=== PATIENT | male | born 1950 | race Caucasian/White ===

== ENCOUNTER 2017-01-07 12:32 | Inpatient (IN) | payer OTHER ==
[2017-01-07 12:54] VITALS: BMI 18.0
--- NOTE | 2017-01-07 13:27 | PDOC ---
History of Present Illness - General Stated Complaint: Tube Problem Time Seen by Provider: 01/07/17 13:10 - History of Present Illness Initial Comments: 66 year old male with PMH of hypothyroidism, insulin-dependent diabetes, DVTs ( previously on Coumadin), dementia, CVA, and basal cell carcinoma (s/p resection of facial lesions) presenting for right nephrostomy tube replacement. Per his long-term his right nephrostomy tube came out yesterday when he was turning in bed. He had a left nephrostomy tube as well that was removed a few months prior. The patient himself actually was only complaining of "My neck hurts, my feet hurt, and my kim hurts". Denies fevers, chills, nausea vomiting, diarrhea , or any other sick symptoms. His PCP is Dr. Nuha Ventura (unavailable) and patient is unsure who performed his nephrostomy tube placement but per his urologist (Dr. Melendez covering for Dr. Rivera) it was performed at [facility] (originally believed to be performed by Dr. Patel). 01/07/17 14:56 Past History - Past Medical History Allergies/Adverse Reactions: Allergies Allergy/AdvReac Type Severity Reaction Status Date / Time Sqvizmf-Ria-Xan Reductase Allergy Verified 02/17/13 09:42 Inhibitor Home Medications: Ambulatory Orders Carboxymethylcellulose Sodium [Refresh Plus] 1 each OP DAILY 01/07/17 Insulin Glargine,Hum.rec.anlog [Lantus (nf)] 12 units SQ HS 01/07/17 Insulin Sliding Scale [Novolog Vial Sliding Scale -] 0 units SQ TIDAC 01/07/17 Levothyroxine [Synthroid -] 175 mcg PO DAILY 01/07/17 Metoprolol Succinate [Toprol Xl -] 25 mg PO PRN 01/07/17 Oxycodone HCl/Acetaminophen [Percocet 5-325 mg Tablet] 2 tab PO Q6H 01/07/17 Ranitidine HCl [Zantac] 150 mg PO DAILY 01/07/17 Cancer: Yes (FACIAL SKIN CARCINOMA-RIGHT CHEECK) Cardiac Disorders: Yes (BLOOD CLOTS, R THIGH AND R KNEE) CVA: Yes (X6 PER PT.) Dementia: Yes (EARLY DEMENTIA, SLOW SPEECH) Diabetes: Yes (IDDM) Disorders: Yes (URINARY RETENTION) HTN: Yes Hypercholesterolemia: Yes Thyroid Disease: Yes (hypothyrodism) - Surgical History Orthopedic Surgery: Yes (L. Radius & Ulna) - Psycho/Social/Smoking Cessation Hx Anxiety: No Suicidal Ideation: No Smoking Status: No Smoking History: Never smoked Have you smoked in the past 12 months: No Number of Cigarettes Smoked Daily: 0 Information on smoking cessation initiated: No Hx Alcohol Use: No Drug/Substance Use Hx: No Substance Use Type: None Hx Substance Use Treatment: No Review of Systems - Review of Systems Constitutional: No: Chills, Diaphoresis, Fever HEENTM: No: Blurred Vision, Recent change in vision Respiratory: No: Cough, Shortness of Breath, Wheezing Cardiac (ROS): No: Chest Pain : Yes: Other (complains of generalized penis pain). No: Burning, Dysuria, Discharge Integumentary: No: Bruising, Erythema Neurological: No: Headache, Numbness *Physical Exam - Vital Signs Last Vital Signs Temp Pulse Resp BP Pulse Ox 98.7 F 67 18 138/71 97 01/07/17 12:48 01/07/17 12:48 01/07/17 12:48 01/07/17 12:48 01/07/17 12:48 - Physical Exam General Appearance: Yes: Nourished, Thin. No: Apparent Distress HEENT: positive: EOMI Neck: positive: Trachea midline, Supple. negative: Tender, Rigid Respiratory/Chest: positive: Other (Bilateral basilar crackles). negative: Chest Tender, Lungs Clear, Normal Breath Sounds, Respiratory Distress, Accessory Muscle Use Cardiovascular: positive: Regular Rhythm, Regular Rate, S1, S2. negative: Edema , Murmur Gastrointestinal/Abdominal: positive: Normal Bowel Sounds, Flat, Soft. negative : Tender Male Genitalia: positive: other (I attempted to examine the patient's penis but deferred the exam.) Musculoskeletal: positive: Normal Inspection, Other (Neck non tender.) Extremity: positive: Normal Capillary Refill, Normal Range of Motion, Other ( Toe nails appear to be in poor shape but not TTP anywhere.) Integumentary: positive: Warm, Pale Neurologic: positive: Fully Oriented, Alert, Motor Strength 5/5, Other (Despite verbal report of quadrapalagia, he is able to move all of his limbs). negative : Normal Mood/Affect (Easily able to agitated) ED Treatment Course - LABORATORY CBC & Chemistry Diagram: 01/07/17 13:53 01/07/17 13:53 Medical Decision Making - Medical Decision Making 66 year old male coming from long-term for right nephrostomy tube replacement. No other symptoms. Labs significant for elevated Cr to 2.2 and hyponatremia to 133. Patient is AOx3 but is a poor medical office technologist and doesn' t recall the reason he is in the ED or who placed his nephrostomy tube or where it was placed. Dr. Melendez (covering for Dr. Rivera) originally believed that his tube was placed by Dr. Patel but later found out his tube was placed at [facility]. He was sent to radiology to have the right tube replaced but directly prior to the procedure, he refused to sign the consent. He also has evidence of an SHARMILA per the values in the chart. Cr. 2.2 up from 0.6 4 years ago. This is most likely an element of CKD but further verification needs to take place. The patient will be admitted for further medial workup and nephrostomy tube replacement. 01/07/17 14:54 *DC/Admit/Observation/Transfer Diagnosis at time of Disposition: Nephrostomy complication, SHARMILA (acute kidney injury) - Discharge Dispostion Admit: Yes - Attestations Physician Attestion: 01/07/17 16:29 I, Dr. Desirae Landrum, attest that this document has been prepared under my direction and personally reviewed by me in its entirety. I further attest, that it accurately reflects all work, treatment, procedures and medical decision -making performed by me.
[2017-01-07 14:07] LABS: BASOPHIL 0.9 % (0-2.0); EOSINOPHIL 1.1 % (0-4.5); MCH 29.6 pg (25.7-33.7); MCHC 32.7 g/dl (32.0-35.9); MEAN CELL VOLUME 90.3 fl (80-96); MEAN PLT VOLUME 7.4 fl (7.5-11.1); NEUTROPHILS 64.9 % (42.8-82.8); PLATELET COUNT 237 K/MM3 (134-434); RDW 14.8 % (11.9-15.9); WHITE BLOOD COUNT 6.2 K/mm3 (4.0-10.0)
[2017-01-07 14:31] LABS: ALBUMIN 3.1 g/dl (3.4-5.0); ANION GAP 11 (8-16); CALCIUM 9.7 mg/dL (8.5-10.1); CO2 24 mmol/L (21-32); GLUCOSE,RANDOM 260 mg/dL (74-106)
[2017-01-07 14:33] LABS: INR 1.08 (0.82-1.09); PROTHROMBIN TIME (PATIENT) 11.9 SEC (9.98-11.88)
[2017-01-07 14:35] LABS: ALK PHOS 89 U/L (45-117); BILIRUBIN,TOTAL 0.8 mg/dL (0.2-1.0); CREATININE 2.2 mg/dL (0.7-1.3); SGPT/ALT 10 U/L (12-78); TOT PROT 7.9 g/dl (6.4-8.2)
[2017-01-07 14:36] LABS: ACTIVATED PTT 31.6 SECONDS (26.9-34.4)
[2017-01-07 14:47] LABS: SGOT/AST 9 U/L (15-37)
--- NOTE | 2017-01-07 15:02 | PDOC ---
Attending Attestation - HPI HPI: 01/07/17 15:05 Patient is a 66 year old male with significant past medical history of diabetes , Dementia , stroke, recurring UTIs who was brought in from [facility] to the ED with concerns that his right nephrostomy tube has fallen out earlier today. Patient is bed bound. Per [facility] staff patient has a chronic indwelling nephrostomy tube for months. They report the tube being dislodged today. He was sent for tube replacement by Dr. Ruben Rivera. Denies fever, chills. Denies nausea, vomiting dizziness. Denies chest pain, SOB, weakness. Denies any other symptoms. PMD: Nuha - Physicial Exam PE: 01/07/17 15:05 GENERAL: Awake, alert, and fully oriented, in no acute distress HEAD: No signs of trauma EYES: PERRLA, EOMI, sclera anicteric, conjunctiva clear ENT: Auricles normal inspection, nares patent, Moist mucosa NECK: Normal ROM, supple, no lymphadenopathy, JVD, or masses LUNGS: Breath sounds equal, clear to auscultation bilaterally. No wheezes, and no crackles HEART: Regular rate and rhythm, normal S1 and S2, no murmurs, rubs or gallops ABDOMEN: Soft, nontender, normoactive bowel sounds. No guarding, no rebound. No masses EXTREMITIES: + 5/5 Upper extremities and Lower extremities. Normal range of motion, no edema. No clubbing or cyanosis. No cords, erythema, or tenderness NEUROLOGICAL: +AAO x3 Normal speech SKIN: +Feet are contracted Warm, Dry, normal turgor, no rashes or lesions noted. - Medical Decision Making 01/07/17 15:05 Documentation prepared by Pineda Miranda, acting as medical assistant ob gyn for Yaritza Loving MD. <Pineda Miranda - Last Filed: 01/07/17 15:05> - Resident Resident Name: Desirae Landrum - ED Attending Attestation I have performed the following: I have examined & evaluated the patient, The case was reviewed & discussed with the resident, I agree w/resident's findings & plan, Exceptions are as noted - Medical Decision Making 01/07/17 15:01 66 yo M h/o DM HTN HLD prior CVA, bed bound her from [facility] with need for right nephrostomy replacement. plan will d/w dr rivera, or IR, and likely admit for procedure. labs preop. no current sx or sxs or infection. 01/07/17 15:43 pt alert and oriented x 3. moves all ext. at this time refusing nephrostomy placement. unclear why nephrostomy was placed, was placed at [facility], pt pcp dr. Box is out of town , no one covering . d/w covering for tommy rivera, Dr Arroyo who is unaware of why nephrostomy is indicated. pt with acute renal failure creatinine 2.[address] w/o contrast. consult by nephrology to eval necesity of tube placement. <Yaritza Loving - Last Filed: 01/07/17 15:45>
--- NOTE | 2017-01-07 15:34 | PROC ---
Procedure Note Procedure: Interventional Radiology Pre-procedure Note: Patient sent from ED for R percutaneous nephrostomy tube replacement. Seen by Dr. Mosher and myself. Patient was briefed on procedure and refused to consent, stating "I'm not signing anything". When informed of possible medical risks/ complications of refusing the procedure, patient acknowledged risks and continued to refuse procedure. Dr. Landrum was notified and witnessed refusal, as well. Joe Meyers, PGY1 Attending Physician: Dr. Mosher
[2017-01-07 15:38] LABS: URINE APPEARANCE CLOUDY; URINE BILIRUBIN NEGATIVE (NEGATIVE); URINE BLOOD 3+ (NEGATIVE); URINE COLOR DKYELLOW; URINE GLUCOSE (UA) 2+ (NEGATIVE); URINE KETONE TRACE (NEGATIVE); URINE NITRITE NEGATIVE (NEGATIVE); URINE UROBILINOGEN NEGATIVE mg/dL (0.2-1.0)
[2017-01-07 15:45] LABS: URINE LEUK ESTERASE 2+ (NEGATIVE); URINE PROTEIN 2+ (NEGATIVE)
[2017-01-07 15:48] LABS: URINE BACTERIA RARE /hpf (NONE SEEN); URINE RBC 149 /hpf (0-3); URINE WBC 448 /hpf (3-5)
--- NOTE | 2017-01-07 17:02 | HP ---
CHIEF COMPLAINT: PCP: HISTORY OF PRESENT ILLNESS: 66 year-old male, resident of [facility] in [place], with a PMH significant for mild mental retardation, dementia, h/o CVA, IDDM, h/o DVTs ( previously on coumadin), hypothyroidism, basal cell carcinoma s/p resection of facial lesions, urinary retention, and bilateral nephrostomy tubes. of unclear etiology. Patient brought to ED today because his right nephrostomy tube came out yesterday when he was turning in bed. Patient had a left nephrostomy tube which was reportedly removed a few months ago. Patient was taken from ED to IR suite for placement of a right percutaneous nephrostomy tube. but he refused to sign consent. Patient cannot give an accurate history, he appears severely circumscribed by his mental deficiencies. Reviewed records accompanying the patient from [facility]. There are no health care directives. PCP: Dr. Terry Ventura Urologist: Dr. Ruben Rivera (Dr. Melendez covering) ER course was notable for: (1) Na 133, BUN 36, Cr 2.2 (2) Corrected calcium 10.4 Recent Travel: No PAST MEDICAL HISTORY: Mild mental retardation Dementia h/o CVA IDDM h/o DVTs not on anticoagulation Hypothyroidism Basal cell carcinoma Urinary retention PAST SURGICAL HISTORY: Bilateral nephrostomy tubes Social History: Smoking: Alcohol: Drugs: Family History: Allergies Akeishp-Tez-Vja Reductase Inhibitor Allergy (Verified 02/17/13 09:42) Home Medications Medication Instructions Recorded Carboxymethylcellulose Sodium 1 each OP DAILY 01/07/17 [Refresh Plus] Insulin Glargine,Hum.rec.anlog 12 units SQ HS 01/07/17 [Lantus (nf)] Insulin Sliding Scale [Novolog 0 units SQ TIDAC 01/07/17 Vial Sliding Scale -] Levothyroxine [Synthroid -] 175 mcg PO DAILY 01/07/17 Metoprolol Succinate [Toprol Xl -] 25 mg PO PRN 01/07/17 Oxycodone HCl/Acetaminophen 2 tab PO Q6H 01/07/17 [Percocet 5-325 mg Tablet] Ranitidine HCl [Zantac] 150 mg PO DAILY 01/07/17 REVIEW OF SYSTEMS Unable to obtain due to patient's mental retardation v. dementia PHYSICAL EXAMINATION Vital Signs Temperature 98.7 F 01/07/17 12:48 Pulse Rate 67 01/07/17 12:48 Respiratory Rate 18 01/07/17 12:48 Blood Pressure 138/71 01/07/17 12:48 O2 Sat by Pulse Oximetry (%) 97 01/07/17 12:48 GENERAL: A&O x 1; confused about place and time. Irritable. Allowed only partial physical exam, "leave me alone." HEAD: Normal with no signs of trauma. EYES: Pupils equal, round and reactive to light, extraocular movements unable to be assessed; sclera anicteric, conjunctiva clear. No ptosis EARS, NOSE, THROAT: Refused exam NECK: Normal range of motion, supple without lymphadenopathy, JVD, or masses. LUNGS: Refused exam HEART: Regular rate and rhythm, normal S1 and S2, +murmur ABDOMEN: Refused exam : mcbride in place, dark urine in leg bag MUSCULOSKELETAL: Refused exam UPPER EXTREMITIES: 2+ pulses, warm, well-perfused. No cyanosis. No clubbing. No peripheral edema. LOWER EXTREMITIES: 2+ pulses, warm, well-perfused. No calf tenderness. No peripheral edema. NEUROLOGICAL: Cranial nerves II-XII intact. Normal speech. PSYCHIATRIC: Irritable. Cursing. Uncooperative. ASSESSMENT/PLAN 66 year-old male, [place] resident, with a PMH significant for mild mental retardation, dementia, h/o CVA, IDDM, h/o DVTs not on a/c, hypothyroidism, basal cell carcinoma s/p resection of facial lesions, urinary retention, and bilateral nephrostomy tubes. Admitted for SHARMILA, and displaced right nephrostomy tube. Displaced right nephrostomy tube --presently refusing to consent to procedure to replace tube --unable to get history from patient and EMR is unrevealing as to why nephrostomy tubes were placed --urology consult requested --IR on board SHARMILA --Cr 2.2, baseline unclear; labs from 11/18/16 show Cr 2.0; Cr was 0.6 in 2013 --US renal pending --check FeNa --IV fluids --renal consult requested Hypercalcemia --check ECG --IV fluids for now Urinary retention Chronic indwelling mcbride UTI --patient came from [place] with mcbride --448 WBCs in urine --start ceftriaxone Hypothyroidism --labs from 11/18/16 show TSH wnl --continue levothyroxine Mental retardation v. dementia --question of competency --will contact [facility] to get better history, advanced directives, etc. ; if none, will have to get psych assessment F/E/N Fluids: NS @ 100mL/hr Electrolytes: replete as indicated Nutrition: diabetic diet; NPO after midnight for possible procedure tomorrow DVT prophylaxis: hold chemical prophylaxis for now pending nephrostomy tube placement; oob, ambulation, SCDs Dispo: quecontinues to require inpatient care. Full code. Visit type - Emergency Visit Emergency Visit: Yes ED Registration Date: 01/07/17 Care time: The patient presented to the Emergency Department on the above date and was hospitalized for further evaluation of their emergent condition. - New Patient This patient is new to me today: Yes Date on this admission: 01/07/17 - Critical Care Critical Care patient: No
[2017-01-07] MEDS ORDERED: METOPROLOL SUCCINATE 25 MG TAB.SR.24H (FP) PO SCH (17:15)
[2017-01-07] MEDS ORDERED: SODIUM CHLORIDE 1,000 ML IV SCH (17:45)
--- NOTE | 2017-01-07 18:45 | EKG ---
Test Reason : Blood Pressure : / mmHG Vent. Rate : 062 BPM Atrial Rate : 062 BPM P-R Int : 172 ms QRS Dur : 086 ms QT Int : 450 ms P-R-T Axes : 044 -17 065 degrees QTc Int : 456 ms NORMAL SINUS RHYTHM SEPTAL INFARCT , AGE UNDETERMINED ABNORMAL ECG WHEN COMPARED WITH ECG OF 17-FEB-2013 10:55, Q WAVE IS NOW RECORDED IN V2 REPEAT EKG IF CLINICALLY INDICATED Confirmed by DORINDA LEYVA MD ([id number]) on 01/07/2017 6:45:01 PM Referred By: Confirmed By:DORINDA LEYVA MD
[2017-01-07] MEDS: RANITIDINE HCL 150 MG TABLET (FP) PO SCH (21:31)
[2017-01-07] MEDS: CEFTRIAXONE 1 GM in DEXTROSE 5%-WATER - 50 ML IVPB SCH (21:32)
[2017-01-07] MEDS: LEVOTHYROXINE NA 175 MCG TABLET PO SCH (21:32)
[2017-01-07] MEDS ORDERED: INSULIN DETEMIR 100 UNITS/ML MDV SQ SCH ×2 (22:00)
[2017-01-07] MEDS: INSULIN SLIDING SCALE (NOVOLOG) 1 VIAL SQ SCH (22:14)
[2017-01-07] MEDS: HEPARIN NA (PORCINE) 5,000 UNITS/ML 1ML VIAL SQ SCH (22:15)
[2017-01-07] MEDS ORDERED: ACETAMINOPHEN 500 MG TABLET (FP) PO ONE (22:28)
[2017-01-08] MEDS ORDERED: oxyCODONE HCL 5 MG TABLET PO ONE (01:05)
[2017-01-08] MEDS ORDERED: ACETAMINOPHEN 325 MG TABLET (FP) PO ONE (01:05)
[2017-01-08] MEDS ORDERED: oxyCODONE HCL 5 MG TABLET ONE (01:24)
[2017-01-08 07:27] LABS: MCH 29.5 pg (25.7-33.7); MCHC 29.4 g/dl (32.0-35.9); MEAN CELL VOLUME 100.5 fl (80-96); MEAN PLT VOLUME 7.4 fl (7.5-11.1); PLATELET COUNT 381 K/MM3 (134-434); RDW 16.3 % (11.9-15.9)
[2017-01-08 07:29] LABS: ALBUMIN 3.3 g/dl (3.4-5.0); ALK PHOS 105 U/L (45-117); BILIRUBIN,TOTAL 0.7 mg/dL (0.2-1.0); CALCIUM 10.3 mg/dL (8.5-10.1); CREATININE 3.3 mg/dL (0.7-1.3); MAGNESIUM 2.6 mg/dL (1.8-2.4); SGOT/AST 6 U/L (15-37); SGPT/ALT 10 U/L (12-78); TOT PROT 8.2 g/dl (6.4-8.2)
[2017-01-08 07:34] LABS: ANION GAP 32 (8-16); CO2 4 mmol/L (21-32)
[2017-01-08 07:39] LABS: GLUCOSE,RANDOM 691 mg/dL (74-106)
[2017-01-08] MEDS: PROPOFOL 100 ML IVPB SCH (08:00)
[2017-01-08] MEDS ORDERED: INSULIN REGULAR HUMAN 100 UNITS/ML *VIAL IVPUSH ONE (08:07)
[2017-01-08] MEDS ORDERED: DEXTROSE 50%-WATER - 25 GM/50 ML VIAL IVPUSH ONE (08:08)
[2017-01-08] MEDS ORDERED: SODIUM CHLORIDE 1,000 ML IV STA ×2 (08:12→08:22)
[2017-01-08] MEDS ORDERED: INSULIN REGULAR 100 UNITS in SODIUM CHLORIDE 99 ML IVPB SCH (08:15)
[2017-01-08] MEDS ORDERED: SODIUM CHLORIDE 1,000 ML IV SCH ×3 (08:30→21:13)
[2017-01-08] MEDS ORDERED: CALCIUM GLUCONATE 10% - 1,000 MG/10 ML VIAL IVPUSH ONE (08:32)
[2017-01-08 08:35] LABS: ALLENS TEST POSITIVE; ART PUNCT SITE LEFT RADIAL; ARTERIAL BLD GAS O2 SATURATION 97.1 % (90-98.9); ARTERIAL BLOOD GAS BASE EXCESS -29.5 meq/l (-2-2); ARTERIAL BLOOD GAS HCO3 1.8 meq/L (22-26); LPM/O2% 2L; PT. ON O2? YES; TYPE OF O2 NASAL CANNULA
[2017-01-08 08:36] LABS: ARTERIAL BLOOD GAS pH 6.97 (7.35-7.45)
[2017-01-08 08:39] LABS: BASOPHIL 1.2 % (0-2.0); EOSINOPHIL 0.1 % (0-4.5); NEUTROPHILS 89.7 % (42.8-82.8)
[2017-01-08] MEDS ORDERED: ETOMIDATE 20 MG/10 ML AMPUL IVPUSH ONE (08:44)
[2017-01-08] MEDS ORDERED: PROPOFOL 100 ML ONE ×2 (08:45→12:20)
--- NOTE | 2017-01-08 09:14 | PN ---
Physical Exam: ADDITIONAL HISTORY: Received and reviewed medical records from [facility]. Additional Medical History Hypertension Neurogenic bladder BPH Chronic kidney disease Bladder mass Quadriplegia/Paraplegia Additional Surgical History s/p left ureteral JJ stent placement 11/20/16 Recent hospitalization 11/20/16 admitted to [facility] for a displaced LEFT nephrostomy tube. A right nephrectomy tube was in situ at the time. On 11/26/16 patient underwent left ureteral JJ stent placement, TURBT, bladder mass biopsy, and fulgaration of bladder mass. Procedure performed by Dr. Gab Ambrosio. Patient was discharged back to [place] on 11/28/16. SUBJECTIVE: Patient seen and examined in ICU. OBJECTIVE: Vital Signs Period Temp Pulse Resp BP Sys/Franklin Pulse Ox Last 24 Hr 98 F 87-120 18-32 121-156/65-78 GENERAL/NEURO: The patient is not responsive, not responding to voice or physical stimuli, in severe respiratory distress. Intubated. HEAD: Normal with no signs of trauma. LUNGS: Tachypnic. HEART: Regular rate and rhythm, S1, S2 without murmur, rub or gallop. ABDOMEN: Soft, nontender, nondistended EXTREMITIES: 2+ pulses, warm, well-perfused, no edema. NEUROLOGICAL: Cranial nerves II through XII grossly intact. Normal speech, gait not observed. Laboratory Results - last 24 hr 01/08/17 01/08/17 01/08/17 06:00 06:00 06:34 WBC 15.0 H D RBC 3.84 L Hgb 11.3 L Hct 38.5 MCV 100.5 H MCH 29.5 MCHC 29.4 L RDW 16.3 H D Plt Count 381 D MPV 7.4 L Neutrophils % 89.7 H D Lymphocytes % 6.0 L D Monocytes % 3.0 L Eosinophils % 0.1 D Basophils % 1.2 Anticoagulation Therapy Puncture Site ABG pH ABG pCO2 at Pt Temp ABG pO2 at Pt Temp ABG HCO3 ABG O2 Sat (Measured) ABG O2 Content ABG Base Excess Oleksandr Test O2 Delivery Device Oxygen Flow Rate Vent Mode Vent Rate Mechanical Rate PEEP Pressure Support Vent Sodium 128 L Potassium 6.5 H* D Chloride 92 L Carbon Dioxide 4 L D Anion Gap 32 H BUN 56 H D Creatinine 3.3 H D Creat Clearance w eGFR 18.85 POC Glucometer > 600 Random Glucose 691 H* D Calcium 10.3 H Phosphorus 7.0 H D Magnesium 2.6 H D Total Bilirubin 0.7 AST 6 L D ALT 10 L Alkaline Phosphatase 105 Total Protein 8.2 Albumin 3.3 L 01/08/17 08:21 WBC RBC Hgb Hct MCV MCH MCHC RDW Plt Count MPV Neutrophils % Lymphocytes % Monocytes % Eosinophils % Basophils % Anticoagulation Therapy Y Puncture Site Left radial ABG pH 6.97 L* ABG pCO2 at Pt Temp 8.2 L* ABG pO2 at Pt Temp 140.0 H ABG HCO3 1.8 L* ABG O2 Sat (Measured) 97.1 ABG O2 Content 14.3 L ABG Base Excess -29.5 L* Oleksandr Test Positive O2 Delivery Device Nasal cannula Oxygen Flow Rate 2l Vent Mode Y Vent Rate Y Mechanical Rate Y PEEP 0.0 Pressure Support Vent Y Sodium Potassium Chloride Carbon Dioxide Anion Gap BUN Creatinine Creat Clearance w eGFR POC Glucometer Random Glucose Calcium Phosphorus Magnesium Total Bilirubin AST ALT Alkaline Phosphatase Total Protein Albumin Active Medications Generic Name Dose Route Start Last Admin Trade Name Freq PRN Reason Stop Dose Admin Clopidogrel Bisulfate 75 mg 01/08/17 10:00 Plavix - PO DAILY [facility] Heparin Sodium (Porcine) 5,000 unit 01/07/17 22:00 01/07/17 22:15 Heparin - SQ Not Given BID [facility] Ceftriaxone Sodium 1 gm/ 50 mls @ 100 mls/hr 01/07/17 19:15 01/07/17 21:32 Dextrose IVPB Not Given DAILY [facility] Insulin Human Regular 100 100 mls @ 5.53 mls/hr 01/08/17 08:15 units/ Sodium Chloride IVPB TITR CLARE Protocol 0.1 UNITS/KG/HR Sodium Chloride 1,000 mls @ 1,000 mls/hr 01/08/17 08:22 Normal Saline - IV 01/08/17 09:21 ASDIR STA Sodium Chloride 1,000 mls @ 200 mls/hr 01/08/17 08:30 Normal Saline - IV ASDIR CLARE Fentanyl 500 mcg/ Dextrose 100 mls @ 20 mls/hr 01/08/17 09:15 IJ TITR CLARE 100 MCG/HR Levothyroxine Sodium 175 mcg 01/07/17 17:15 0822/17 21:32 Synthroid - PO Not Given DAILY [facility]ARE Ranitidine HCl 150 mg 01/07/17 17:15 01/07/17 21:31 Zantac - PO Not Given DAILY CLARE ASSESSMENT/PLAN 66 year-old male, [place] resident, with a PMH significant for HTN, dementia/ otherwise unspecified psych disorder, h/o CVA on Plavix, IDDM, h/o DVTs not on a /c, hypothyroidism, basal cell carcinoma s/p resection of facial lesions, CKD, neurogenic bladder, bladder mass, s/p left ureteral JJ stent and bilateral nephrostomy tubes (both out at present), and paraplegia. Admitted for SHARMILA and displaced right nephrostomy tube. Hospital course complicated by severe DKA and acute respiratory failure. DKA IDDM --AG 32 --pre-intubation 6.97/8/140/1.8/97% on 2L --post-intubation 7.19/17/214/6.2/99% on 40% FiO2 --insulin drip and BGMq1h until AG closed --electrolytes improving; K6.5--5.8; Na 128-->132; Ca 10.9-->9.7 (corrected) --aggressive fluid resuscitation Acute on chronic renal insufficiency --Records from [place] and [facility] shows baseline Cr ~2.0; today 3.3 --IV fluids --US renal pending --renal following Displaced right nephrostomy tube Neurogenic bladder Chronic indwelling mcbride s/p left ureteral stent placement Bladder mass UTI --patient had bilateral nephrostomy tubes placed some time in the past; in November 2016, on admission to [facility], the left tube was out and not replaced but left JJ ureteral stent was placed --on admission here, the right tube was out; patient refused to consent to replace --448 WBCs in urine but drawn off existing mcbride; remove and replace mcbride, send off new UA & UC --WBC spike 6.2-->15.0k, afebrile --continue ceftriaxone --patient is followed by urologist Dr. 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 Reji Rodriguez, shot grinder operator in [place], [place] ( ); advises patient has decades-long history of anti- social behavior, has been under psychiatric care; he does not know if patient has ever been actually diagnosed with dementia; he is not HCP --will need psych consult when patient extubated Basal cell carcinoma --no acute issues Paraplegia --PT evaluation DVT prophylaxis: subq heparin Dispo: According to Dr. Rodriguez, patient's brother, patient's son Nba Rodriguez ( ) is the HCP. This provider left a message Nba's phone earlier this morning. Patient is and estranged from his ex- and from a daughter who lives in [place]. Patient continues to require ICU level care. FULL CODE. Visit type - Emergency Visit Emergency Visit: Yes ED Registration Date: 01/07/17 Care time: The patient presented to the Emergency Department on the above date and was hospitalized for further evaluation of their emergent condition. - New Patient This patient is new to me today: No - Critical Care Critical Care patient: Yes Total Critical Care Time (in minutes): 45 Critical Care Statement: The care of this patient involved high complexity decision making to prevent further life threatening deterioration of the patient 's condition and/or to evaluate & treat vital organ system(s) failure or risk of failure.
--- NOTE | 2017-01-08 09:44 | PROC ---
Intubation - Intubation Reason for Intubation: Respiratory Insufficiency, Respiratory Failure, Airway Protection, Ventilatory Failure Intubation Method: orotracheal Blade used: Mac Tube Size (cm): 8.0 Tube position @ lip (cm): 22 Tube position confirmed by: Direct visualization, CO2 detector, Chest x-ray, Breath sounds Breath Sounds after Intubation: equal Post Intubation Xray: Yes
[2017-01-08] MEDS ORDERED: MIDAZOLAM HCL 5 MG/1 ML Single Dose Vial IVPUSH ONE (09:52)
[2017-01-08] MEDS: FENTANYL INJECTION 500 MCG in DEXTROSE 5%-WATER - 90 ML IJ SCH ×2 (09:55→14:20)
[2017-01-08] MEDS ORDERED: SODIUM BICARBONATE 8.4% - 150 MEQ in DEXTROSE 5%-WATER - 1,000 ML IV SCH (10:00)
[2017-01-08] MEDS ORDERED: LEVOTHYROXINE SODIUM 100 MCG VIAL IVPUSH ONE ×2 (10:02→11:00)
[2017-01-08] MEDS ORDERED: SODIUM BICARBONATE 8.4% 50 MEQ/50 ML VIAL ONE ×2 (10:16→10:17)
[2017-01-08] MEDS: INSULIN SLIDING SCALE (NOVOLOG) 1 VIAL SQ SCH (10:49)
[2017-01-08] MEDS: LEVOTHYROXINE NA 175 MCG TABLET PO SCH (10:50)
[2017-01-08] MEDS: RANITIDINE HCL 150 MG TABLET (FP) PO SCH (10:50)
[2017-01-08] MEDS: CLOPIDOGREL BISULFATE 75 MG TABLET (FP) PO SCH (10:51)
--- NOTE | 2017-01-08 10:53 | PN ---
Teaching Attending Note Name of Resident: Link Baez ATTENDING PHYSICIAN STATEMENT I saw and evaluated the patient. I reviewed the resident's note and discussed the case with the resident. I agree with the resident's findings and plan as documented. SUBJECTIVE: Pt seen and examined in the ICU. Briefly, 66yo male with h/o DM, hypothyroidism , h/o DVT, urinary retention with bilateral nephrostomy tubes who was sent from the long-term after nephrostomy tube was dislodged. Refused replacement of tube and insulin while inpatient, found to have a UTI. AM labs today with high anion gap metabolic acidosis and hyperglycemia. ABG showing severe metabolic acidosis, transferred to the ICU and subsequently intubated. OBJECTIVE: Last Vital Signs Temp Pulse Resp BP Pulse Ox 97.8 F 87 30 H 92/46 97 01/08/17 10:00 01/08/17 10:00 01/08/17 10:00 01/08/17 10:00 01/07/17 12:48 Intake & Output 01/05/17 01/06/17 01/07/17 01/08/17 23:59 23:59 23:59 23:59 Output Total 300 100 Balance -300 -100 Weight 122 lb Gen: intubated, sedated, tachypneic Heart: RRR Lung: distant breath sounds Abd: soft, nontender Ext: no edema CBC, BMP 01/08/17 06:00 Active Medications Clopidogrel Bisulfate (Plavix -) 75 mg PO DAILY [facility] Heparin Sodium (Porcine) (Heparin -) 5,000 unit SQ BID [facility] Last Admin: 01/07/17 22:15 Dose: Not Given Ceftriaxone Sodium 1 gm/ (Dextrose) 50 mls @ 100 mls/hr IVPB DAILY [facility] Last Admin: 01/07/17 21:32 Dose: Not Given Insulin Human Regular 100 (units/ Sodium Chloride) 100 mls @ 5.53 mls/hr IVPB TITR CLARE; 0.1 UNITS/KG/HR PRN Reason: Protocol Last Admin: 01/08/17 08:15 Dose: 5.53 mls/hr Fentanyl 500 mcg/ Dextrose 100 mls @ 20 mls/hr IJ TITR [facility]ARE PRN Reason: 100 MCG/HR Last Admin: 01/08/17 09:55 Dose: 20 mls/hr Sodium Bicarbonate 150 meq/ (Dextrose) 1,150 mls @ 200 mls/hr IV Q6H [facility] Levothyroxine Sodium (Synthroid -) 175 mcg PO DAILY [facility] Last Admin: 01/07/17 21:32 Dose: Not Given Levothyroxine Sodium (Synthroid Injection -) 90 mcg IVPUSH ONCE ONE Stop: 01/08/17 11:01 Ranitidine HCl (Zantac -) 150 mg PO DAILY [facility] Last Admin: 01/07/17 21:31 Dose: Not Given ASSESSMENT AND PLAN: Acute Respiratory Failure Diabetic Ketoacidosis Metabolic Acidosis Hyperkalemia Acute Kidney Injury UTI Hypothyroidism Urinary Retention - IV insulin gtt until anion gap closed - monitor BMP q4h, BGM q1h until anion gap closed - aggressive IVF resuscitation - bicarb gtt until pH >7.1 - if K <4.5 while on insulin gtt, add KCl to IVF - if BGM <250 while on insulin gtt, add D5 to IVF - adjusted vent settings - sedate for vent synchrony - IV antibiotics - f/u cultures - NPO - DVT/GI prophylaxis - ICU monitoring critical care time spent in reviewing chart, evaluating patient and formulating plan 40 min
[2017-01-08] MEDS ORDERED: PT OWN MED DRAWER 7, Y5N ONE ×2 (11:00→11:23)
[2017-01-08 11:06] LABS: ANION GAP 30 (8-16); CALCIUM 9.1 mg/dL (8.5-10.1); CO2 6 mmol/L (21-32); CREATININE 3.3 mg/dL (0.7-1.3)
[2017-01-08] MEDS: HEPARIN NA (PORCINE) 5,000 UNITS/ML 1ML VIAL SQ SCH ×2 (11:11→21:21)
[2017-01-08 11:12] LABS: GLUCOSE,RANDOM 663 mg/dL (74-106)
--- NOTE | 2017-01-08 11:15 | EKG ---
Test Reason : Blood Pressure : / mmHG Vent. Rate : 107 BPM Atrial Rate : 107 BPM P-R Int : 160 ms QRS Dur : 090 ms QT Int : 336 ms P-R-T Axes : 044 022 043 degrees QTc Int : 448 ms SINUS TACHYCARDIA OTHERWISE NORMAL ECG WHEN COMPARED WITH ECG OF 07-JAN-2017 14:10, VENT. RATE HAS INCREASED BY 45 BPM CRITERIA FOR SEPTAL INFARCT ARE NO LONGER PRESENT Confirmed by BRITNEY HERNANDEZ, FLORENTINO ([id number]) on 01/08/2017 11:15:15 AM Referred By: Michael YATES Confirmed By:FLORENTINO TAN MD
[2017-01-08] MEDS ORDERED: SODIUM BICARBONATE 8.4% - 150 MEQ in DEXTROSE 5%-WATER - 1,000 ML IV ONE (11:45)
[2017-01-08 12:07] LABS: ARTERIAL BLD GAS O2 SATURATION 99.6 % (90-98.9); ARTERIAL BLOOD GAS BASE EXCESS -20.7 meq/l (-2-2); ARTERIAL BLOOD GAS HCO3 6.2 meq/L (22-26)
[2017-01-08 12:11] LABS: ALLENS TEST POSITIVE; ART PUNCT SITE LEFT RADIAL; PT. ON O2? YES
[2017-01-08 12:12] LABS: ARTERIAL BLOOD GAS pH 7.19 (7.35-7.45); LPM/O2% 40
[2017-01-08] MEDS: METOPROLOL TARTRATE 50 MG TABLET (FP) PO SCH ×2 (12:15→21:22)
[2017-01-08] MEDS: CEFTRIAXONE 50 ML IVPB SCH (12:59)
[2017-01-08] MEDS: CEFTRIAXONE 1 GM in DEXTROSE 5%-WATER - 50 ML IVPB SCH (13:00)
--- NOTE | 2017-01-08 13:59 | CONSULT ---
Consult Consult Specialty:: Nephrology Reason for Consultation:: SAMIR and hyperkalemia - History of Present Illness Chief Complaint: initially presented for right nephrostomy tube replacement History of Present Illness: Pt is a 66 year old male with pmhx of DM, hypothyroidism, DVT, dementia, basal cell cancer and CVA who presents to the ER for nephrostomy tube change. His right nephrostomy tube fell out and needed to be changed. He was sent to IR however refused to give consent. He was admitted and later developed respiratory failure. He was also found to be in DKA. He is admitted to the ICU. Chart was reviewed and discussed with ICU team. 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: CVA, Dementia Cardio/Vascular: Yes: HTN Renal/: Yes: Renal Inusuff Endocrine: Yes: Diabetes Mellitus, Hypothyroidism Dermatology: Yes: Basal Cell - Alcohol/Substance Use Hx Alcohol Use: No - Smoking History Smoking history: Never smoked Have you smoked in the past 12 months: No Aproximately how many cigarettes per day: 0 Home Medications - Allergies Allergies/Adverse Reactions: Allergies Allergy/AdvReac Type Severity Reaction Status Date / Time Almpqee-Pzr-Otn Reductase Allergy Verified 02/17/13 09:42 Inhibitor - Home Medications Home Medications: Ambulatory Orders Carboxymethylcellulose Sodium [Refresh Plus] 1 each OP DAILY 01/07/17 Clopidogrel Bisulfate [Plavix -] 75 mg PO DAILY 01/07/17 Insulin Glargine,Hum.rec.anlog [Lantus (nf)] 12 units SQ HS 01/07/17 Insulin Sliding Scale [Novolog Vial Sliding Scale -] 0 units SQ TIDAC 01/07/17 Levothyroxine [Synthroid -] 175 mcg PO DAILY 01/07/17 Metoprolol Succinate [Toprol Xl -] 25 mg PO PRN 01/07/17 Metoprolol Tartrate [Lopressor -] 12.5 mg PO BID 01/07/17 Oxycodone HCl/Acetaminophen [Percocet 5-325 mg Tablet] 2 tab PO Q6H 01/07/17 Ranitidine HCl [Zantac] 150 mg PO DAILY 01/07/17 Family Disease History - Family Disease History Family History: Unable to Obtain Review of Systems Unable to obtain ROS, reason: intubated Physical Exam Vital Signs: Vital Signs Temperature 97.8 F 01/08/17 10:00 Pulse Rate 88 01/08/17 12:00 Respiratory Rate 28 H 01/08/17 12:00 Blood Pressure 91/57 01/08/17 12:00 O2 Sat by Pulse Oximetry (%) 97 01/07/17 12:48 Constitutional: Yes: Calm Eyes: Yes: Conjunctiva Clear Cardiovascular: Yes: S1, S2 Respiratory: Yes: Mechanically Ventilated Gastrointestinal: Yes: Soft Renal/: Yes: Wolfe Present, Other (draining from right nephrostomy tube site) Musculoskeletal: Yes: Muscle Weakness Edema: No Neurological: Yes: Lethargy Labs: CBC, BMP 01/08/17 06:00 01/08/17 10:20 Laboratory Tests 01/07/17 01/08/17 01/08/17 13:53 06:00 10:20 ABG pH ABG pCO2 at Pt Temp ABG pO2 at Pt Temp ABG HCO3 ABG O2 Sat (Measured) ABG O2 Content Sodium 133 L 128 L 132 L Potassium 4.7 6.5 H* D 5.8 H Chloride 96 L Carbon Dioxide 4 L D 6 L D Anion Gap 32 H 30 H BUN 56 H D 54 H Creatinine 3.3 H D 3.3 H 01/08/17 12:00 ABG pH 7.19 L* D ABG pCO2 at Pt Temp 17.0 L* D ABG pO2 at Pt Temp 214.0 H* ABG HCO3 6.2 L* ABG O2 Sat (Measured) 99.6 H* ABG O2 Content 13.0 L Sodium Potassium Chloride Carbon Dioxide Anion Gap BUN Creatinine Imaging - Results Chest X-ray: Report Reviewed Ultrasound: Report Reviewed Problem List - Problems (1) SAMIR (acute kidney injury) Code(s): N17.9 - ACUTE KIDNEY FAILURE, UNSPECIFIED (2) Diabetic ketoacidosis with coma Code(s): E13.11 - OTH DIABETES MELLITUS WITH KETOACIDOSIS WITH COMA (3) Nephrostomy complication Code(s): N99.528 - OTHER COMP OF INCONTINENT EXTERNAL STOMA OF URINARY TRACT Assessment/Plan Current Medications Generic Name Dose Route Start Last Admin Trade Name Freq PRN Reason Stop Dose Admin Clopidogrel Bisulfate 75 mg 01/08/17 10:00 01/08/17 10:51 Plavix - PO Not Given DAILY [facility] Heparin Sodium (Porcine) 5,000 unit 01/07/17 22:00 01/08/17 11:11 Heparin - SQ 5,000 unit BID [facility] Administration Insulin Human Regular 100 100 mls @ 5.53 mls/hr 01/08/17 08:15 01/08/17 11:15 units/ Sodium Chloride IVPB 0.14 units/kg/hr TITR CLARE Titration Protocol 0.1 UNITS/KG/HR Fentanyl 500 mcg/ Dextrose 100 mls @ 20 mls/hr 01/08/17 09:15 01/08/17 14:20 IJ 20 mls/hr TITR CLARE Administration 100 MCG/HR Ceftriaxone Sodium 50 mls @ 100 mls/hr 01/08/17 11:45 01/08/17 12:59 Rocephin 1gm Ivpb (Pre-Docked) IVPB 100 mls/hr DAILY [facility] Administration Propofol 100 mls @ 3.32 mls/hr 01/08/17 14:15 01/08/17 08:00 Diprivan - IVPB 3.32 mls/hr TITR CLARE Administration Protocol 10 MCG/KG/MIN Sodium Chloride 1,000 mls @ 200 mls/hr 01/08/17 14:15 01/08/17 14:29 Normal Saline - IV 200 mls/hr ASDIR CLARE Administration Levothyroxine Sodium 175 mcg 01/07/17 17:15 01/08/17 10:50 Synthroid - PO Not Given DAILY [facility] Metoprolol Tartrate 12.5 mg 01/08/17 11:45 01/08/17 12:15 Lopressor - PO Not Given BID CLARE Ranitidine HCl 150 mg 01/07/17 17:15 01/08/17 10:50 Zantac - PO Not Given DAILY [facility] Impression 1. Samir 2. DKA 3. hyperkalemia 4. 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 obstructive uropathy with nephrostomy tube dislodged 6. dementia 7. developemental delay 8. hypothyroidism 9. DM 10. acidosis 11. respiratory failure - acute requiring intubation Plan - can change fluids to saline - monitor urine output - send urine lytes and type rolling machine operator to calc fena - renal ultrasound reviewed - urology evaluation - cont with insulin drip - monitor lytes closely - discussed with ICU team - will need better glucose control - follow anion gap - will follow pt Dr Ruelas
--- NOTE | 2017-01-08 15:02 | CONSULT ---
Consult Consult Specialty:: pulm/CCM Referred by:: MARKY Silverio Reason for Consultation:: DKA and respiratory distress - History of Present Illness History of Present Illness: 66M PMH of DM, hypothyroidism, h/o DVT, mild mental retardation, urinary retention with bilateral nephrostomy tubes who was sent from the correction after one of the nephrostomy tube was dislodged. one nephrostomy tube was removed a few months ago per the primary team. patient was supposed to be admitted for 23 hour stay for nrphrostomy tube replacement and he then refused replacement of tube. Patient also refused insulin while inpatient and was found to have a UTI. morning labs today with high anion gap metabolic acidosis and hyperglycemia. ABG showing severe metabolic acidosis, transferred to the ICU and subsequently intubated for acute respiratory distress. 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 has hardware on CXR in cervical spine. nephrostomy tubes - Alcohol/Substance Use Hx Alcohol Use: No - Smoking History Smoking history: Never smoked Have you smoked in the past 12 months: No Aproximately how many cigarettes per day: 0 Home Medications - Allergies Allergies/Adverse Reactions: Allergies Allergy/AdvReac Type Severity Reaction Status Date / Time Jeejwlh-Xrn-Efe Reductase Allergy Verified 02/17/13 09:42 Inhibitor - Home Medications Home Medications: Ambulatory Orders Carboxymethylcellulose Sodium [Refresh Plus] 1 each OP DAILY 01/07/17 Clopidogrel Bisulfate [Plavix -] 75 mg PO DAILY 01/07/17 Insulin Glargine,Hum.rec.anlog [Lantus (nf)] 12 units SQ HS 01/07/17 Insulin Sliding Scale [Novolog Vial Sliding Scale -] 0 units SQ TIDAC 01/07/17 Levothyroxine [Synthroid -] 175 mcg PO DAILY 01/07/17 Metoprolol Succinate [Toprol Xl -] 25 mg PO PRN 01/07/17 Metoprolol Tartrate [Lopressor -] 12.5 mg PO BID 01/07/17 Oxycodone HCl/Acetaminophen [Percocet 5-325 mg Tablet] 2 tab PO Q6H 01/07/17 Ranitidine HCl [Zantac] 150 mg PO DAILY 01/07/17 Family Disease History - Family Disease History Family History: Unable to Obtain Review of Systems Unable to obtain ROS, reason: patient unresponsive Physical Exam Vital Signs: Vital Signs Temperature 97.8 F 01/08/17 10:00 Pulse Rate 88 01/08/17 12:00 Respiratory Rate 17 01/08/17 14:30 Blood Pressure 91/57 01/08/17 12:00 O2 Sat by Pulse Oximetry (%) 97 01/07/17 12:48 Constitutional: Yes: Anxious, Severe Distress Eyes: Yes: Conjunctiva Clear HENT: Yes: Atraumatic, Normocephalic Neck: Yes: Supple, Trachea Midline Cardiovascular: Yes: Regular Rate and Rhythm. No: Murmur Respiratory: Yes: Diminished Gastrointestinal: Yes: Soft, Tenderness (mild) Edema: No Neurological: Yes: Other (responive to painful stimuli) Labs: CBC, BMP 01/08/17 06:00 01/08/17 10:20 Imaging - Results Chest X-ray: Report Reviewed, Image Reviewed Ultrasound: Report Reviewed Assessment/Plan 66M with history of DM and neurogenic bladder presented to hospital for nephrostomy tube replacement found to be in DKA. diabetic ketoacidosis: from insulin noncomplicance and superimposed UTI insulin gtt IVF NS @ 200ml/hr stop bicarb gtt recheck ABG BMP q4h trend anion gap switch to long acting insulin once anion gap closes replete lytes PRN metabolic acidosis: from DKA trend BMP stop bicarb gtt trend ABG and pH Hyperkalemia: resolving with insulin gtt trend BMP q4h acute on chronic ckd:oiligouric at this time per primary team patient has a creatinine of 2.0 at [facility] nephrology consult appreciated trend creatinine renally dose all meds avoid nephrotoxic drugs sepsis secondary complicated UTI: send UCx and follow up sensitivies and ID continue ceftriaxone empirically send blood cultures Hypothyroidism: give a dose of IV synthroid today Urinary retention:patient has a chronic neurogenic bladder will change mcbride send urine culture IR to possibly replace nephrostomy tubes FEN: NS @ 200ml/hr hyperkalemia: improving with insulin gtt NPO for now PPx: HSQ/SCDs Zantac PT consult Case discussed with attending Dr. Ramirez
[2017-01-08 15:42] LABS: ANION GAP 21 (8-16); CALCIUM 8.6 mg/dL (8.5-10.1); CO2 11 mmol/L (21-32); CREATININE 3.3 mg/dL (0.7-1.3)
[2017-01-08 16:02] LABS: GLUCOSE,RANDOM 694 mg/dL (74-106)
[2017-01-08 19:15] LABS: VENOUS BLOOD GAS HCO3 14.1 meq/L (19-25); VENOUS PH 7.2 (7.32-7.42)
[2017-01-08 20:37] LABS: ANION GAP 17 (8-16); CALCIUM 8.5 mg/dL (8.5-10.1); CO2 16 mmol/L (21-32); CREATININE 3.4 mg/dL (0.7-1.3)
[2017-01-08 20:43] LABS: GLUCOSE,RANDOM 497 mg/dL (74-106)
[2017-01-08] MEDS ORDERED: SODIUM CHLORIDE 1,000 ML with POTASSIUM CHLORIDE 10 MEQ IVPB SCH ×2 (21:08→22:08)
[2017-01-08] MEDS: MUPIROCIN 2% TOPICAL OINTMENT FOR DECOLONIZATION NS SCH (21:21)
[2017-01-08 21:55] LABS: ANION GAP 15 (8-16); CALCIUM 8.3 mg/dL (8.5-10.1); CO2 16 mmol/L (21-32); CREATININE 3.4 mg/dL (0.7-1.3)
[2017-01-08 22:00] LABS: GLUCOSE,RANDOM 393 mg/dL (74-106)
[2017-01-08] MEDS ORDERED: CHLORHEXIDINE GLUCONATE 4% CLEANSER FOR DECOLONIZATION TP SCH (22:00)
[2017-01-08] MEDS ORDERED: D5-NS + 40 MEQ KCL - 1,000 ML IV SCH (23:30)
[2017-01-08] MEDS ORDERED: D5-1/2NS+20 MEQ KCL - 1,000 ML IV SCH (23:45)
[2017-01-09] MEDS ORDERED: INSULIN REGULAR HUMAN 100 UNITS/ML *VIAL ONE (00:21)
[2017-01-09] MEDS ORDERED: DEXTROSE 10%-WATER - 1,000 ML IV SCH ×2 (04:15→05:11)
[2017-01-09 06:25] LABS: MCH 30.3 pg (25.7-33.7); MCHC 33.7 g/dl (32.0-35.9); MEAN CELL VOLUME 89.8 fl (80-96); MEAN PLT VOLUME 7.3 fl (7.5-11.1); PLATELET COUNT 219 K/MM3 (134-434); RDW 15.1 % (11.9-15.9); WHITE BLOOD COUNT 9.8 K/mm3 (4.0-10.0)
[2017-01-09 06:46] LABS: INR 1.01 (0.82-1.09); PROTHROMBIN TIME (PATIENT) 11.1 SEC (9.98-11.88)
[2017-01-09 06:49] LABS: ACTIVATED PTT 26.4 SECONDS (26.9-34.4)
[2017-01-09 06:51] LABS: ALBUMIN 2.6 g/dl (3.4-5.0); ANION GAP 10 (8-16); CALCIUM 8.1 mg/dL (8.5-10.1); CO2 20 mmol/L (21-32); GLUCOSE,RANDOM 59 mg/dL (74-106); MAGNESIUM 1.9 mg/dL (1.8-2.4); PHOSPHOROUS 2.4 mg/dL (2.5-4.9); SGOT/AST 15 U/L (15-37)
[2017-01-09 06:53] LABS: ALK PHOS 78 U/L (45-117); BILIRUBIN,TOTAL 0.3 mg/dL (0.2-1.0); CREATININE 3.3 mg/dL (0.7-1.3); SGPT/ALT 12 U/L (12-78); TOT PROT 6.6 g/dl (6.4-8.2)
[2017-01-09] MEDS: LEVOTHYROXINE 100 MCG, LEVOTHYROXINE 75 MCG PO SCH (07:06)
[2017-01-09] MEDS: CEFTRIAXONE 50 ML IVPB SCH (10:50)
[2017-01-09] MEDS: MUPIROCIN 2% TOPICAL OINTMENT FOR DECOLONIZATION NS SCH ×2 (10:58→22:00)
--- NOTE | 2017-01-09 11:13 | EKG ---
Test Reason : Blood Pressure : / mmHG Vent. Rate : 103 BPM Atrial Rate : 103 BPM P-R Int : 192 ms QRS Dur : 092 ms QT Int : 338 ms P-R-T Axes : 066 -15 052 degrees QTc Int : 442 ms POOR DATA QUALITY, INTERPRETATION MAY BE ADVERSELY AFFECTED SINUS TACHYCARDIA POSSIBLE LEFT ATRIAL ENLARGEMENT SEPTAL INFARCT (CITED ON OR BEFORE 07-JAN-2017) ABNORMAL ECG WHEN COMPARED WITH ECG OF 07-JAN-2017 14:10, VENT. RATE HAS INCREASED BY 41 BPM T WAVE AMPLITUDE HAS INCREASED IN ANTERIOR LEADS Confirmed by FRANCI OG MD ([id number]) on 01/09/2017 11:13:01 AM Referred By: Confirmed By:FRANCI OG MD
[2017-01-09 11:30] LABS: ARTERIAL BLOOD GAS BASE EXCESS -8.4 meq/l (-2-2); ARTERIAL BLOOD GAS HCO3 16.2 meq/L (22-26); ARTERIAL BLOOD GAS pH 7.33 (7.35-7.45)
--- NOTE | 2017-01-09 11:30 | PN ---
Progress Note (short form) - Note Progress Note: 66 yo male with multiple med problems admitted with dislodged r nephroistomy tube pt has a left stent with non obstructing stone s/p cystourethrthroscopy , laser lithotrypsy and turbt due to bladder tumor due to ureteral orifice ablation unable to canulate and needed a perc pt will need ir for reinserition of percutaneous nephrostomy on right will then f/u in office for his kidney stone disease w
[2017-01-09 11:32] LABS: ALLENS TEST POSITIVE; ART PUNCT SITE LEFT RADIAL; LPM/O2% 40%; MECH. VENT. YES; PT. ON O2? YES; TYPE OF O2 MEC.VENT
[2017-01-09 11:33] LABS: VENT RATE 14; VT/PRESS 500
--- NOTE | 2017-01-09 12:34 | PN ---
Physical Exam: SUBJECTIVE: Patient seen and examined. Intubated, sedated. Does not follow commands. Responds to physical stimuli. OBJECTIVE: Vital Signs Period Temp Pulse Resp BP Sys/Franklin Pulse Ox Last 24 Hr 97 F-98.9 F 55-86 14-59 80-104/44-58 100-100 GENERAL/NEURO: The patient is intubated, sedated. HEAD: Normal with no signs of trauma. EYES: PERRL LUNGS: Breath sounds equal, clear to auscultation bilaterally, no wheezes, no crackles HEART: Regular rate and rhythm, S1, S2 without murmur, rub or gallop. ABDOMEN: Soft, nontender, nondistended, normoactive bowel sounds, no guarding, no rebound EXTREMITIES: 2+ pulses, warm, well-perfused, no edema. Laboratory Results - last 24 hr 01/08/17 01/08/17 01/08/17 14:47 15:03 17:24 WBC RBC Hgb Hct MCV MCH MCHC RDW Plt Count MPV INR PTT (Actin FS) Puncture Site ABG pH ABG pCO2 at Pt Temp ABG pO2 at Pt Temp ABG HCO3 ABG O2 Sat (Measured) ABG O2 Content ABG Base Excess Oleksandr Test VBG pH POC VBG pCO2 POC VBG pO2 Mixed VBG HCO3 O2 Delivery Device Oxygen Flow Rate Vent Mode Vent Rate Mechanical Rate PEEP Pressure Support Vent Sodium 131 L Potassium 5.1 Chloride 99 Carbon Dioxide 11 L D Anion Gap 21 H BUN 53 H Creatinine 3.3 H Creat Clearance w eGFR POC Glucometer > 400 > 400 Random Glucose 694 H* Calcium 8.6 Phosphorus Magnesium Total Bilirubin AST ALT Alkaline Phosphatase Total Protein Albumin 01/08/17 01/08/17 01/08/17 18:26 18:30 18:50 WBC RBC Hgb Hct MCV MCH MCHC RDW Plt Count MPV INR PTT (Actin FS) Puncture Site ABG pH ABG pCO2 at Pt Temp ABG pO2 at Pt Temp ABG HCO3 ABG O2 Sat (Measured) ABG O2 Content ABG Base Excess Oleksandr Test VBG pH 7.20 L* POC VBG pCO2 37.4 L POC VBG pO2 29.2 Mixed VBG HCO3 14.1 L* O2 Delivery Device Oxygen Flow Rate Vent Mode Vent Rate Mechanical Rate PEEP Pressure Support Vent Sodium 134 L Potassium 4.5 Chloride 101 Carbon Dioxide 16 L D Anion Gap 17 H BUN 55 H Creatinine 3.4 H Creat Clearance w eGFR POC Glucometer > 400 Random Glucose 497 H* D Calcium 8.5 Phosphorus Magnesium Total Bilirubin AST ALT Alkaline Phosphatase Total Protein Albumin 01/08/17 01/08/17 01/08/17 20:02 21:10 21:12 WBC RBC Hgb Hct MCV MCH MCHC RDW Plt Count MPV INR PTT (Actin FS) Puncture Site ABG pH ABG pCO2 at Pt Temp ABG pO2 at Pt Temp ABG HCO3 ABG O2 Sat (Measured) ABG O2 Content ABG Base Excess Oleksandr Test VBG pH POC VBG pCO2 POC VBG pO2 Mixed VBG HCO3 O2 Delivery Device Oxygen Flow Rate Vent Mode Vent Rate Mechanical Rate PEEP Pressure Support Vent Sodium 136 Potassium 4.1 Chloride 105 Carbon Dioxide 16 L Anion Gap 15 BUN 55 H Creatinine 3.4 H Creat Clearance w eGFR POC Glucometer > 400 > 400 Random Glucose 393 H* D Calcium 8.3 L Phosphorus Magnesium Total Bilirubin AST ALT Alkaline Phosphatase Total Protein Albumin 01/09/17 01/09/17 01/09/17 03:56 05:03 05:20 WBC 9.8 D RBC 3.16 L Hgb 9.6 L D Hct 28.4 L D MCV 89.8 MCH 30.3 MCHC 33.7 RDW 15.1 Plt Count 219 D MPV 7.3 L INR PTT (Actin FS) Puncture Site ABG pH ABG pCO2 at Pt Temp ABG pO2 at Pt Temp ABG HCO3 ABG O2 Sat (Measured) ABG O2 Content ABG Base Excess Oleksandr Test VBG pH POC VBG pCO2 POC VBG pO2 Mixed VBG HCO3 O2 Delivery Device Oxygen Flow Rate Vent Mode Vent Rate Mechanical Rate PEEP Pressure Support Vent Sodium Potassium Chloride Carbon Dioxide Anion Gap BUN Creatinine Creat Clearance w eGFR POC Glucometer 71.15961 65.60863 Random Glucose Calcium Phosphorus Magnesium Total Bilirubin AST ALT Alkaline Phosphatase Total Protein Albumin 01/09/17 01/09/17 01/09/17 05:20 05:20 06:17 WBC RBC Hgb Hct MCV MCH MCHC RDW Plt Count MPV INR 1.01 PTT (Actin FS) 26.4 L Puncture Site ABG pH ABG pCO2 at Pt Temp ABG pO2 at Pt Temp ABG HCO3 ABG O2 Sat (Measured) ABG O2 Content ABG Base Excess Oleksandr Test VBG pH POC VBG pCO2 POC VBG pO2 Mixed VBG HCO3 O2 Delivery Device Oxygen Flow Rate Vent Mode Vent Rate Mechanical Rate PEEP Pressure Support Vent Sodium 137 Potassium 4.0 Chloride 107 Carbon Dioxide 20 L D Anion Gap 10 BUN 56 H Creatinine 3.3 H Creat Clearance w eGFR 18.85 POC Glucometer 81.11406 Random Glucose 59 L D Calcium 8.1 L Phosphorus 2.4 L D Magnesium 1.9 D Total Bilirubin 0.3 D AST 15 D ALT 12 Alkaline Phosphatase 78 D Total Protein 6.6 Albumin 2.6 L D 01/09/17 01/09/17 01/09/17 10:20 10:52 12:05 WBC RBC Hgb Hct MCV MCH MCHC RDW Plt Count MPV INR PTT (Actin FS) Puncture Site Left radial ABG pH 7.33 L ABG pCO2 at Pt Temp 31.3 L D ABG pO2 at Pt Temp 202.0 H* ABG HCO3 16.2 L ABG O2 Sat (Measured) 100.0 H* ABG O2 Content 14.1 L ABG Base Excess -8.4 L Oleksandr Test Positive VBG pH POC VBG pCO2 POC VBG pO2 Mixed VBG HCO3 O2 Delivery Device Mec.vent Oxygen Flow Rate 40% Vent Mode A/c Vent Rate 14 Mechanical Rate Yes PEEP 5.0 Pressure Support Vent 500 Sodium Potassium Chloride Carbon Dioxide Anion Gap BUN Creatinine Creat Clearance w eGFR POC Glucometer 97.10916 110.06529 Random Glucose Calcium Phosphorus Magnesium Total Bilirubin AST ALT Alkaline Phosphatase Total Protein Albumin Active Medications Generic Name Dose Route Start Last Admin Trade Name Freq PRN Reason Stop Dose Admin Chlorhexidine Gluconate 1 applic 01/08/17 22:00 01/08/17 21:22 Hibiclens For Decolonization - TP 1 applic HS CLARE Administration Clopidogrel Bisulfate 75 mg 01/08/17 10:00 01/08/17 10:51 Plavix - PO Not Given DAILY [facility] Heparin Sodium (Porcine) 5,000 unit 01/07/17 22:00 01/08/17 21:21 Heparin - SQ 5,000 unit BID CLARE Administration Insulin Human Regular 100 100 mls @ 5.53 mls/hr 01/08/17 08:15 01/09/17 05:10 units/ Sodium Chloride IVPB 0.01 units/kg/hr TITR CLARE Titration Protocol 0.1 UNITS/KG/HR Fentanyl 500 mcg/ Dextrose 100 mls @ 20 mls/hr 01/08/17 09:15 01/08/17 20:00 IJ 25 mcg/hr TITR CLARE Titration 100 MCG/HR Ceftriaxone Sodium 50 mls @ 100 mls/hr 01/08/17 11:45 01/09/17 10:50 Rocephin 1gm Ivpb (Pre-Docked) IVPB 100 mls/hr DAILY [facility] Administration Propofol 100 mls @ 3.32 mls/hr 01/08/17 14:15 01/08/17 23:33 Diprivan - IVPB 15 mcg/kg/min TITR CLARE Titration Protocol 10 MCG/KG/MIN Dextrose 1,000 mls @ 100 mls/hr 01/09/17 05:11 01/09/17 05:19 D10w - IV 100 mls/hr ASDIR CLARE Administration Levothyroxine Sodium 100 mcg/ 175 mcg 01/09/17 07:00 01/09/17 07:06 Levothyroxine Sodium 75 mcg PO Not Given DAILY@0700 CL[facility] Metoprolol Tartrate 12.5 mg 01/08/17 11:45 01/08/17 21:22 Lopressor - PO Not Given BID CLARE Mupirocin 1 applic 01/08/17 22:00 01/09/17 10:58 Bactroban Ointment (For Decolonization) - NS 01/13/17 21:59 1 applic BID CLARE Administration Ranitidine HCl 150 mg 01/07/17 17:15 01/08/17 10:50 Zantac - PO Not Given DAILY [facility] ASSESSMENT/PLAN 66 year-old male, [place] resident, with a PMH significant for HTN, dementia/ otherwise unspecified psych disorder, h/o CVA on Plavix, IDDM, h/o DVTs not on a /c, hypothyroidism, basal cell carcinoma s/p resection of facial lesions, CKD, neurogenic bladder, s/p left ureteral JJ stent and bilateral nephrostomy tubes ( both out at present), and paraplegia. Admitted for SHARMILA and displaced right nephrostomy tube. Hospital course complicated by severe DKA and acute respiratory failure. Newly diagnosed adenocarcinoma of prostate. DKA IDDM --AG closed; insulin drip off --Novolog sliding scale coverage Acute on chronic renal insufficiency --Cr 3.3, baseline ~2.0 --likely obstructive --urine lytes pending to calculate FeNa Prostate adenocarcinoma Bilateral ureteral obstruction secondary to prostate adenocarcinoma Right-sided hydronephrosis --01/09 CTAP: right hydronephrosis with ureter dilated to pelvic region, no stones; left renal stent, non-obstructing nephrolithiasis --discussed with urologist, Dr. Ruben Rivera; pathology just confirmed malignancy --son/HCP has given consent, will go to IR today for re-placement of right nephrostomy tube --urology following Gram negative UTI --afebrile, leukocytosis resolved --continue ceftriaxone (day #2) Fecal impaction --seen on CTAP --bowel regimen: colace liquid, bisocodyl supp h/o CVA --Plavix on hold h/o DVTs --CTAP confirms IVC filter placement Hypothyroidism --labs from 11/18/16 show TSH wnl --continue levothyroxine Dementia v. 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 Advised brother Dr. Reji Rodriguez, fresh work inspector at [employer] ( ) of 24 hour events. It appears son and uncle do not communicate. Patient continues to require ICU level care. FULL CODE. Visit type - Emergency Visit Emergency Visit: Yes ED Registration Date: 01/07/17 Care time: The patient presented to the Emergency Department on the above date and was hospitalized for further evaluation of their emergent condition. - New Patient This patient is new to me today: No - Critical Care Critical Care patient: Yes Total Critical Care Time (in minutes): 45 Critical Care Statement: The care of this patient involved high complexity decision making to prevent further life threatening deterioration of the patient 's condition and/or to evaluate & treat vital organ system(s) failure or risk of failure.
--- NOTE | 2017-01-09 12:45 | PN ---
Teaching Attending Note Name of Resident: Aj Lopez ATTENDING PHYSICIAN STATEMENT I saw and evaluated the patient. I reviewed the resident's note and discussed the case with the resident. I agree with the resident's findings and plan as documented. SUBJECTIVE: Pt seen and examined in the ICU. Remains intubated, awake on sedation. Anion gap closed, insulin gtt stopped. CT A/P done this AM showing right hydronephrosis. OBJECTIVE: Last Vital Signs Temp Pulse Resp BP Pulse Ox 98.9 F 74 16 101/44 100 01/09/17 08:47 01/09/17 10:00 01/09/17 12:00 01/09/17 10:00 01/09/17 08:44 Intake & Output 01/06/17 01/07/17 01/08/17 01/09/17 23:59 23:59 23:59 23:59 Intake Total 5200 684 Output Total 300 395 200 Balance -300 4805 484 Weight 122 lb 142 lb 3.2 oz Gen: intubated, sedated Heart: RRR Lung: decreased breath sounds at the bases Abd: soft, nontender Ext: no edema CBC, BMP 01/09/17 05:20 01/09/17 05:20 Active Medications Chlorhexidine Gluconate (Hibiclens For Decolonization -) 1 applic TP HS [facility] Last Admin: 01/08/17 21:22 Dose: 1 applic Clopidogrel Bisulfate (Plavix -) 75 mg PO DAILY [facility] Last Admin: 01/08/17 10:51 Dose: Not Given Heparin Sodium (Porcine) (Heparin -) 5,000 unit SQ BID [facility] Last Admin: 01/08/17 21:21 Dose: 5,000 unit Insulin Human Regular 100 (units/ Sodium Chloride) 100 mls @ 5.53 mls/hr IVPB TITR [facility]; 0.1 UNITS/KG/HR PRN Reason: Protocol Last Titration: 01/09/17 05:10 Dose: 0.01 units/kg/hr Fentanyl 500 mcg/ Dextrose 100 mls @ 20 mls/hr IJ TITR [facility] PRN Reason: 100 MCG/HR Last Titration: 01/08/17 20:00 Dose: 25 mcg/hr Ceftriaxone Sodium (Rocephin 1gm Ivpb (Pre-Docked)) 50 mls @ 100 mls/hr IVPB DAILY [facility] Last Admin: 01/09/17 10:50 Dose: 100 mls/hr Propofol (Diprivan -) 100 mls @ 3.32 mls/hr IVPB TITR [facility]; 10 MCG/KG/MIN PRN Reason: Protocol Last Titration: 01/08/17 23:33 Dose: 15 mcg/kg/min Dextrose (D10w -) 1,000 mls @ 100 mls/hr IV ASDIR [facility] Last Admin: 01/09/17 05:19 Dose: 100 mls/hr Levothyroxine Sodium 100 mcg/ (Levothyroxine Sodium 75 mcg) 175 mcg PO DAILY@ 0700 [facility] Last Admin: 01/09/17 07:06 Dose: Not Given Metoprolol Tartrate (Lopressor -) 12.5 mg PO BID [facility] Last Admin: 01/08/17 21:22 Dose: Not Given Mupirocin (Bactroban Ointment (For Decolonization) -) 1 applic NS BID [facility] Stop: 01/13/17 21:59 Last Admin: 01/09/17 10:58 Dose: 1 applic Ranitidine HCl (Zantac -) 150 mg PO DAILY [facility] Last Admin: 01/08/17 10:50 Dose: Not Given ASSESSMENT AND PLAN: Acute Respiratory Failure Diabetic Ketoacidosis Metabolic Acidosis Hyperkalemia Acute Kidney Injury UTI Hypothyroidism Right Hydronephrosis - will need right percutaneous nephrostomy - monitor BMP, BGM - continue IVF - monitor urine output, creatinine - sedate for vent synchrony - continue antibiotics - f/u cultures - hold sedation to assess mental status - start spontaneous breathing trials when mental status improved - enteral feeds if unable to extubate - DVT/GI prophylaxis - continue ICU monitoring critical care time spent in reviewing chart, evaluating patient and formulating plan 40 min
[2017-01-09] MEDS ORDERED: DOCUSATE NA 100 MG/10 ML UNIT-DOSE CUPS PO PRN (12:46)
[2017-01-09] MEDS ORDERED: BISACODYL 10 MG SUPP.RECT RC PRN (12:47)
--- NOTE | 2017-01-09 14:45 | PN ---
Progress Note, Physician History of Present Illness: Pt seen and examined at bedside. He remains in the ICU. Pt remains intubated. - Current Medication List Current Medications: Active Medications Bisacodyl (Dulcolax Suppository -) 10 mg RC PRN PRN PRN Reason: CONSTIPATION Chlorhexidine Gluconate (Hibiclens For Decolonization -) 1 applic TP HS [facility] Clopidogrel Bisulfate (Plavix -) 75 mg PO DAILY [facility] Last Admin: 01/08/17 10:51 Dose: Not Given Docusate Sodium (Colace Liquid -) 300 mg PO DAILY PRN PRN Reason: CONSTIPATION Heparin Sodium (Porcine) (Heparin -) 5,000 unit SQ BID [facility] Last Admin: 01/08/17 21:21 Dose: 5,000 unit Insulin Human Regular 100 (units/ Sodium Chloride) 100 mls @ 5.53 mls/hr IVPB TITR [facility]; 0.1 UNITS/KG/HR PRN Reason: Protocol Last Titration: 01/09/17 05:10 Dose: 0.01 units/kg/hr Fentanyl 500 mcg/ Dextrose 100 mls @ 20 mls/hr IJ TITR [facility] PRN Reason: 100 MCG/HR Last Titration: 01/08/17 20:00 Dose: 25 mcg/hr Ceftriaxone Sodium (Rocephin 1gm Ivpb (Pre-Docked)) 50 mls @ 100 mls/hr IVPB DAILY [facility] Last Admin: 01/09/17 10:50 Dose: 100 mls/hr Propofol (Diprivan -) 100 mls @ 3.32 mls/hr IVPB TITR [facility]; 10 MCG/KG/MIN PRN Reason: Protocol Last Titration: 01/08/17 23:33 Dose: 15 mcg/kg/min Dextrose (D10w -) 1,000 mls @ 100 mls/hr IV ASDIR [facility] Last Admin: 01/09/17 05:19 Dose: 100 mls/hr Levothyroxine Sodium 100 mcg/ (Levothyroxine Sodium 75 mcg) 175 mcg PO DAILY@ 0700 [facility] Last Admin: 01/09/17 07:06 Dose: Not Given Metoprolol Tartrate (Lopressor -) 12.5 mg PO BID [facility] Last Admin: 01/08/17 21:22 Dose: Not Given Mupirocin (Bactroban Ointment (For Decolonization) -) 1 applic NS BID [facility] Stop: 01/14/17 21:59 Potassium Phos/Sodium Phos (Phos-Nak Packet -) 1 packet PO BID [facility] Ranitidine HCl (Zantac -) 150 mg PO DAILY [facility] Last Admin: 01/08/17 10:50 Dose: Not Given - Objective Vital Signs: Vital Signs Temperature 98.9 F 01/09/17 08:47 Pulse Rate 74 01/09/17 10:00 Respiratory Rate 16 01/09/17 12:00 Blood Pressure 101/44 01/09/17 10:00 O2 Sat by Pulse Oximetry (%) 100 01/09/17 08:44 Constitutional: Yes: Calm Eyes: Yes: Conjunctiva Clear Cardiovascular: Yes: S1, S2 Respiratory: Yes: Mechanically Ventilated Gastrointestinal: Yes: Soft Genitourinary: Yes: Wolfe Present Musculoskeletal: Yes: Muscle Weakness Edema: No Neurological: Yes: Lethargy Labs: CBC, BMP 01/09/17 05:20 01/09/17 05:20 INR, PTT INR 1.01 (0.82-1.09) 01/09/17 05:20 - ....Imaging Chest X-ray: Report Reviewed Cat Scan: Report Reviewed Problem List - Problems (1) SAMIR (acute kidney injury) Code(s): N17.9 - ACUTE KIDNEY FAILURE, UNSPECIFIED (2) Diabetic ketoacidosis with coma Code(s): E13.11 - OTH DIABETES MELLITUS WITH KETOACIDOSIS WITH COMA (3) Nephrostomy complication Code(s): N99.528 - OTHER COMP OF INCONTINENT EXTERNAL STOMA OF URINARY TRACT Assessment/Plan Current Medications Generic Name Dose Route Start Last Admin Trade Name Zeb PRN Reason Stop Dose Admin Bisacodyl 10 mg 01/09/17 12:47 Dulcolax Suppository - RC PRN PRN CONSTIPATION Chlorhexidine Gluconate 1 applic 01/09/17 22:00 Hibiclens For Decolonization - TP HS [facility] Clopidogrel Bisulfate 75 mg 01/08/17 10:00 01/08/17 10:51 Plavix - PO Not Given DAILY [facility] Docusate Sodium 300 mg 01/09/17 12:46 Colace Liquid - PO DAILY PRN CONSTIPATION Heparin Sodium (Porcine) 5,000 unit 01/07/17 22:00 01/08/17 21:21 Heparin - SQ 5,000 unit BID [facility] Administration Insulin Human Regular 100 100 mls @ 5.53 mls/hr 01/08/17 08:15 01/09/17 05:10 units/ Sodium Chloride IVPB 0.01 units/kg/hr TITR [facility] Titration Protocol 0.1 UNITS/KG/HR Fentanyl 500 mcg/ Dextrose 100 mls @ 20 mls/hr 01/08/17 09:15 01/08/17 20:00 IJ 25 mcg/hr TITR [facility] Titration 100 MCG/HR Ceftriaxone Sodium 50 mls @ 100 mls/hr 01/08/17 11:45 01/09/17 10:50 Rocephin 1gm Ivpb (Pre-Docked) IVPB 100 mls/hr DAILY [facility] Administration Propofol 100 mls @ 3.32 mls/hr 01/08/17 14:15 01/08/17 23:33 Diprivan - IVPB 15 mcg/kg/min TITR [facility] Titration Protocol 10 MCG/KG/MIN Dextrose 1,000 mls @ 100 mls/hr 01/09/17 05:11 01/09/17 05:19 D10w - IV 100 mls/hr ASDIR [facility] Administration Levothyroxine Sodium 100 mcg/ 175 mcg 01/09/17 07:00 01/09/17 07:06 Levothyroxine Sodium 75 mcg PO Not Given DAILY@0700 [facility] Metoprolol Tartrate 12.5 mg 01/08/17 11:45 01/08/17 21:22 Lopressor - PO Not Given BID [facility] Mupirocin 1 applic 01/09/17 22:00 Bactroban Ointment (For Decolonization) - NS 01/14/17 21:59 BID [facility] Potassium Phos/Sodium Phos 1 packet 01/09/17 13:45 Phos-Nak Packet - PO BID [facility] Ranitidine HCl 150 mg 01/07/17 17:15 01/08/17 10:50 Zantac - PO Not Given DAILY [facility] Impression 1. Samir 2. DKA 3. hyperkalemia 4. ckd with baseline chaser apprentice 2.2 5. obstructive uropathy with nephrostomy tube dislodged 6. dementia 7. developemental delay 8. hypothyroidism 9. DM 10. acidosis 11. respiratory failure - acute requiring intubation 12. prostate cancer 13. s/p IVC filter Plan - renal function is starting to stabilize - can start to decrease rate of fluids - IR for nephrostomy - urology follow up - monitor blood sugar - weaning per pulmonary - monitor urine output - send urine lytes and chaser apprentice to calc fena - renal ultrasound reviewed - discussed with ICU team - will follow pt Dr Ruelas
--- NOTE | 2017-01-09 15:02 | PN ---
Progress Note, Physician Chief Complaint: DKA History of Present Illness: Patient intubated and sedated. Anion gap is closed and Insulin drip d/cd. Will transition to long acting insulin. Patient is for replacement of his nephrostomy tube by IR today. - Current Medication List Current Medications: Active Medications Bisacodyl (Dulcolax Suppository -) 10 mg RC PRN PRN PRN Reason: CONSTIPATION Chlorhexidine Gluconate (Hibiclens For Decolonization -) 1 applic TP HS [facility] Clopidogrel Bisulfate (Plavix -) 75 mg PO DAILY [facility] Last Admin: 01/08/17 10:51 Dose: Not Given Docusate Sodium (Colace Liquid -) 300 mg PO DAILY PRN PRN Reason: CONSTIPATION Heparin Sodium (Porcine) (Heparin -) 5,000 unit SQ BID [facility] Last Admin: 01/08/17 21:21 Dose: 5,000 unit Insulin Human Regular 100 (units/ Sodium Chloride) 100 mls @ 5.53 mls/hr IVPB TITR [facility]; 0.1 UNITS/KG/HR PRN Reason: Protocol Last Titration: 01/09/17 05:10 Dose: 0.01 units/kg/hr Fentanyl 500 mcg/ Dextrose 100 mls @ 20 mls/hr IJ TITR [facility] PRN Reason: 100 MCG/HR Last Titration: 01/08/17 20:00 Dose: 25 mcg/hr Ceftriaxone Sodium (Rocephin 1gm Ivpb (Pre-Docked)) 50 mls @ 100 mls/hr IVPB DAILY [facility] Last Admin: 01/09/17 10:50 Dose: 100 mls/hr Propofol (Diprivan -) 100 mls @ 3.32 mls/hr IVPB TITR [facility]; 10 MCG/KG/MIN PRN Reason: Protocol Last Titration: 01/08/17 23:33 Dose: 15 mcg/kg/min Dextrose (D10w -) 1,000 mls @ 100 mls/hr IV ASDIR [facility] Last Admin: 01/09/17 05:19 Dose: 100 mls/hr Levothyroxine Sodium 100 mcg/ (Levothyroxine Sodium 75 mcg) 175 mcg PO DAILY@ 0700 [facility] Last Admin: 01/09/17 07:06 Dose: Not Given Metoprolol Tartrate (Lopressor -) 12.5 mg PO BID [facility] Last Admin: 01/08/17 21:22 Dose: Not Given Mupirocin (Bactroban Ointment (For Decolonization) -) 1 applic NS BID [facility] Stop: 01/14/17 21:59 Potassium Phos/Sodium Phos (Phos-Nak Packet -) 1 packet PO BID [facility] Ranitidine HCl (Zantac -) 150 mg PO DAILY [facility] Last Admin: 01/08/17 10:50 Dose: Not Given - Objective Vital Signs: Vital Signs Temperature 98.9 F 01/09/17 08:47 Pulse Rate 88 01/09/17 14:46 Respiratory Rate 14 01/09/17 14:46 Blood Pressure 146/55 01/09/17 14:46 O2 Sat by Pulse Oximetry (%) 98 01/09/17 14:46 Constitutional: Yes: No Distress HENT: Yes: Atraumatic, Normocephalic Neck: Yes: Supple, Trachea Midline Cardiovascular: Yes: Regular Rate and Rhythm, S1, S2. No: JVD, Gallop, Murmur, Rub Respiratory: Yes: Regular, Intubated, Mechanically Ventilated, Other (decreased air entry at bases) Gastrointestinal: Yes: Normal Bowel Sounds, Soft, Other (no grimacing on palpation of abdomen). No: Distention Neurological: Yes: Other (unable to perform due to clinical status) Additional Findings/Remarks: LINES/Tubes: -ETT 8.0 at 22cm; Inserted 01/08 -Wolfe inserted 01/08 -Right hand 22g inserted 01/08 -Left arm 20g inserted 01/08 -nephrostomy tube inserted 01/09 Labs: CBC, BMP 01/09/17 05:20 01/09/17 05:20 INR, PTT INR 1.01 (0.82-1.09) 01/09/17 05:20 Assessment/Plan 66M with transferred to ICU in DKA. Endocrine: -diabetic ketoacidosis likely 2/2 insulin noncompliance and superimposed UTI -insulin gtt d/cd this AM -D10 W; patient was hypoglycemic overnight -ABG improved today -will begin long acting insulin regimen -ABG in AM Renal: -sepsis 2/2 complicated UTI w/ renal abscess 2/2 urinary retention 2/2 chronic neurogenic bladder -trend creatinines; 3.3 today (baseline around 2) -renally dose meds -consult ID -UCx growing non lactose fermenting G- bacilli -f/u BCx -patient went for nephrostomy tube placement today; now draining purulent fluid Pulmonary: -Intubated and sedated -vent settings 30%O2/ PEEP 5 /rate 14 FEN: -D5NS@100 -hyperkalemia resolved today; will continue to monitor. -Phosphorus low; repleted -NPO for now PPx: HSQ/SCDs Zantac PT consult
[2017-01-09] MEDS: NAPH,MB-DB/K PH,MBDB POWDER PACKET PO SCH ×2 (15:25→22:00)
[2017-01-09] MEDS: PROPOFOL 100 ML IVPB SCH (15:27)
[2017-01-09] MEDS ORDERED: DEXTROSE 5%-NORMAL SALINE 1,000 ML IV SCH ×2 (17:30→22:01)
[2017-01-09] MEDS ORDERED: PROPOFOL 100 ML ONE (17:53)
[2017-01-09] MEDS: DEXTROSE 5%-NORMAL SALINE 1,000 ML IV SCH (21:00)
[2017-01-09] MEDS ORDERED: PT OWN MED DRAWER 7, Y5N ONE (21:25)
[2017-01-09] MEDS ORDERED: SODIUM PHOSPHATE - 20 MM in SODIUM CHLORIDE 250 ML IVPB ONE (21:42)
[2017-01-09] MEDS ORDERED: SODIUM PHOSPHATE - 0 MM in SODIUM CHLORIDE 250 ML IVPB ONE (21:42)
[2017-01-09] MEDS: METOPROLOL TARTRATE 50 MG TABLET (FP) PO SCH (22:00)
[2017-01-09] MEDS: CHLORHEXIDINE GLUCONATE 4% CLEANSER FOR DECOLONIZATION TP SCH (22:00)
[2017-01-09] MEDS: INSULIN SLIDING SCALE (NOVOLOG) 1 VIAL SQ SCH (22:00)
[2017-01-09] MEDS: HEPARIN NA (PORCINE) 5,000 UNITS/ML 1ML VIAL SQ SCH (22:00)
[2017-01-09] MEDS ORDERED: INSULIN (NOVOLOG) ASPART 100 UNITS/ML 10ML VIAL ONE (22:01)
[2017-01-10] MEDS: FAMOTIDINE 20 MG/50 ML IVPB 50 ML IVPB SCH ×3 (01:59→21:17)
[2017-01-10 06:16] LABS: MCH 30.7 pg (25.7-33.7); MCHC 34.2 g/dl (32.0-35.9); MEAN CELL VOLUME 89.6 fl (80-96); MEAN PLT VOLUME 7.5 fl (7.5-11.1); PLATELET COUNT 179 K/MM3 (134-434); RDW 15.6 % (11.9-15.9); WHITE BLOOD COUNT 4.1 K/mm3 (4.0-10.0)
[2017-01-10 06:48] LABS: ALBUMIN 2.4 g/dl (3.4-5.0); ANION GAP 8 (8-16); BILIRUBIN,TOTAL 0.3 mg/dL (0.2-1.0); CALCIUM 8.3 mg/dL (8.5-10.1); CO2 20 mmol/L (21-32); CREATININE 2.7 mg/dL (0.7-1.3); GLUCOSE,RANDOM 165 mg/dL (74-106); MAGNESIUM 1.8 mg/dL (1.8-2.4); PHOSPHOROUS 2.6 mg/dL (2.5-4.9); SGOT/AST 21 U/L (15-37); SGPT/ALT 21 U/L (12-78); TOT PROT 6.4 g/dl (6.4-8.2)
[2017-01-10 06:49] LABS: ALK PHOS 92 U/L (45-117)
[2017-01-10] MEDS ORDERED: MAGNESIUM SULF 50% (8.12 MEQ/2 ML-1 GM VIAL) IVPB ONE (06:59)
[2017-01-10] MEDS: LEVOTHYROXINE 100 MCG, LEVOTHYROXINE 75 MCG PO SCH (07:00)
[2017-01-10 07:41] LABS: ALLENS TEST POSITIVE; ARTERIAL BLOOD GAS BASE EXCESS -8.4 meq/l (-2-2); ARTERIAL BLOOD GAS HCO3 16.5 meq/L (22-26); ARTERIAL BLOOD GAS pH 7.32 (7.35-7.45)
[2017-01-10 07:42] LABS: ART PUNCT SITE RIGHT RADIAL; LPM/O2% 30%; MECH. VENT. ESPRIT; PT. ON O2? YES; TYPE OF O2 MEC.VENT; VENT RATE 14; VT/PRESS 500
[2017-01-10] MEDS: DEXTROSE 5%-NORMAL SALINE 1,000 ML IV SCH (08:46)
[2017-01-10] MEDS ORDERED: HEMOQUE TEST 1 EACH EACH ONE (08:48)
[2017-01-10] MEDS: INSULIN SLIDING SCALE (NOVOLOG) 1 VIAL SQ SCH ×4 (08:54→23:04)
[2017-01-10 09:19] LABS: URINE CREATININE 72.6 mg/dL (20-370)
[2017-01-10] MEDS: HEPARIN NA (PORCINE) 5,000 UNITS/ML 1ML VIAL SQ SCH ×3 (10:01→22:00)
[2017-01-10] MEDS: CEFTRIAXONE 50 ML IVPB SCH (10:02)
[2017-01-10] MEDS: METOPROLOL TARTRATE 50 MG TABLET (FP) PO SCH ×3 (11:16→22:47)
[2017-01-10] MEDS: CLOPIDOGREL BISULFATE 75 MG TABLET (FP) PO SCH (11:17)
[2017-01-10] MEDS: MUPIROCIN 2% TOPICAL OINTMENT FOR DECOLONIZATION NS SCH ×2 (11:19→21:16)
--- NOTE | 2017-01-10 11:28 | PN ---
Teaching Attending Note Name of Resident: Aj Lopez ATTENDING PHYSICIAN STATEMENT I saw and evaluated the patient. I reviewed the resident's note and discussed the case with the resident. I agree with the resident's findings and plan as documented. SUBJECTIVE: Pt seen and examined in the ICU. Remains intubated, awake off sedation. Tolerating CPAP/PS trials. s/p right nephrostomy drainage with purulent drainage. OBJECTIVE: Last Vital Signs Temp Pulse Resp BP Pulse Ox 99.0 F 84 19 143/60 100 01/10/17 08:00 01/10/17 10:31 01/10/17 09:45 01/10/17 08:00 01/10/17 10:31 Intake & Output 01/07/17 01/08/17 01/09/17 01/10/17 23:59 23:59 23:59 23:59 Intake Total 5200 1734 1601 Output Total 300 240 088 3167 Balance -300 4805 769 401 Weight 122 lb 142 lb 3.2 oz 139 lb 8.842 oz Gen: intubated, awake Heart: RRR Lung: decreased breath sounds at the bases Abd: soft, nontender Ext: trace edema CBC, BMP 01/10/17 05:20 01/10/17 05:20 Active Medications Bisacodyl (Dulcolax Suppository -) 10 mg RC PRN PRN PRN Reason: CONSTIPATION Last Admin: 01/10/17 09:09 Dose: 10 mg Chlorhexidine Gluconate (Hibiclens For Decolonization -) 1 applic TP HS [facility] Last Admin: 01/09/17 22:00 Dose: 1 applic Clopidogrel Bisulfate (Plavix -) 75 mg PO DAILY [facility] Last Admin: 01/10/17 11:17 Dose: Not Given Docusate Sodium (Colace Liquid -) 300 mg PO DAILY PRN PRN Reason: CONSTIPATION Heparin Sodium (Porcine) (Heparin -) 5,000 unit SQ BID [facility] Last Admin: 01/10/17 10:01 Dose: 5,000 unit Fentanyl 500 mcg/ Dextrose 100 mls @ 20 mls/hr IJ TITR [facility] PRN Reason: 100 MCG/HR Last Titration: 01/08/17 20:00 Dose: 25 mcg/hr Ceftriaxone Sodium (Rocephin 1gm Ivpb (Pre-Docked)) 50 mls @ 100 mls/hr IVPB DAILY [facility] Last Admin: 01/10/17 10:02 Dose: 100 mls/hr Propofol (Diprivan -) 100 mls @ 3.32 mls/hr IVPB TITR [facility]; 10 MCG/KG/MIN PRN Reason: Protocol Last Admin: 01/09/17 15:27 Dose: 10 mls/hr Sodium Phosphate / Sodium (Chloride) 250 mls @ 62.5 mls/hr IVPB ONCE ONE Stop: 01/10/17 01:41 Famotidine/Sodium Chloride (Pepcid 20 Mg Premixed Ivpb -) 50 mls @ 100 mls/hr IVPB BID [facility] Last Admin: 01/10/17 09:19 Dose: 100 mls/hr Dextrose/Sodium Chloride (D5-Ns -) 1,000 mls @ 100 mls/hr IV ASDIR [facility] Last Admin: 01/10/17 08:46 Dose: 100 mls/hr Insulin Aspart (Novolog Vial Sliding Scale -) 1 vial SQ ACHS [facility] PRN Reason: Protocol Last Admin: 01/10/17 08:54 Dose: 6 units Levothyroxine Sodium 100 mcg/ (Levothyroxine Sodium 75 mcg) 175 mcg PO DAILY@ 0700 [facility] Last Admin: 01/09/17 07:06 Dose: Not Given Metoprolol Tartrate (Lopressor -) 12.5 mg PO BID [facility] Last Admin: 01/10/17 11:16 Dose: Not Given Mupirocin (Bactroban Ointment (For Decolonization) -) 1 applic NS BID [facility] Stop: 01/14/17 21:59 Last Admin: 01/10/17 11:19 Dose: 1 applic Potassium Phos/Sodium Phos (Phos-Nak Packet -) 1 packet PO BID [facility] Last Admin: 01/09/17 22:00 Dose: Not Given ASSESSMENT AND PLAN: Acute Respiratory Failure Diabetic Ketoacidosis Metabolic Acidosis Hyperkalemia Acute Kidney Injury UTI Hypothyroidism Right Hydronephrosis s/p Right Percutaneous Nephrostomy - continue IVF, decrease rate - monitor urine output, creatinine - continue antibiotics - f/u cultures - wean to extubate - DVT/GI prophylaxis - continue ICU monitoring critical care time spent in reviewing chart, evaluating patient and formulating plan 35 min
[2017-01-10] MEDS ORDERED: PT OWN MED DRAWER 7, Y5N ONE ×2 (11:38→19:47)
--- NOTE | 2017-01-10 12:51 | PN ---
Progress Note, Physician Chief Complaint: DKA History of Present Illness: Patient intubated and sedated. Anion gap remains closed. Will transition to long acting insulin. Patient tolerated replacement of his nephrostomy tube with purulent drainage. - Current Medication List Current Medications: Active Medications Bisacodyl (Dulcolax Suppository -) 10 mg RC PRN PRN PRN Reason: CONSTIPATION Last Admin: 01/10/17 09:09 Dose: 10 mg Chlorhexidine Gluconate (Hibiclens For Decolonization -) 1 applic TP HS [facility] Last Admin: 01/09/17 22:00 Dose: 1 applic Clopidogrel Bisulfate (Plavix -) 75 mg PO DAILY [facility] Last Admin: 01/10/17 11:17 Dose: Not Given Docusate Sodium (Colace Liquid -) 300 mg PO DAILY PRN PRN Reason: CONSTIPATION Heparin Sodium (Porcine) (Heparin -) 5,000 unit SQ BID [facility] Last Admin: 01/10/17 10:01 Dose: 5,000 unit Fentanyl 500 mcg/ Dextrose 100 mls @ 20 mls/hr IJ TITR [facility] PRN Reason: 100 MCG/HR Last Titration: 01/08/17 20:00 Dose: 25 mcg/hr Ceftriaxone Sodium (Rocephin 1gm Ivpb (Pre-Docked)) 50 mls @ 100 mls/hr IVPB DAILY [facility] Last Admin: 01/10/17 10:02 Dose: 100 mls/hr Propofol (Diprivan -) 100 mls @ 3.32 mls/hr IVPB TITR [facility]; 10 MCG/KG/MIN PRN Reason: Protocol Last Admin: 01/09/17 15:27 Dose: 10 mls/hr Famotidine/Sodium Chloride (Pepcid 20 Mg Premixed Ivpb -) 50 mls @ 100 mls/hr IVPB BID [facility] Last Admin: 01/10/17 09:19 Dose: 100 mls/hr Sodium Chloride (Normal Saline -) 1,000 mls @ 75 mls/hr IV ASDIR [facility] Sodium Phosphate 20 mm/ Sodium (Chloride) 256.6667 mls @ 62.5 mls/hr IVPB ONCE ONE Stop: 01/10/17 01:48 Insulin Aspart (Novolog Vial Sliding Scale -) 1 vial SQ ACHS [facility] PRN Reason: Protocol Last Admin: 01/10/17 08:54 Dose: 6 units Levothyroxine Sodium 100 mcg/ (Levothyroxine Sodium 75 mcg) 175 mcg PO DAILY@ 0700 [facility] Last Admin: 01/09/17 07:06 Dose: Not Given Metoprolol Tartrate (Lopressor -) 12.5 mg PO BID [facility] Last Admin: 01/10/17 11:16 Dose: Not Given Mupirocin (Bactroban Ointment (For Decolonization) -) 1 applic NS BID [facility] Stop: 01/14/17 21:59 Last Admin: 01/10/17 11:19 Dose: 1 applic - Objective Vital Signs: Vital Signs Temperature 100.0 F H 01/10/17 12:00 Pulse Rate 80 01/10/17 12:00 Respiratory Rate 22 01/10/17 12:00 Blood Pressure 137/71 01/10/17 12:00 O2 Sat by Pulse Oximetry (%) 100 01/10/17 10:31 Constitutional: Yes: Anxious HENT: Yes: Atraumatic, Normocephalic Neck: Yes: Supple, Trachea Midline Cardiovascular: Yes: Regular Rate and Rhythm, S1, S2. No: JVD, Gallop, Murmur, Rub Respiratory: Yes: Regular, Intubated, Mechanically Ventilated, Other (decreased air entry at the bases) Gastrointestinal: Yes: Normal Bowel Sounds, Soft. No: Tenderness, Tenderness, Rebound Neurological: Yes: Alert, Other (difficult to assess due to patient's clinical status) Labs: CBC, BMP 01/10/17 05:20 01/10/17 05:20 INR, PTT INR 1.01 (0.82-1.09) 01/09/17 05:20 Assessment/Plan 66M with transferred to ICU in DKA. Endocrine: -diabetic ketoacidosis likely 2/2 insulin noncompliance and superimposed UTI -IVF -ISS -will begin long acting insulin regimen after 24h insulin requirement is assessed Renal: -sepsis 2/2 complicated UTI w/ renal abscess 2/2 urinary retention 2/2 chronic neurogenic bladder -creatinine trending down from 3.3 to 2.7 today -UCx positive for ESBL -Bcx negative to date -nephrostomy tube now draining clear fluid Pulmonary: -extubate to NM today FEN: -NS@75 -monitor lytes -Phosphorus low; repleted -NPO for now PPx: -Heparin SQ 5kU TID for dvt pptx -Pepcid 20mg IV -PT consult Lines/Tubes: -right arm 22g IV 01/07 -left arm 22g IV 01/07 -Right AC 20g 01/08 -mcbride inserted 01/08 Dispo: -continue to monitor in ICU -critical care time 35
[2017-01-10] MEDS: SODIUM CHLORIDE 1,000 ML IV SCH (12:54)
[2017-01-10] MEDS ORDERED: MAGNESIUM SULF 50% (8.12 MEQ/2 ML-1 GM VIAL) ONE (13:01)
[2017-01-10] MEDS: NAPH,MB-DB/K PH,MBDB POWDER PACKET PO SCH (13:13)
--- NOTE | 2017-01-10 14:25 | PN ---
Physical Exam: SUBJECTIVE: Patient seen and examined OBJECTIVE: Vital Signs Period Temp Pulse Resp BP Sys/[place]lin Pulse Ox Last 24 Hr 97.6 F-100.0 F 1-88 12-22 94-159/48-71 98-100 GENERAL/NEURO: The patient is extubated. HEAD: Normal with no signs of trauma. EYES: PERRL LUNGS: Breath sounds equal, clear to auscultation bilaterally, no wheezes, no crackles HEART: Regular rate and rhythm, S1, S2 without murmur, rub or gallop. ABDOMEN: Soft, nontender, nondistended, normoactive bowel sounds, no guarding, no rebound EXTREMITIES: 2+ pulses, warm, well-perfused, no edema. Laboratory Results - last 24 hr 01/09/17 01/09/17 01/09/17 08:35 08:35 16:06 WBC RBC Hgb Hct MCV MCH MCHC RDW Plt Count MPV Puncture Site ABG pH ABG pCO2 at Pt Temp ABG pO2 at Pt Temp ABG HCO3 ABG O2 Sat (Measured) ABG O2 Content ABG Base Excess Oleksandr Test O2 Delivery Device Oxygen Flow Rate Vent Mode Vent Rate Mechanical Rate PEEP Pressure Support Vent Sodium Potassium Chloride Carbon Dioxide Anion Gap BUN Creatinine Creat Clearance w eGFR POC Glucometer 184.74704 Random Glucose Calcium Phosphorus Magnesium Total Bilirubin AST ALT Alkaline Phosphatase Total Protein Albumin U Random Total Protein 144 H Ur Random Sodium Cancelled 27 Ur Random Potassium Cancelled 21.0 Ur Random Chloride Cancelled 28 Urine Creatinine 72.6 01/09/17 01/10/17 01/10/17 21:50 00:53 03:21 WBC RBC Hgb Hct MCV MCH MCHC RDW Plt Count MPV Puncture Site ABG pH ABG pCO2 at Pt Temp ABG pO2 at Pt Temp ABG HCO3 ABG O2 Sat (Measured) ABG O2 Content ABG Base Excess Oleksandr Test O2 Delivery Device Oxygen Flow Rate Vent Mode Vent Rate Mechanical Rate PEEP Pressure Support Vent Sodium Potassium Chloride Carbon Dioxide Anion Gap BUN Creatinine Creat Clearance w eGFR POC Glucometer 276.03614 193.72618 103.09151 Random Glucose Calcium Phosphorus Magnesium Total Bilirubin AST ALT Alkaline Phosphatase Total Protein Albumin U Random Total Protein Ur Random Sodium Ur Random Potassium Ur Random Chloride Urine Creatinine 01/10/17 01/10/17 01/10/17 05:20 05:20 07:35 WBC 4.1 D RBC 2.90 L Hgb 8.9 L Hct 26.0 L MCV 89.6 MCH 30.7 MCHC 34.2 RDW 15.6 Plt Count 179 MPV 7.5 Puncture Site Right radial ABG pH 7.32 L ABG pCO2 at Pt Temp 33.0 L ABG pO2 at Pt Temp 172.0 H* ABG HCO3 16.5 L ABG O2 Sat (Measured) 100.0 H* ABG O2 Content 11.1 L ABG Base Excess -8.4 L Oleksandr Test Positive O2 Delivery Device Mec.vent Oxygen Flow Rate 30% Vent Mode A/c Vent Rate 14 Mechanical Rate Esprit PEEP 5.0 Pressure Support Vent 500 Sodium 137 Potassium 4.0 Chloride 109 H Carbon Dioxide 20 L Anion Gap 8 BUN 47 H Creatinine 2.7 H Creat Clearance w eGFR 23.76 POC Glucometer Random Glucose 165 H D Calcium 8.3 L Phosphorus 2.6 Magnesium 1.8 Total Bilirubin 0.3 AST 21 D ALT 21 D Alkaline Phosphatase 92 Total Protein 6.4 Albumin 2.4 L U Random Total Protein Ur Random Sodium Ur Random Potassium Ur Random Chloride Urine Creatinine 01/10/17 01/10/17 08:52 12:40 WBC RBC Hgb Hct MCV MCH MCHC RDW Plt Count MPV Puncture Site ABG pH ABG pCO2 at Pt Temp ABG pO2 at Pt Temp ABG HCO3 ABG O2 Sat (Measured) ABG O2 Content ABG Base Excess Oleksandr Test O2 Delivery Device Oxygen Flow Rate Vent Mode Vent Rate Mechanical Rate PEEP Pressure Support Vent Sodium Potassium Chloride Carbon Dioxide Anion Gap BUN Creatinine Creat Clearance w eGFR POC Glucometer 274.85746 150.24826 Random Glucose Calcium Phosphorus Magnesium Total Bilirubin AST ALT Alkaline Phosphatase Total Protein Albumin U Random Total Protein Ur Random Sodium Ur Random Potassium Ur Random Chloride Urine Creatinine Active Medications Generic Name Dose Route Start Last Admin Trade Name Freq PRN Reason Stop Dose Admin Bisacodyl 10 mg 01/09/17 12:47 01/10/17 09:09 Dulcolax Suppository - RC 10 mg PRN PRN Administration CONSTIPATION Chlorhexidine Gluconate 1 applic 01/09/17 22:00 01/09/17 22:00 Hibiclens For Decolonization - TP 1 applic HS CLARE Administration Clopidogrel Bisulfate 75 mg 01/08/17 10:00 01/10/17 11:17 Plavix - PO Not Given DAILY CLARE Docusate Sodium 300 mg 01/09/17 12:46 Colace Liquid - PO DAILY PRN CONSTIPATION Heparin Sodium (Porcine) 5,000 unit 01/07/17 22:00 01/10/17 10:01 Heparin - SQ 5,000 unit BID CLARE Administration Fentanyl 500 mcg/ Dextrose 100 mls @ 20 mls/hr 01/08/17 09:15 01/08/17 20:00 IJ 25 mcg/hr TITR CLARE Titration 100 MCG/HR Ceftriaxone Sodium 50 mls @ 100 mls/hr 01/08/17 11:45 01/10/17 10:02 Rocephin 1gm Ivpb (Pre-Docked) IVPB 100 mls/hr DAILY CLARE Administration Propofol 100 mls @ 3.32 mls/hr 01/08/17 14:15 01/09/17 15:27 Diprivan - IVPB 10 mls/hr TITR CLARE Administration Protocol 10 MCG/KG/MIN Famotidine/Sodium Chloride 50 mls @ 100 mls/hr 01/09/17 22:30 01/10/17 09:19 Pepcid 20 Mg Premixed Ivpb - IVPB 100 mls/hr BID CLARE Administration Sodium Chloride 1,000 mls @ 75 mls/hr 01/10/17 11:30 01/10/17 12:54 Normal Saline - IV 75 mls/hr ASDIR CLARE Administration Sodium Phosphate 20 mm/ Sodium 256.6667 mls @ 62.5 mls/hr 01/09/17 21:42 Chloride IVPB 01/10/17 01:48 ONCE ONE Insulin Aspart 1 vial 01/09/17 22:00 01/10/17 08:54 Novolog Vial Sliding Scale - SQ 6 units ACHS CLARE Administration Protocol Levothyroxine Sodium 100 mcg/ 175 mcg 01/09/17 07:00 01/09/17 07:06 Levothyroxine Sodium 75 mcg PO Not Given DAILY@0700 [facility] Metoprolol Tartrate 12.5 mg 01/08/17 11:45 01/10/17 11:16 Lopressor - PO Not Given BID CLARE Mupirocin 1 applic 01/09/17 22:00 01/10/17 11:19 Bactroban Ointment (For Decolonization) - NS 01/14/17 21:59 1 applic BID CLARE Administration ASSESSMENT/PLAN 66 year-old male, [place], with a PMH significant for HTN, dementia v. 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 Right nephrostomy tube has been replaced. Renal function improving. DKA has resolved. Workup for cholecystitis in progress. Extubated today. DKA IDDM --AG closed; insulin drip off --Novolog sliding scale coverage Acute on chronic renal insufficiency --Cr 3.3, baseline ~2.0 --likely obstructive --urine lytes pending to calculate FeNa Prostate adenocarcinoma Bilateral ureteral obstruction secondary to prostate adenocarcinoma Right-sided hydronephrosis --01/09 CTAP: right hydronephrosis with ureter dilated to pelvic region, no stones; left renal stent, non-obstructing nephrolithiasis --discussed with urologist, Dr. Ruben Rivera; pathology just confirmed malignancy --son/HCP has given consent, will go to IR today for re-placement of right nephrostomy tube --urology following Gram negative UTI --afebrile, leukocytosis resolved --continue ceftriaxone (day #2) Fecal impaction --seen on CTAP --bowel regimen: colace liquid, bisocodyl supp h/o CVA --Plavix on hold h/o DVTs --CTAP confirms IVC filter placement Hypothyroidism --labs from 11/18/16 show TSH wnl --continue levothyroxine Dementia v. 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 Advised brother Dr. Reji Rodriguez, health data analyst at [facility] ( ) of 24 hour events. It appears son and uncle do not communicate. Patient continues to require ICU level care. FULL CODE.
[2017-01-10] MEDS ORDERED: PIPERACILLIN/TAZOB 3.375 GM/50 ML PRE-DOCKED IVPB SCH (14:45)
--- NOTE | 2017-01-10 15:27 | PN ---
Progress Note (short form) - Note Progress Note: ID consult dictated imp/reccd UTI- Klebsiella ESBL possible cholycystitis- awaiting hida scan s/p replacement of right PCN CKD contact isolation for resistant Klebsiella would treat with ertapenem crcl 24
--- NOTE | 2017-01-10 16:07 | PN ---
Progress Note, Physician History of Present Illness: Pt seen and examined at bedside. He is now extubated. He is awake and appears comfortable. - Current Medication List Current Medications: Active Medications Bisacodyl (Dulcolax Suppository -) 10 mg RC PRN PRN PRN Reason: CONSTIPATION Last Admin: 01/10/17 09:09 Dose: 10 mg Chlorhexidine Gluconate (Hibiclens For Decolonization -) 1 applic TP HS [facility] Last Admin: 01/09/17 22:00 Dose: 1 applic Clopidogrel Bisulfate (Plavix -) 75 mg PO DAILY [facility] Last Admin: 01/10/17 11:17 Dose: Not Given Docusate Sodium (Colace Liquid -) 300 mg PO DAILY PRN PRN Reason: CONSTIPATION Heparin Sodium (Porcine) (Heparin -) 5,000 unit SQ BID [facility] Last Admin: 01/10/17 10:01 Dose: 5,000 unit Fentanyl 500 mcg/ Dextrose 100 mls @ 20 mls/hr IJ TITR CLARE PRN Reason: 100 MCG/HR Last Titration: 01/08/17 20:00 Dose: 25 mcg/hr Propofol (Diprivan -) 100 mls @ 3.32 mls/hr IVPB TITR CLARE; 10 MCG/KG/MIN PRN Reason: Protocol Last Admin: 01/09/17 15:27 Dose: 10 mls/hr Famotidine/Sodium Chloride (Pepcid 20 Mg Premixed Ivpb -) 50 mls @ 100 mls/hr IVPB BID [facility] Last Admin: 01/10/17 09:19 Dose: 100 mls/hr Sodium Chloride (Normal Saline -) 1,000 mls @ 75 mls/hr IV ASDIR [facility] Last Admin: 01/10/17 12:54 Dose: 75 mls/hr Sodium Phosphate 20 mm/ Sodium (Chloride) 256.6667 mls @ 62.5 mls/hr IVPB ONCE ONE Stop: 01/10/17 01:48 Ertapenem 0.5 gm/ Sodium (Chloride) 50 mls @ 50 mls/hr IVPB DAILY [facility] PRN Reason: Protocol Insulin Aspart (Novolog Vial Sliding Scale -) 1 vial SQ ACHS CLARE PRN Reason: Protocol Last Admin: 01/10/17 08:54 Dose: 6 units Levothyroxine Sodium 100 mcg/ (Levothyroxine Sodium 75 mcg) 175 mcg PO DAILY@ 0700 [facility] Last Admin: 01/09/17 07:06 Dose: Not Given Metoprolol Tartrate (Lopressor -) 12.5 mg PO BID [facility] Last Admin: 01/10/17 11:16 Dose: Not Given Mupirocin (Bactroban Ointment (For Decolonization) -) 1 applic NS BID CLARE Stop: 01/14/17 21:59 Last Admin: 01/10/17 11:19 Dose: 1 applic - Objective Vital Signs: Vital Signs Temperature 100.0 F H 01/10/17 12:00 Pulse Rate 80 01/10/17 12:00 Respiratory Rate 22 01/10/17 12:00 Blood Pressure 137/71 01/10/17 12:00 O2 Sat by Pulse Oximetry (%) 100 01/10/17 10:31 Constitutional: Yes: Calm Eyes: Yes: Conjunctiva Clear HENT: Yes: Atraumatic Neck: Yes: Supple Cardiovascular: Yes: S1, S2 Respiratory: Yes: CTA Bilaterally Gastrointestinal: Yes: Normal Bowel Sounds, Soft Genitourinary: Yes: WNL Musculoskeletal: Yes: WNL Edema: No Neurological: Yes: Oriented Labs: CBC, BMP 01/10/17 05:20 01/10/17 05:20 INR, PTT INR 1.01 (0.82-1.09) 01/09/17 05:20 Problem List - Problems (1) SAMIR (acute kidney injury) Code(s): N17.9 - ACUTE KIDNEY FAILURE, UNSPECIFIED (2) Diabetic ketoacidosis with coma Code(s): E13.11 - OTH DIABETES MELLITUS WITH KETOACIDOSIS WITH COMA (3) Nephrostomy complication Code(s): N99.528 - OTHER COMP OF INCONTINENT EXTERNAL STOMA OF URINARY TRACT Assessment/Plan Current Medications Generic Name Dose Route Start Last Admin Trade Name Freq PRN Reason Stop Dose Admin Bisacodyl 10 mg 01/09/17 12:47 01/10/17 09:09 Dulcolax Suppository - RC 10 mg PRN PRN Administration CONSTIPATION Chlorhexidine Gluconate 1 applic 01/09/17 22:00 01/09/17 22:00 Hibiclens For Decolonization - TP 1 applic HS CLARE Administration Clopidogrel Bisulfate 75 mg 01/08/17 10:00 01/10/17 11:17 Plavix - PO Not Given DAILY [facility] Docusate Sodium 300 mg 01/09/17 12:46 Colace Liquid - PO DAILY PRN CONSTIPATION Heparin Sodium (Porcine) 5,000 unit 01/07/17 22:00 01/10/17 10:01 Heparin - SQ 5,000 unit BID CLARE Administration Fentanyl 500 mcg/ Dextrose 100 mls @ 20 mls/hr 01/08/17 09:15 01/08/17 20:00 IJ 25 mcg/hr TITR CLARE Titration 100 MCG/HR Propofol 100 mls @ 3.32 mls/hr 01/08/17 14:15 01/09/17 15:27 Diprivan - IVPB 10 mls/hr TITR CLARE Administration Protocol 10 MCG/KG/MIN Famotidine/Sodium Chloride 50 mls @ 100 mls/hr 01/09/17 22:30 01/10/17 09:19 Pepcid 20 Mg Premixed Ivpb - IVPB 100 mls/hr BID CLARE Administration Sodium Chloride 1,000 mls @ 75 mls/hr 01/10/17 11:30 01/10/17 12:54 Normal Saline - IV 75 mls/hr ASDIR CLARE Administration Sodium Phosphate 20 mm/ Sodium 256.6667 mls @ 62.5 mls/hr 01/09/17 21:42 Chloride IVPB 01/10/17 01:48 ONCE ONE Ertapenem 0.5 gm/ Sodium 50 mls @ 50 mls/hr 01/10/17 15:45 Chloride IVPB DAILY CLARE Protocol Insulin Aspart 1 vial 01/09/17 22:00 01/10/17 08:54 Novolog Vial Sliding Scale - SQ 6 units ACHS CLARE Administration Protocol Levothyroxine Sodium 100 mcg/ 175 mcg 01/09/17 07:00 01/09/17 07:06 Levothyroxine Sodium 75 mcg PO Not Given DAILY@0700 [facility] Metoprolol Tartrate 12.5 mg 01/08/17 11:45 01/10/17 11:16 Lopressor - PO Not Given BID [facility] Mupirocin 1 applic 01/09/17 22:00 01/10/17 11:19 Bactroban Ointment (For Decolonization) - NS 01/14/17 21:59 1 applic BID CLARE Administration Impression 1. Samir 2. DKA 3. hyperkalemia 4. ckd with baseline clinical laboratory technologist 2.2 5. obstructive uropathy with nephrostomy tube dislodged 6. dementia 7. developemental delay 8. hypothyroidism 9. DM 10. acidosis 11. respiratory failure - acute requiring intubation 12. prostate cancer 13. s/p IVC filter Plan - renal function stabilizing - s/p nephrostomy - repeat labs in am - urology follow up - monitor blood sugar - monitor urine output - will follow pt Dr Ruelas
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
[2017-01-10] MEDS ORDERED: CLOPIDOGREL BISULFATE 75 MG TABLET (FP) PO SCH (17:15)
--- NOTE | 2017-01-10 17:15 | PN ---
Physical Exam: SUBJECTIVE: Patient seen and examined at bedside. Extubated today, off sedation. OBJECTIVE: Vital Signs Period Temp Pulse Resp BP Sys/Franklin Pulse Ox Last 24 Hr 97.6 F-100.0 F 54-84 12-22 94-159/48-71 100-100 GENERAL: The patient is awake. Does not respond to verbal requests or commands but reacts to physical stimuli, complains about BP cough, tries to intervene with medical interventions HEAD: Upper right lip laceration likely from ETT EYES: resists opening eyelids LUNGS: Breath sounds equal, clear to auscultation bilaterally, no wheezes, no crackles HEART: Regular rate and rhythm, S1, S2 without murmur, rub or gallop. ABDOMEN: Soft, nontender, nondistended, normoactive bowel sounds, no guarding, no rebound EXTREMITIES: 2+ pulses, warm, well-perfused, no edema. Laboratory Results - last 24 hr 01/09/17 01/09/17 01/09/17 08:35 08:35 21:50 WBC RBC Hgb Hct MCV MCH MCHC RDW Plt Count MPV Puncture Site ABG pH ABG pCO2 at Pt Temp ABG pO2 at Pt Temp ABG HCO3 ABG O2 Sat (Measured) ABG O2 Content ABG Base Excess Oleksandr Test O2 Delivery Device Oxygen Flow Rate Vent Mode Vent Rate Mechanical Rate PEEP Pressure Support Vent Sodium Potassium Chloride Carbon Dioxide Anion Gap BUN Creatinine Creat Clearance w eGFR POC Glucometer [phone] Random Glucose Calcium Phosphorus Magnesium Total Bilirubin AST ALT Alkaline Phosphatase Total Protein Albumin U Random Total Protein 144 H Ur Random Sodium Cancelled 27 Ur Random Potassium Cancelled 21.0 Ur Random Chloride Cancelled 28 Urine Creatinine 72.6 01/10/17 01/10/17 01/10/17 00:53 03:21 05:20 WBC 4.1 D RBC 2.90 L Hgb 8.9 L Hct 26.0 L MCV 89.6 MCH 30.7 MCHC 34.2 RDW 15.6 Plt Count 179 MPV 7.5 Puncture Site ABG pH ABG pCO2 at Pt Temp ABG pO2 at Pt Temp ABG HCO3 ABG O2 Sat (Measured) ABG O2 Content ABG Base Excess Oleksandr Test O2 Delivery Device Oxygen Flow Rate Vent Mode Vent Rate Mechanical Rate PEEP Pressure Support Vent Sodium Potassium Chloride Carbon Dioxide Anion Gap BUN Creatinine Creat Clearance w eGFR POC Glucometer 193.43196 103.31636 Random Glucose Calcium Phosphorus Magnesium Total Bilirubin AST ALT Alkaline Phosphatase Total Protein Albumin U Random Total Protein Ur Random Sodium Ur Random Potassium Ur Random Chloride Urine Creatinine 01/10/17 01/10/17 01/10/17 05:20 07:35 08:52 WBC RBC Hgb Hct MCV MCH MCHC RDW Plt Count MPV Puncture Site Right radial ABG pH 7.32 L ABG pCO2 at Pt Temp 33.0 L ABG pO2 at Pt Temp 172.0 H* ABG HCO3 16.5 L ABG O2 Sat (Measured) 100.0 H* ABG O2 Content 11.1 L ABG Base Excess -8.4 L Oleksandr Test Positive O2 Delivery Device Mec.vent Oxygen Flow Rate 30% Vent Mode A/c Vent Rate 14 Mechanical Rate Esprit PEEP 5.0 Pressure Support Vent 500 Sodium 137 Potassium 4.0 Chloride 109 H Carbon Dioxide 20 L Anion Gap 8 BUN 47 H Creatinine 2.7 H Creat Clearance w eGFR 23.76 POC Glucometer 274.15435 Random Glucose 165 H D Calcium 8.3 L Phosphorus 2.6 Magnesium 1.8 Total Bilirubin 0.3 AST 21 D ALT 21 D Alkaline Phosphatase 92 Total Protein 6.4 Albumin 2.4 L U Random Total Protein Ur Random Sodium Ur Random Potassium Ur Random Chloride Urine Creatinine Active Medications Generic Name Dose Route Start Last Admin Trade Name Freq PRN Reason Stop Dose Admin Bisacodyl 10 mg 01/09/17 12:47 01/10/17 09:09 Dulcolax Suppository - RC 10 mg PRN PRN Administration CONSTIPATION Chlorhexidine Gluconate 1 applic 01/09/17 22:00 01/09/17 22:00 Hibiclens For Decolonization - TP 1 applic HS [facility] Administration Clopidogrel Bisulfate 75 mg 01/08/17 10:00 01/10/17 11:17 Plavix - PO Not Given DAILY [facility] Docusate Sodium 300 mg 01/09/17 12:46 Colace Liquid - PO DAILY PRN CONSTIPATION Heparin Sodium (Porcine) 5,000 unit 01/07/17 22:00 01/10/17 10:01 Heparin - SQ 5,000 unit BID [facility] Administration Fentanyl 500 mcg/ Dextrose 100 mls @ 20 mls/hr 01/08/17 09:15 01/08/17 20:00 IJ 25 mcg/hr TITR [facility] Titration 100 MCG/HR Propofol 100 mls @ 3.32 mls/hr 01/08/17 14:15 01/09/17 15:27 Diprivan - IVPB 10 mls/hr TITR [facility] Administration Protocol 10 MCG/KG/MIN Famotidine/Sodium Chloride 50 mls @ 100 mls/hr 01/09/17 22:30 01/10/17 09:19 Pepcid 20 Mg Premixed Ivpb - IVPB 100 mls/hr BID [facility] Administration Sodium Chloride 1,000 mls @ 75 mls/hr 01/10/17 11:30 01/10/17 12:54 Normal Saline - IV 75 mls/hr ASDIR [facility] Administration Sodium Phosphate 20 mm/ Sodium 256.6667 mls @ 62.5 mls/hr 01/09/17 21:42 Chloride IVPB 01/10/17 01:48 ONCE ONE Ertapenem 0.5 gm/ Sodium 50 mls @ 50 mls/hr 01/10/17 15:45 Chloride IVPB DAILY [facility] Protocol Insulin Aspart 1 vial 01/09/17 22:00 01/10/17 08:54 Novolog Vial Sliding Scale - SQ 6 units ACHS [facility] Administration Protocol Levothyroxine Sodium 100 mcg/ 175 mcg 01/09/17 07:00 01/09/17 07:06 Levothyroxine Sodium 75 mcg PO Not Given DAILY@0700 [facility] Metoprolol Tartrate 12.5 mg 01/08/17 11:45 01/10/17 11:16 Lopressor - PO Not Given BID [facility] Mupirocin 1 applic 01/09/17 22:00 01/10/17 11:19 Bactroban Ointment (For Decolonization) - NS 01/14/17 21:59 1 applic BID [facility] Administration ASSESSMENT/PLAN: 66 year-old male, [place] resident, with a PMH significant for HTN, dementia/psych disorder, h/o CVA on Plavix, IDDM, h/o DVTs with IVC filter, hypothyroidism, basal cell carcinoma, CKD, newly diagnosed prostate adenocarcinoma obstructing bilateral ureters, s/p left ureteral JJ stent (11/2015), s/p right nephrostomy tube replacement (01/09/17), and paraplegia. DKA, resolved IDDM --Novolog sliding scale coverage Acute on chronic renal insufficiency Right-sided --Cr improving 2.7 (<--3.3), baseline ~2.0 following resinsertion of right nephrostomy tube Prostate adenocarcinoma Bilateral ureteral obstruction secondary to prostate adenocarcinoma Right-sided hydronephrosis --01/09 CTAP: right hydronephrosis with ureter dilated to pelvic region, no stones; left renal stent, non-obstructing nephrolithiasis --discussed with urologist, Dr. Ruben Rivera; pathology confirmed malignancy --urology following Klebsiella ESBL UTI --afebrile, leukocytosis resolved --switched to Ertapenem today --ID following Cholelithiasis Fecal impaction --resolved with suppository, BM today --bowel regimen: colace liquid, bisocodyl supp PRN h/o CVA --no bleeding issues following IR procedure --resume Plavix h/o DVTs --CTAP confirms IVC filter placement Hypothyroidism --labs from 11/18/16 show TSH wnl --continue levothyroxine Dementia v. psych disorder not otherwise specified --patient has decades-long history of anti-social behavior, has been under psychiatric care; unclear if patient has ever been actually diagnosed with dementia; he has been treated with Haldol in the past for agitation; he is on no home psych meds --psych consult Basal cell carcinoma --no acute issues Paraplegia --PT evaluation when acute issues resolve DVT prophylaxis: subq heparin Dispo: reached HCP/son Nba Rodriguez ( ), he will provide necessary consents. Advised brother Dr. Reji Rodriguez, loss prevention lead at [facility] ( ) of 24 hour events. It appears son and uncle do not communicate. Patient continues to require ICU level care. FULL CODE. Visit type - Emergency Visit Emergency Visit: Yes ED Registration Date: 01/07/17 Care time: The patient presented to the Emergency Department on the above date and was hospitalized for further evaluation of their emergent condition. - New Patient This patient is new to me today: No - Critical Care Critical Care patient: Yes Total Critical Care Time (in minutes): 45 Critical Care Statement: The care of this patient involved high complexity decision making to prevent further life threatening deterioration of the patient 's condition and/or to evaluate & treat vital organ system(s) failure or risk of failure.
[2017-01-10] MEDS: ERTAPENEM SODIUM 0.5 GM in SODIUM CHLORIDE 50 ML IVPB SCH (19:58)
[2017-01-10] MEDS ORDERED: oxyCODONE HCL 5 MG TABLET PO PRN (20:15)
[2017-01-10] MEDS: CHLORHEXIDINE GLUCONATE 4% CLEANSER FOR DECOLONIZATION TP SCH (21:16)
[2017-01-10] MEDS: ACETAMINOPHEN 325 MG TABLET (FP) PO PRN (21:16)
[2017-01-11 06:03] LABS: MCH 30.8 pg (25.7-33.7); MCHC 34.3 g/dl (32.0-35.9); MEAN CELL VOLUME 89.8 fl (80-96); MEAN PLT VOLUME 7.5 fl (7.5-11.1); PLATELET COUNT 172 K/MM3 (134-434); RDW 15.6 % (11.9-15.9); WHITE BLOOD COUNT 3.8 K/mm3 (4.0-10.0)
[2017-01-11 06:17] LABS: ANION GAP 10 (8-16); CALCIUM 8.5 mg/dL (8.5-10.1); CO2 21 mmol/L (21-32); CREATININE 2.1 mg/dL (0.7-1.3); GLUCOSE,RANDOM 139 mg/dL (74-106); MAGNESIUM 2.2 mg/dL (1.8-2.4); PHOSPHOROUS 2.8 mg/dL (2.5-4.9)
[2017-01-11] MEDS ORDERED: LEVOTHYROXINE NA 75 MCG TABLET (FP) ONE (07:19)
[2017-01-11] MEDS ORDERED: LEVOTHYROXINE NA 100 MCG TABLET (FP) ONE (07:19)
[2017-01-11] MEDS: LEVOTHYROXINE 100 MCG, LEVOTHYROXINE 75 MCG PO SCH (07:21)
--- NOTE | 2017-01-11 07:24 | PN ---
Progress Note, Physician Chief Complaint: ID Chart reviewed from admission. Currently stable no complaints and in NAD Ertepenem started based on urine culture Low grade temps - Current Medication List Current Medications: Active Medications Acetaminophen (Tylenol -) 650 mg PO Q6H PRN PRN Reason: PAIN Bisacodyl (Dulcolax Suppository -) 10 mg RC PRN PRN PRN Reason: CONSTIPATION Last Admin: 01/10/17 09:09 Dose: 10 mg Chlorhexidine Gluconate (Hibiclens For Decolonization -) 1 applic TP HS [facility] Last Admin: 01/10/17 21:16 Dose: 1 applic Clopidogrel Bisulfate (Plavix -) 75 mg PO DAILY [facility] Last Admin: 01/10/17 11:17 Dose: Not Given Docusate Sodium (Colace Liquid -) 300 mg PO DAILY PRN PRN Reason: CONSTIPATION Heparin Sodium (Porcine) (Heparin -) 5,000 unit SQ BID [facility] Last Admin: 01/10/17 21:17 Dose: 5,000 unit Famotidine/Sodium Chloride (Pepcid 20 Mg Premixed Ivpb -) 50 mls @ 100 mls/hr IVPB BID [facility] Last Admin: 01/10/17 21:17 Dose: 100 mls/hr Sodium Chloride (Normal Saline -) 1,000 mls @ 75 mls/hr IV ASDIR [facility] Last Admin: 01/10/17 12:54 Dose: 75 mls/hr Ertapenem 0.5 gm/ Sodium (Chloride) 50 mls @ 100 mls/hr IVPB DAILY [facility] PRN Reason: Protocol Last Admin: 01/10/17 19:58 Dose: 100 mls/hr Insulin Aspart (Novolog Vial Sliding Scale -) 1 vial SQ ACHS [facility] PRN Reason: Protocol Last Admin: 01/10/17 23:04 Dose: 10 units Levothyroxine Sodium 100 mcg/ (Levothyroxine Sodium 75 mcg) 175 mcg PO DAILY@ 0700 [facility] Last Admin: 01/10/17 07:00 Dose: Not Given Metoprolol Tartrate (Lopressor -) 12.5 mg PO BID [facility] Last Admin: 01/10/17 22:47 Dose: 12.5 mg Mupirocin (Bactroban Ointment (For Decolonization) -) 1 applic NS BID [facility] Stop: 01/14/17 21:59 Last Admin: 01/10/17 21:16 Dose: 1 applic Oxycodone HCl (Roxicodone -) 10 mg PO Q6H PRN PRN Reason: PAIN - Objective Vital Signs: Vital Signs Temperature 100 F H 01/10/17 22:00 Pulse Rate 81 01/10/17 22:00 Respiratory Rate 23 01/10/17 22:00 Blood Pressure 185/87 01/10/17 22:00 O2 Sat by Pulse Oximetry (%) 100 01/10/17 21:00 Constitutional: Yes: No Distress Neck: Yes: WNL, Supple Cardiovascular: Yes: Regular Rate and Rhythm, S1, S2 Respiratory: Yes: WNL, Regular, CTA Bilaterally. No: Rales, Rhonchi Gastrointestinal: Yes: WNL, Normal Bowel Sounds, Soft. No: Tenderness Extremities: No: Cold, Cool Edema: No Labs: CBC, BMP 01/11/17 05:15 01/11/17 05:15 INR, PTT INR 1.01 (0.82-1.09) 01/09/17 05:20 Assessment/Plan Microbiology 01/08/17 11:00 Urine - Urine Wolfe Urine Culture - Final Klebsiella Pneumoniae - Esbl 01/08/17 10:30 Blood - Peripheral Venous Blood Culture - Preliminary NO GROWTH OBTAINED AFTER 48 HOURS, INCUBATION TO CONTINUE FOR 3 DAYS. 01/08/17 10:20 Blood - Peripheral Venous Blood Culture - Preliminary NO GROWTH OBTAINED AFTER 48 HOURS, INCUBATION TO CONTINUE FOR 3 DAYS. Laboratory Tests 01/07/17 01/10/17 01/11/17 15:00 07:35 05:15 WBC 3.8 L Hgb 9.1 L Hct 26.6 L Plt Count 172 ABG pCO2 at Pt Temp 33.0 L Oxygen Flow Rate 30% Ur Leukocyte Esterase 2+ H Assessment ESBL urinary infection on appropriate therapy Right hydronephrosis with placement of PCN Diabetes Acidosis S/P respiratory failure Plan Continue present antibiotic as ordered An HIV test should be performed Robb HERNANDEZ
[2017-01-11] MEDS: INSULIN SLIDING SCALE (NOVOLOG) 1 VIAL SQ SCH ×4 (07:29→21:19)
[2017-01-11] MEDS ORDERED: ACETAMINOPHEN 325 MG TABLET (FP) PO PRN (09:13)
[2017-01-11] MEDS ORDERED: oxyCODONE HCL 5 MG TABLET PO PRN (09:13)
--- NOTE | 2017-01-11 09:32 | PN ---
Physical Exam: SUBJECTIVE: Patient seen and examined in the ICU. S/p intubation, denies chest pain or shortness of breath OBJECTIVE: Phone #s: HCP/son Nba Rodriguez ( ) - call if consents needed Vital Signs Period Temp Pulse Resp BP Sys/Franklin Pulse Ox Last 24 Hr 97.8 F-100.0 F 56-84 14-23 137-185/62-93 100-100 GENERAL: The patient is awake, alert, and fully oriented, in no acute distress, verbalizing generalized pain HEAD: Normal with no signs of trauma. EYES: PERRL, extraocular movements intact, sclera anicteric, conjunctiva clear. No ptosis. ENT: Ears normal, nares patent, oropharynx clear without exudates, moist mucous membranes. NECK: Trachea midline, full range of motion, supple. LUNGS: Breath sounds equal, clear to auscultation bilaterally, no wheezes, no crackles, no accessory muscle use. ABDOMEN: Soft, nontender, nondistended, normoactive bowel sounds, no guarding, no rebound, no hepatosplenomegaly, no masses. NEUROLOGICAL: Normal speech, gait not observed. PSYCH: Normal mood, normal affect. SKIN: mcbride catheter and right neph. tube Laboratory Results - last 24 hr 01/10/17 01/10/17 01/10/17 12:40 16:44 23:00 WBC RBC Hgb Hct MCV MCH MCHC RDW Plt Count MPV Sodium Potassium Chloride Carbon Dioxide Anion Gap BUN Creatinine POC Glucometer 150.47254 141.51217 > 400 Random Glucose Calcium Phosphorus Magnesium 01/11/17 01/11/17 05:15 05:15 WBC 3.8 L RBC 2.97 L Hgb 9.1 L Hct 26.6 L MCV 89.8 MCH 30.8 MCHC 34.3 RDW 15.6 Plt Count 172 MPV 7.5 Sodium 144 Potassium 4.1 Chloride 113 H Carbon Dioxide 21 Anion Gap 10 BUN 39 H Creatinine 2.1 H D POC Glucometer Random Glucose 139 H Calcium 8.5 Phosphorus 2.8 Magnesium 2.2 D Active Medications Generic Name Dose Route Start Last Admin Trade Name Freq PRN Reason Stop Dose Admin Acetaminophen 650 mg 01/10/17 20:15 Tylenol - PO Q6H PRN PAIN Acetaminophen 650 mg 01/11/17 09:13 Tylenol - PO Q6H PRN PAIN 6-10 Bisacodyl 10 mg 01/09/17 12:47 01/10/17 09:09 Dulcolax Suppository - RC 10 mg PRN PRN Administration CONSTIPATION Chlorhexidine Gluconate 1 applic 01/09/17 22:00 01/10/17 21:16 Hibiclens For Decolonization - TP 1 applic HS [facility] Administration Clopidogrel Bisulfate 75 mg 01/08/17 10:00 01/10/17 11:17 Plavix - PO Not Given DAILY [facility] Docusate Sodium 300 mg 01/09/17 12:46 Colace Liquid - PO DAILY PRN CONSTIPATION Heparin Sodium (Porcine) 5,000 unit 01/07/17 22:00 01/10/17 22:00 Heparin - SQ 5,000 unit BID [facility] Administration Famotidine/Sodium Chloride 50 mls @ 100 mls/hr 01/09/17 22:30 01/10/17 21:17 Pepcid 20 Mg Premixed Ivpb - IVPB 100 mls/hr BID [facility] Administration Sodium Chloride 1,000 mls @ 75 mls/hr 01/10/17 11:30 01/10/17 12:54 Normal Saline - IV 75 mls/hr ASDIR [facility] Administration Ertapenem 0.5 gm/ Sodium 50 mls @ 100 mls/hr 01/10/17 15:45 01/10/17 19:58 Chloride IVPB 100 mls/hr DAILY [facility] Administration Protocol Insulin Aspart 1 vial 01/09/17 22:00 01/11/17 07:29 Novolog Vial Sliding Scale - SQ Not Given ACHS [facility] Protocol Levothyroxine Sodium 100 mcg/ 175 mcg 01/09/17 07:00 01/11/17 07:21 Levothyroxine Sodium 75 mcg PO 175 mcg DAILY@0700 [facility] Administration Metoprolol Tartrate 12.5 mg 01/08/17 11:45 01/10/17 22:47 Lopressor - PO 12.5 mg BID [facility] Administration Mupirocin 1 applic 01/09/17 22:00 01/10/17 21:16 Bactroban Ointment (For Decolonization) - NS 01/14/17 21:59 1 applic BID [facility] Administration Oxycodone HCl 10 mg 01/11/17 09:13 Roxicodone - PO Q6H PRN PAIN 6-10 ASSESSMENT/PLAN: Patient is a 66 year old male with a significant pats medical history of HTN, dementia/psych disorder, h/o CVA on Plavix, IDDM, h/o DVTs with IVC filter, hypothyroidism, basal cell carcinoma, CKD, newly diagnosed prostate adenocarcinoma obstructing bilateral ureters, s/p left ureteral JJ stent (2015), s/p right nephrostomy tube replacement (01/09/17), and paraplegia. : Acute Kidney injury/Acute on chronic renal insufficiency Bilateral ureteral obstruction secondary to prostate adenocarcinoma A/P: right nephrostomy tube replacement on 01/09, +mcbride cath making urine, monitor intake and output Creatinine improving On NS @ 75cc/hr Prostate adenocarcinoma A/P: 01/09 CTAP shows right hydronephrosis with ureter dilated to pelvic region, no stones; left renal stent, non-obstructing nephrolithiasis Urology following Endocrine: DKA - now resolved A/P: Novolog sliding scale adjusted for tighter control Elevated blood sugars today, added Levemir @ HS ID: A/P: + urine cultures with Klebsiella ESBL UTI Low grade temps on 01/10, on Ertapenem WBC down trending ID following Hematology: DVT history A/P: Has IVC filter F.E.N. Fluids; Normal saline Electrolytes; monitor Nutrition: low sodium
[2017-01-11 09:50] LABS: HIV 1 & 2 AB NEGATIVE; HIV 1 AGp24 NEGATIVE
[2017-01-11] MEDS: HEPARIN NA (PORCINE) 5,000 UNITS/ML 1ML VIAL SQ SCH ×2 (10:00→21:06)
[2017-01-11] MEDS ORDERED: PT OWN MED DRAWER 7, Y5N ONE (10:24)
--- NOTE | 2017-01-11 10:59 | PN ---
Progress Note (short form) - Note Progress Note: SUBJECTIVE: Pt seen and examined in the ICU. 24: Wbc downtrending nicely awake, minimal oxygen requirement being weaned 350 from nephrostomy, making urine BGL 129, no Gap OBJECTIVE: Vital Signs Temp 97.9 F 01/11/17 06:00 Pulse 62 01/11/17 06:00 Resp 18 01/11/17 06:00 BP 162/62 01/11/17 06:00 Pulse Ox 100 01/10/17 21:00 Intake & Output 01/10/17 01/10/17 01/11/17 11:59 23:59 11:59 Intake Total 1601 870 200 Output Total 6523 477 4482 Balance Weight 63.3 kg 58.4 kg Intake: IV 1551 415 NOVOLIN R VIAL *For 1 IVPUSH or IV DRIP Only* 100 UNITS In Normal Saline - 99 ml @ 0.1 UNITS/KG/HR 5.53 mls/hr IVPB TITR [facility] Rx#: [id number] Diprivan - 100 ml @ 10 150 5 MCG/KG/MIN 3.32 mls/hr IVPB TITR [facility] Rx#: [id number] D5-Ns - 1,000 ml @ 100 300 mls/hr IV ASDIR [facility] Rx#: [id number] D5-Ns - 1,000 ml @ 100 1000 400 mls/hr IV ASDIR [facility] Rx#: [id number] fentanyl 100 10 IVPB 50 5 100 Oral 450 100 Output: Drainage 200 350 Right Flank 200 350 Urine 1795 644 [id number] Wolfe 6353 [id number] Other: Voiding Method Indwelling Catheter Bowel Movement No Yes Yes # Bowel Movements 0 1 1 Weight Measurement Method [facility] Gen: extubated, awake, alert, w/o distress Heart: RRR Lung: decreased breath sounds at the bases Abd: soft, nontender Ext: trace edema, dressed heels Neuro: intact to baseline, watching TV CBC, BMP 01/11/17 05:15 01/11/17 05:15 Active Medications Acetaminophen (Tylenol -) 650 mg PO Q6H PRN PRN Reason: PAIN Acetaminophen (Tylenol -) 650 mg PO Q6H PRN PRN Reason: PAIN 6-10 Bisacodyl (Dulcolax Suppository -) 10 mg RC PRN PRN PRN Reason: CONSTIPATION Last Admin: 01/10/17 09:09 Dose: 10 mg Chlorhexidine Gluconate (Hibiclens For Decolonization -) 1 applic TP HS [facility] Last Admin: 01/10/17 21:16 Dose: 1 applic Clopidogrel Bisulfate (Plavix -) 75 mg PO DAILY [facility] Last Admin: 01/10/17 11:17 Dose: Not Given Docusate Sodium (Colace Liquid -) 300 mg PO DAILY PRN PRN Reason: CONSTIPATION Heparin Sodium (Porcine) (Heparin -) 5,000 unit SQ BID [facility] Last Admin: 01/10/17 22:00 Dose: 5,000 unit Famotidine/Sodium Chloride (Pepcid 20 Mg Premixed Ivpb -) 50 mls @ 100 mls/hr IVPB BID [facility] Last Admin: 01/10/17 21:17 Dose: 100 mls/hr Sodium Chloride (Normal Saline -) 1,000 mls @ 75 mls/hr IV ASDIR [facility] Last Admin: 01/10/17 12:54 Dose: 75 mls/hr Ertapenem 0.5 gm/ Sodium (Chloride) 50 mls @ 100 mls/hr IVPB DAILY [facility] PRN Reason: Protocol Last Admin: 01/10/17 19:58 Dose: 100 mls/hr Insulin Aspart (Novolog Vial Sliding Scale -) 1 vial SQ ACHS [facility] PRN Reason: Protocol Last Admin: 01/11/17 07:29 Dose: Not Given Levothyroxine Sodium 100 mcg/ (Levothyroxine Sodium 75 mcg) 175 mcg PO DAILY@ 0700 [facility] Last Admin: 01/11/17 07:21 Dose: 175 mcg Metoprolol Tartrate (Lopressor -) 12.5 mg PO BID [facility] Last Admin: 01/10/17 22:47 Dose: 12.5 mg Mupirocin (Bactroban Ointment (For Decolonization) -) 1 applic NS BID [facility] Stop: 01/14/17 21:59 Last Admin: 01/10/17 21:16 Dose: 1 applic Oxycodone HCl (Roxicodone -) 10 mg PO Q6H PRN PRN Reason: PAIN 6-10 ASSESSMENT AND PLAN: Acute Respiratory Failure Diabetic Ketoacidosis Metabolic Acidosis Hyperkalemia Acute Kidney Injury UTI Hypothyroidism Right Hydronephrosis s/p Right Percutaneous Nephrostomy - continue IVF, decrease rate - monitor urine output, creatinine - continue ertapenem - f/u cultures, narrow as indicated - DVT/GI prophylaxis - ok for med surg today Han Noland ACNP [id number]
[2017-01-11] MEDS: ERTAPENEM SODIUM 0.5 GM in SODIUM CHLORIDE 50 ML IVPB SCH (11:30)
[2017-01-11] MEDS: METOPROLOL TARTRATE 50 MG TABLET (FP) PO SCH (11:35)
[2017-01-11] MEDS: FAMOTIDINE 20 MG/50 ML IVPB 50 ML IVPB SCH ×2 (11:35→21:05)
[2017-01-11] MEDS: CLOPIDOGREL BISULFATE 75 MG TABLET (FP) PO SCH (11:35)
[2017-01-11] MEDS: MUPIROCIN 2% TOPICAL OINTMENT FOR DECOLONIZATION NS SCH ×2 (11:35→21:08)
--- NOTE | 2017-01-11 13:17 | PN ---
Progress Note, Physician History of Present Illness: Pt seen and examined at bedside. He is awake and alert. - Current Medication List Current Medications: Active Medications Acetaminophen (Tylenol -) 650 mg PO Q6H PRN PRN Reason: PAIN Acetaminophen (Tylenol -) 650 mg PO Q6H PRN PRN Reason: PAIN 6-10 Bisacodyl (Dulcolax Suppository -) 10 mg RC PRN PRN PRN Reason: CONSTIPATION Last Admin: 01/10/17 09:09 Dose: 10 mg Chlorhexidine Gluconate (Hibiclens For Decolonization -) 1 applic TP HS [facility] Last Admin: 01/10/17 21:16 Dose: 1 applic Clopidogrel Bisulfate (Plavix -) 75 mg PO DAILY [facility] Last Admin: 01/11/17 11:35 Dose: 75 mg Docusate Sodium (Colace Liquid -) 300 mg PO DAILY PRN PRN Reason: CONSTIPATION Heparin Sodium (Porcine) (Heparin -) 5,000 unit SQ BID [facility] Last Admin: 01/11/17 10:00 Dose: Not Given Famotidine/Sodium Chloride (Pepcid 20 Mg Premixed Ivpb -) 50 mls @ 100 mls/hr IVPB BID [facility] Last Admin: 01/11/17 11:35 Dose: 100 mls/hr Sodium Chloride (Normal Saline -) 1,000 mls @ 75 mls/hr IV ASDIR [facility] Last Admin: 01/10/17 12:54 Dose: 75 mls/hr Ertapenem 0.5 gm/ Sodium (Chloride) 50 mls @ 100 mls/hr IVPB DAILY [facility] PRN Reason: Protocol Last Admin: 01/11/17 11:30 Dose: 100 mls/hr Insulin Aspart (Novolog Vial Sliding Scale -) 1 vial SQ ACHS [facility] PRN Reason: Protocol Last Admin: 01/11/17 12:00 Dose: 14 units Insulin Detemir (Levemir Vial) 10 units SQ HS [facility] Levothyroxine Sodium 100 mcg/ (Levothyroxine Sodium 75 mcg) 175 mcg PO DAILY@ 0700 [facility] Last Admin: 01/11/17 07:21 Dose: 175 mcg Metoprolol Tartrate (Lopressor -) 12.5 mg PO BID [facility] Last Admin: 01/11/17 11:35 Dose: 12.5 mg Mupirocin (Bactroban Ointment (For Decolonization) -) 1 applic NS BID [facility] Stop: 01/14/17 21:59 Last Admin: 01/11/17 11:35 Dose: Not Given Oxycodone HCl (Roxicodone -) 10 mg PO Q6H PRN PRN Reason: PAIN 6-10 - Objective Vital Signs: Vital Signs Temperature 97.9 F 01/11/17 12:00 Pulse Rate 66 01/11/17 12:00 Respiratory Rate 16 01/11/17 12:00 Blood Pressure 173/63 01/11/17 12:00 O2 Sat by Pulse Oximetry (%) 99 01/11/17 09:00 Constitutional: Yes: Calm Eyes: Yes: Conjunctiva Clear HENT: Yes: Atraumatic Neck: Yes: Supple Cardiovascular: Yes: S1, S2 Respiratory: Yes: CTA Bilaterally Gastrointestinal: Yes: Normal Bowel Sounds, Soft Genitourinary: Yes: Wolfe Present, Other (right nephrostomy) Musculoskeletal: Yes: WNL Edema: No Neurological: Yes: Oriented Labs: CBC, BMP 01/11/17 05:15 01/11/17 05:15 INR, PTT INR 1.01 (0.82-1.09) 01/09/17 05:20 Problem List - Problems (1) SAMIR (acute kidney injury) Code(s): N17.9 - ACUTE KIDNEY FAILURE, UNSPECIFIED (2) Diabetic ketoacidosis with coma Code(s): E13.11 - OTH DIABETES MELLITUS WITH KETOACIDOSIS WITH COMA (3) Nephrostomy complication Code(s): N99.528 - OTHER COMP OF INCONTINENT EXTERNAL STOMA OF URINARY TRACT Assessment/Plan Current Medications Generic Name Dose Route Start Last Admin Trade Name Freq PRN Reason Stop Dose Admin Acetaminophen 650 mg 01/10/17 20:15 Tylenol - PO Q6H PRN PAIN Acetaminophen 650 mg 01/11/17 09:13 Tylenol - PO Q6H PRN PAIN 6-10 Bisacodyl 10 mg 01/09/17 12:47 01/10/17 09:09 Dulcolax Suppository - RC 10 mg PRN PRN Administration CONSTIPATION Chlorhexidine Gluconate 1 applic 01/09/17 22:00 01/10/17 21:16 Hibiclens For Decolonization - TP 1 applic HS [facility] Administration Clopidogrel Bisulfate 75 mg 01/08/17 10:00 01/11/17 11:35 Plavix - PO 75 mg DAILY [facility] Administration Docusate Sodium 300 mg 01/09/17 12:46 Colace Liquid - PO DAILY PRN CONSTIPATION Heparin Sodium (Porcine) 5,000 unit 01/07/17 22:00 01/11/17 10:00 Heparin - SQ Not Given BID [facility] Famotidine/Sodium Chloride 50 mls @ 100 mls/hr 01/09/17 22:30 01/11/17 11:35 Pepcid 20 Mg Premixed Ivpb - IVPB 100 mls/hr BID [facility] Administration Sodium Chloride 1,000 mls @ 75 mls/hr 01/10/17 11:30 01/10/17 12:54 Normal Saline - IV 75 mls/hr ASDIR [facility] Administration Ertapenem 0.5 gm/ Sodium 50 mls @ 100 mls/hr 01/10/17 15:45 01/11/17 11:30 Chloride IVPB 100 mls/hr DAILY [facility] Administration Protocol Insulin Aspart 1 vial 01/11/17 16:30 01/11/17 12:00 Novolog Vial Sliding Scale - SQ 14 units ACHS [facility] Administration Protocol Insulin Detemir 10 units 01/11/17 22:00 Levemir Vial SQ HS [facility] Levothyroxine Sodium 100 mcg/ 175 mcg 01/09/17 07:00 01/11/17 07:21 Levothyroxine Sodium 75 mcg PO 175 mcg DAILY@0700 [facility] Administration Metoprolol Tartrate 12.5 mg 01/08/17 11:45 01/11/17 11:35 Lopressor - PO 12.5 mg BID [facility] Administration Mupirocin 1 applic 01/09/17 22:00 01/11/17 11:35 Bactroban Ointment (For Decolonization) - NS 01/14/17 21:59 Not Given BID [facility] Oxycodone HCl 10 mg 01/11/17 09:13 Roxicodone - PO Q6H PRN PAIN 6-10 Impression 1. Samir 2. DKA 3. hyperkalemia 4. ckd with baseline rn telephone triage 2.2 5. obstructive uropathy with nephrostomy tube dislodged 6. dementia 7. developemental delay 8. hypothyroidism 9. DM 10. acidosis 11. respiratory failure - acute requiring intubation 12. prostate cancer 13. s/p IVC filter Plan - renal function is stable - monitor urine output - can decrease fluids further - monitor blood sugar - will follow pt Dr Ruelas
[2017-01-11] MEDS: CHLORHEXIDINE GLUCONATE 4% CLEANSER FOR DECOLONIZATION TP SCH (21:08)
[2017-01-11] MEDS: METOPROLOL TARTRATE 25 MG TABLET (FP) PO SCH (21:18)
[2017-01-11] MEDS: SODIUM CHLORIDE 1,000 ML IV SCH (21:20)
[2017-01-11] MEDS ORDERED: INSULIN DETEMIR 100 UNITS/ML MDV SQ SCH (22:00)
[2017-01-12 06:06] LABS: MCH 30.3 pg (25.7-33.7); MCHC 33.7 g/dl (32.0-35.9); MEAN CELL VOLUME 89.9 fl (80-96); MEAN PLT VOLUME 7.4 fl (7.5-11.1); PLATELET COUNT 198 K/MM3 (134-434); RDW 15.6 % (11.9-15.9); WHITE BLOOD COUNT 3.6 K/mm3 (4.0-10.0)
[2017-01-12 06:36] LABS: ANION GAP 7 (8-16); CALCIUM 8.8 mg/dL (8.5-10.1); CO2 24 mmol/L (21-32); GLUCOSE,RANDOM 53 mg/dL (74-106)
[2017-01-12 06:38] LABS: CREATININE 1.7 mg/dL (0.7-1.3)
[2017-01-12] MEDS: INSULIN SLIDING SCALE (NOVOLOG) 1 VIAL SQ SCH ×4 (07:00→21:17)
[2017-01-12] MEDS: LEVOTHYROXINE 100 MCG, LEVOTHYROXINE 75 MCG PO SCH (08:00)
--- NOTE | 2017-01-12 08:10 | PN ---
Progress Note (short form) - Note Progress Note: Seen and examined in ICU awaiting floor bed afebrile SHARMILA improving AG remains closed Current Medications Acetaminophen (Tylenol -) 650 mg PO Q6H PRN PRN Reason: PAIN Acetaminophen (Tylenol -) 650 mg PO Q6H PRN PRN Reason: PAIN 6-10 Bisacodyl (Dulcolax Suppository -) 10 mg RC PRN PRN PRN Reason: CONSTIPATION Last Admin: 01/10/17 09:09 Dose: 10 mg Chlorhexidine Gluconate (Hibiclens For Decolonization -) 1 applic TP HS [facility] Last Admin: 01/11/17 21:08 Dose: 1 applic Clopidogrel Bisulfate (Plavix -) 75 mg PO DAILY [facility] Last Admin: 01/11/17 11:35 Dose: 75 mg Docusate Sodium (Colace Liquid -) 300 mg PO DAILY PRN PRN Reason: CONSTIPATION Heparin Sodium (Porcine) (Heparin -) 5,000 unit SQ BID [facility] Last Admin: 01/11/17 21:06 Dose: 5,000 unit Famotidine/Sodium Chloride (Pepcid 20 Mg Premixed Ivpb -) 50 mls @ 100 mls/hr IVPB BID [facility] Last Admin: 01/11/17 21:05 Dose: 100 mls/hr Sodium Chloride (Normal Saline -) 1,000 mls @ 75 mls/hr IV ASDIR [facility] Last Admin: 01/11/17 21:20 Dose: 75 mls/hr Ertapenem 0.5 gm/ Sodium (Chloride) 50 mls @ 100 mls/hr IVPB DAILY [facility] PRN Reason: Protocol Last Admin: 01/11/17 11:30 Dose: 100 mls/hr Insulin Aspart (Novolog Vial Sliding Scale -) 1 vial SQ ACHS [facility] PRN Reason: Protocol Last Admin: 01/11/17 21:19 Dose: 10 units Insulin Detemir (Levemir Vial) 5 units SQ HS [facility] Levothyroxine Sodium 100 mcg/ (Levothyroxine Sodium 75 mcg) 175 mcg PO DAILY@ 0700 [facility] Last Admin: 01/11/17 07:21 Dose: 175 mcg Metoprolol Tartrate (Lopressor -) 12.5 mg PO BID [facility] Last Admin: 01/11/17 21:18 Dose: 12.5 mg Mupirocin (Bactroban Ointment (For Decolonization) -) 1 applic NS BID [facility] Stop: 01/14/17 21:59 Last Admin: 01/11/17 21:08 Dose: 1 applic Oxycodone HCl (Roxicodone -) 10 mg PO Q6H PRN PRN Reason: PAIN 6-10 Vital Signs Period Temp Pulse Resp BP Sys/Franklin Pulse Ox Last 24 Hr 97.8 F-98.4 F 54-79 16-19 142-173/63-76 99 Intake & Output 01/09/17 01/10/17 01/11/17 01/12/17 23:59 23:59 23:59 23:59 Intake Total 1734 7781 400 Output Total 965 2100 4600 Balance 769 371 -4200 Weight 64.501 kg 63.3 kg 58.4 kg Exam: General: awake, alert, cooperative w/o distress Heart: RRR Lung: decreased breath sounds at the bases Abd: SNTND Ext: trace edema, dressed heels Neuro: grossly intact CBCD WBC 3.6 K/mm3 (4.0-10.0) L 01/12/17 05:15 RBC 3.22 M/mm3 (4.00-5.60) L 01/12/17 05:15 Hgb 9.8 GM/dL (11.7-16.9) L 01/12/17 05:15 Hct 29.0 % (35.4-49) L 01/12/17 05:15 MCV 89.9 fl (80-96) 01/12/17 05:15 MCHC 33.7 g/dl (32.0-35.9) 01/12/17 05:15 RDW 15.6 % (11.9-15.9) 01/12/17 05:15 Plt Count 198 K/MM3 (134-434) 01/12/17 05:15 MPV 7.4 fl (7.5-11.1) L 01/12/17 05:15 CMP Sodium 145 mmol/L (136-145) 01/12/17 05:15 Potassium 3.6 mmol/L (3.5-5.1) 01/12/17 05:15 Chloride 114 mmol/L (98-107) H 01/12/17 05:15 Carbon Dioxide 24 mmol/L (21-32) 01/12/17 05:15 Anion Gap 7 (8-16) L 01/12/17 05:15 BUN 34 mg/dL (7-18) H 01/12/17 05:15 Creatinine 1.7 mg/dL (0.7-1.3) H 01/12/17 05:15 Creat Clearance w eGFR 23.76 (>60) 01/10/17 05:20 Random Glucose 53 mg/dL (74-106) L D 01/12/17 05:15 Calcium 8.8 mg/dL (8.5-10.1) 01/12/17 05:15 Total Bilirubin 0.3 mg/dL (0.2-1.0) 01/10/17 05:20 AST 21 U/L (15-37) D 01/10/17 05:20 ALT 21 U/L (12-78) D 01/10/17 05:20 Alkaline Phosphatase 92 U/L (45-117) 01/10/17 05:20 Total Protein 6.4 g/dl (6.4-8.2) 01/10/17 05:20 Albumin 2.4 g/dl (3.4-5.0) L 01/10/17 05:20 Microbiology 01/08/17 10:20 Blood - Peripheral Venous Blood Culture - Preliminary NO GROWTH OBTAINED AFTER 72 HOURS, INCUBATION TO CONTINUE FOR 2 DAYS. 01/08/17 10:30 Blood - Peripheral Venous Blood Culture - Preliminary NO GROWTH OBTAINED AFTER 72 HOURS, INCUBATION TO CONTINUE FOR 2 DAYS. 01/08/17 11:00 Urine - Urine Wolfe Urine Culture - Final Klebsiella Pneumoniae - Esbl ASSESSMENT AND PLAN: Acute Respiratory Failure Diabetic Ketoacidosis Metabolic Acidosis Hyperkalemia Acute Kidney Injury UTI: ESBL Klebs Hypothyroidism Right Hydronephrosis s/p Right Percutaneous Nephrostomy - continue IVF - monitor urine output, creatinine - continue ertapenem - Cont abX per ID for ESBL Klebs - DVT/GI prophylaxis - ok for med surg today Boerem ACNP Pulm/CCM CCT: 35m
[2017-01-12] MEDS ORDERED: LEVOTHYROXINE NA 100 MCG TABLET (FP) ONE (09:38)
[2017-01-12] MEDS ORDERED: LEVOTHYROXINE NA 75 MCG TABLET (FP) ONE (09:39)
[2017-01-12] MEDS: FAMOTIDINE 20 MG/50 ML IVPB 50 ML IVPB SCH (09:43)
[2017-01-12] MEDS: ERTAPENEM SODIUM 0.5 GM in SODIUM CHLORIDE 50 ML IVPB SCH (09:43)
[2017-01-12] MEDS: CLOPIDOGREL BISULFATE 75 MG TABLET (FP) PO SCH (09:44)
[2017-01-12] MEDS: METOPROLOL TARTRATE 25 MG TABLET (FP) PO SCH ×2 (09:45→21:17)
[2017-01-12] MEDS: ACETAMINOPHEN 325 MG TABLET (FP) PO PRN (09:46)
[2017-01-12] MEDS: MUPIROCIN 2% TOPICAL OINTMENT FOR DECOLONIZATION NS SCH (09:48)
[2017-01-12] MEDS: HEPARIN NA (PORCINE) 5,000 UNITS/ML 1ML VIAL SQ SCH ×2 (09:48→21:16)
--- NOTE | 2017-01-12 10:44 | PN ---
Progress Note, Physician History of Present Illness: Awake, alert Complains of generalized pain Temps down, afebile Azotemia improved - Current Medication List Current Medications: Active Medications Acetaminophen (Tylenol -) 650 mg PO Q6H PRN PRN Reason: PAIN Last Admin: 01/12/17 09:46 Dose: 650 mg Acetaminophen (Tylenol -) 650 mg PO Q6H PRN PRN Reason: PAIN 6-10 Bisacodyl (Dulcolax Suppository -) 10 mg RC PRN PRN PRN Reason: CONSTIPATION Last Admin: 01/10/17 09:09 Dose: 10 mg Chlorhexidine Gluconate (Hibiclens For Decolonization -) 1 applic TP HS [facility] Last Admin: 01/11/17 21:08 Dose: 1 applic Clopidogrel Bisulfate (Plavix -) 75 mg PO DAILY [facility] Last Admin: 01/12/17 09:44 Dose: 75 mg Docusate Sodium (Colace Liquid -) 300 mg PO DAILY PRN PRN Reason: CONSTIPATION Heparin Sodium (Porcine) (Heparin -) 5,000 unit SQ BID [facility] Last Admin: 01/12/17 09:48 Dose: Not Given Famotidine/Sodium Chloride (Pepcid 20 Mg Premixed Ivpb -) 50 mls @ 100 mls/hr IVPB BID [facility] Last Admin: 01/12/17 09:43 Dose: 100 mls/hr Sodium Chloride (Normal Saline -) 1,000 mls @ 75 mls/hr IV ASDIR [facility] Last Admin: 01/11/17 21:20 Dose: 75 mls/hr Ertapenem 0.5 gm/ Sodium (Chloride) 50 mls @ 100 mls/hr IVPB DAILY [facility] PRN Reason: Protocol Last Admin: 01/12/17 09:43 Dose: 100 mls/hr Insulin Aspart (Novolog Vial Sliding Scale -) 1 vial SQ ACHS [facility] PRN Reason: Protocol Last Admin: 01/12/17 07:00 Dose: Not Given Insulin Detemir (Levemir Vial) 5 units SQ [facility] Levothyroxine Sodium 100 mcg/ (Levothyroxine Sodium 75 mcg) 175 mcg PO DAILY@ 0700 [facility] Last Admin: 01/11/17 07:21 Dose: 175 mcg Metoprolol Tartrate (Lopressor -) 12.5 mg PO BID [facility] Last Admin: 01/12/17 09:45 Dose: 12.5 mg Mupirocin (Bactroban Ointment (For Decolonization) -) 1 applic NS BID [facility] Stop: 01/14/17 21:59 Last Admin: 01/12/17 09:48 Dose: 1 applic Oxycodone HCl (Roxicodone -) 10 mg PO Q6H PRN PRN Reason: PAIN 6-10 - Objective Vital Signs: Vital Signs Temperature 98 F 01/12/17 04:00 Pulse Rate 56 L 01/12/17 04:00 Respiratory Rate 16 01/12/17 04:00 Blood Pressure 142/69 01/12/17 04:00 O2 Sat by Pulse Oximetry (%) 99 01/11/17 09:00 Constitutional: Yes: No Distress Cardiovascular: Yes: Regular Rate and Rhythm, S1, S2 Respiratory: Yes: Diminished Gastrointestinal: Yes: Normal Bowel Sounds, Soft. No: Tenderness Edema: Yes Edema: LLE: 1+, RLE: 1+ Labs: CBC, BMP 01/12/17 05:15 01/12/17 05:15 INR, PTT INR 1.01 (0.82-1.09) 01/09/17 05:20 Assessment/Plan ESBL UTI S/P DKA S/P respiratory failure Obstructive uropathy/ R PCN Leukopenia Azotemia- improved Continue ertapenem Contact precautions
[2017-01-12] MEDS: QUEtiapine FUMARATE 25 MG TABLET (FP) PO SCH (11:34)
[2017-01-12] MEDS ORDERED: LORazepam 1 MG TABLET PO ONE (11:52)
[2017-01-12] MEDS ORDERED: DOCUSATE NA 100 MG/10 ML UNIT-DOSE CUPS PO PRN (13:28)
[2017-01-12] MEDS ORDERED: SODIUM CHLORIDE 1,000 ML IV SCH (13:28)
[2017-01-12] MEDS ORDERED: BISACODYL 10 MG SUPP.RECT RC PRN (13:28)
--- NOTE | 2017-01-12 14:46 | PN ---
Progress Note, Physician History of Present Illness: Pt seen and examined at bedside. He is awake and alert. - Current Medication List Current Medications: Active Medications Bisacodyl (Dulcolax Suppository -) 10 mg RC PRN PRN PRN Reason: CONSTIPATION Clopidogrel Bisulfate (Plavix -) 75 mg PO DAILY [facility] Docusate Sodium (Colace Liquid -) 300 mg PO DAILY PRN PRN Reason: CONSTIPATION Heparin Sodium (Porcine) (Heparin -) 5,000 unit SQ BID [facility] Ertapenem 0.5 gm/ Sodium (Chloride) 50 mls @ 100 mls/hr IVPB DAILY [facility] PRN Reason: Protocol Famotidine/Sodium Chloride (Pepcid 20 Mg Premixed Ivpb -) 50 mls @ 100 mls/hr IVPB BID [facility] Sodium Chloride (Normal Saline -) 1,000 mls @ 75 mls/hr IV ASDIR [facility] Insulin Aspart (Novolog Vial Sliding Scale -) 1 vial SQ ACHS [facility] PRN Reason: Protocol Insulin Detemir (Levemir Vial) 5 units SQ HS [facility] Levothyroxine Sodium 100 mcg/ (Levothyroxine Sodium 75 mcg) 175 mcg PO DAILY@ 0700 [facility] Metoprolol Tartrate (Lopressor -) 12.5 mg PO BID [facility] Oxycodone/Acetaminophen (Percocet 5/325 -) 2 combo PO Q6H PRN PRN Reason: PAIN LEVEL 6-10 Last Admin: 01/12/17 11:33 Dose: 2 combo Quetiapine Fumarate (Seroquel -) 12.5 mg PO DAILY [facility] Last Admin: 01/12/17 11:34 Dose: 12.5 mg - Objective Vital Signs: Vital Signs Temperature 98 F 01/12/17 04:00 Pulse Rate 63 01/12/17 10:00 Respiratory Rate 16 01/12/17 10:00 Blood Pressure 156/61 01/12/17 10:00 O2 Sat by Pulse Oximetry (%) 97 01/12/17 09:00 Constitutional: Yes: Calm Eyes: Yes: Conjunctiva Clear HENT: Yes: Atraumatic Neck: Yes: Supple Cardiovascular: Yes: S1, S2 Respiratory: Yes: CTA Bilaterally Gastrointestinal: Yes: Soft Genitourinary: Yes: Wolfe Present, Other (nephrostomy) Musculoskeletal: Yes: WNL Edema: No Neurological: Yes: Oriented Psychiatric: Yes: Oriented Labs: CBC, BMP 01/12/17 05:15 01/12/17 05:15 INR, PTT INR 1.01 (0.82-1.09) 01/09/17 05:20 Problem List - Problems (1) SHARMILA (acute kidney injury) Code(s): N17.9 - ACUTE KIDNEY FAILURE, UNSPECIFIED (2) Diabetic ketoacidosis with coma Code(s): E13.11 - OTH DIABETES MELLITUS WITH KETOACIDOSIS WITH COMA (3) Nephrostomy complication Code(s): N99.528 - OTHER COMP OF INCONTINENT EXTERNAL STOMA OF URINARY TRACT Assessment/Plan Current Medications Generic Name Dose Route Start Last Admin Trade Name Freq PRN Reason Stop Dose Admin Bisacodyl 10 mg 01/12/17 13:28 Dulcolax Suppository - RC PRN PRN CONSTIPATION Clopidogrel Bisulfate 75 mg 01/13/17 10:00 Plavix - PO DAILY [facility] Docusate Sodium 300 mg 01/12/17 13:28 Colace Liquid - PO DAILY PRN CONSTIPATION Heparin Sodium (Porcine) 5,000 unit 01/12/17 22:00 Heparin - SQ BID [facility] Ertapenem 0.5 gm/ Sodium 50 mls @ 100 mls/hr 01/13/17 10:00 Chloride IVPB DAILY [facility] Protocol Famotidine/Sodium Chloride 50 mls @ 100 mls/hr 01/12/17 22:00 Pepcid 20 Mg Premixed Ivpb - IVPB BID [facility] Sodium Chloride 1,000 mls @ 75 mls/hr 01/12/17 13:28 Normal Saline - IV ASDIR [facility] Insulin Aspart 1 vial 01/12/17 16:30 Novolog Vial Sliding Scale - SQ ACHS [facility] Protocol Insulin Detemir 5 units 01/12/17 22:00 Levemir Vial SQ HS [facility] Levothyroxine Sodium 100 mcg/ 175 mcg 01/13/17 07:00 Levothyroxine Sodium 75 mcg PO DAILY@0700 [facility] Metoprolol Tartrate 12.5 mg 01/12/17 22:00 Lopressor - PO BID [facility] Oxycodone/Acetaminophen 2 combo 01/12/17 11:27 01/12/17 11:33 Percocet 5/325 - PO 2 combo Q6H PRN Administration PAIN LEVEL 6-10 Quetiapine Fumarate 12.5 mg 01/12/17 10:45 01/12/17 11:34 Seroquel - PO 12.5 mg DAILY [facility] Administration Impression 1. SHARMILA 2. DKA 3. hyperkalemia 4. 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 obstructive uropathy with nephrostomy tube dislodged 6. dementia 7. developemental delay 8. hypothyroidism 9. DM 10. acidosis 11. respiratory failure - acute requiring intubation 12. prostate cancer 13. s/p IVC filter Plan - cont to monitor renal function - creatinine has stabilized - repeat labs in am - can hold fluids as he is tolerating PO intake - monitor blood sugar - will follow pt Dr Ruelas
--- NOTE | 2017-01-12 15:07 | PN ---
Physical Exam: SUBJECTIVE: Patient seen and examined in the ICU. Was angry and agitated this morning. Will consult psych, as pt has extensive psyche history (anti social behaviour, ? dementia, mild MR) OBJECTIVE: will start on Seroquel 12.5 for agitation Ativan 1mg PO x 1 also given for anxiety/agitation HCP/son Nba Rodriguez ( ) - call if consents needed Vital Signs Period Temp Pulse Resp BP Sys/Franklin Pulse Ox Last 24 Hr 97.8 F-98.4 F 54-79 16-19 142-171/61-76 97 GENERAL: The patient is awake, alert, and fully oriented, in no acute distress, verbalizing generalized pain HEAD: Normal with no signs of trauma. EYES: PERRL, extraocular movements intact, sclera anicteric, conjunctiva clear. No ptosis. ENT: Ears normal, nares patent, oropharynx clear without exudates, moist mucous membranes. NECK: Trachea midline, full range of motion, supple. LUNGS: Breath sounds equal, clear to auscultation bilaterally, no wheezes, no crackles, no accessory muscle use. ABDOMEN: Soft, nontender, nondistended, normoactive bowel sounds, no guarding, no rebound, no hepatosplenomegaly, no masses. NEUROLOGICAL: Normal speech, gait not observed. PSYCH: Normal mood, normal affect. SKIN: mcbride catheter and right neph. tube Laboratory Results - last 24 hr 01/11/17 01/11/17 01/12/17 11:50 20:34 05:15 WBC RBC Hgb Hct MCV MCH MCHC RDW Plt Count MPV Sodium 145 Potassium 3.6 Chloride 114 H Carbon Dioxide 24 Anion Gap 7 L BUN 34 H Creatinine 1.7 H POC Glucometer > [phone] Random Glucose 53 L D Calcium 8.8 01/12/17 01/12/17 01/12/17 05:15 06:48 11:43 WBC 3.6 L RBC 3.22 L Hgb 9.8 L Hct 29.0 L MCV 89.9 MCH 30.3 MCHC 33.7 RDW 15.6 Plt Count 198 MPV 7.4 L Sodium Potassium Chloride Carbon Dioxide Anion Gap BUN Creatinine POC Glucometer 71.52939 [phone] Random Glucose Calcium Active Medications Generic Name Dose Route Start Last Admin Trade Name Freq PRN Reason Stop Dose Admin Bisacodyl 10 mg 01/12/17 13:28 Dulcolax Suppository - RC PRN PRN CONSTIPATION Clopidogrel Bisulfate 75 mg 01/13/17 10:00 Plavix - PO DAILY [facility] Docusate Sodium 300 mg 01/12/17 13:28 Colace Liquid - PO DAILY PRN CONSTIPATION Heparin Sodium (Porcine) 5,000 unit 01/12/17 22:00 Heparin - SQ BID [facility] Ertapenem 0.5 gm/ Sodium 50 mls @ 100 mls/hr 01/13/17 10:00 Chloride IVPB DAILY [facility] Protocol Famotidine/Sodium Chloride 50 mls @ 100 mls/hr 01/12/17 22:00 Pepcid 20 Mg Premixed Ivpb - IVPB BID [facility] Sodium Chloride 1,000 mls @ 75 mls/hr 01/12/17 13:28 Normal Saline - IV ASDIR [facility] Insulin Aspart 1 vial 01/12/17 16:30 Novolog Vial Sliding Scale - SQ ACHS [facility] Protocol Insulin Detemir 5 units 01/12/17 22:00 Levemir Vial SQ HS [facility] Levothyroxine Sodium 100 mcg/ 175 mcg 01/13/17 07:00 Levothyroxine Sodium 75 mcg PO DAILY@0700 [facility] Metoprolol Tartrate 12.5 mg 01/12/17 22:00 Lopressor - PO BID [facility] Oxycodone/Acetaminophen 2 combo 01/12/17 11:27 01/12/17 11:33 Percocet 5/325 - PO 2 combo Q6H PRN Administration PAIN LEVEL 6-10 Quetiapine Fumarate 12.5 mg 01/12/17 10:45 01/12/17 11:34 Seroquel - PO 12.5 mg DAILY [facility] Administration ASSESSMENT/PLAN: Patient is a 66 year old male with a significant pasts medical history of HTN, dementia/psych disorder, h/o CVA on Plavix, IDDM, h/o DVTs with IVC filter, hypothyroidism, basal cell carcinoma, CKD, newly diagnosed prostate adenocarcinoma obstructing bilateral ureters, s/p left ureteral JJ stent (2015), s/p right nephrostomy tube replacement (01/09/17 - ), and paraplegia. : Acute Kidney injury/Acute on chronic renal insufficiency Bilateral ureteral obstruction secondary to prostate adenocarcinoma A/P: right nephrostomy tube replacement on 01/09, +mcbride cath for left kidney urine drainage making urine, monitor intake and output Creatinine improving Renal following Continue ertapenem Prostate adenocarcinoma A/P: 01/09 CTAP shows right hydronephrosis with ureter dilated to pelvic region, no stones; left renal stent, non-obstructing nephrolithiasis Urology following, will need outpatient workup Endocrine: DKA - now resolved A/P: Novolog sliding scale adjusted for tighter control Elevated blood sugars today, added Levemir @ HS but cut back to 5 units as blood sugars low this morning Psyche: Psyche disorder/dementia - chronic A/P: Patient has long history of anti-social behavior and has been under psychiatric care Has multiple angry outbursts and often refusing glucose checks and other cares Currently on no home medications for agitation Started on seroquel 12.5mg daily, titrate as needed for agitation Psyche evaluation ID: A/P: + urine cultures with Klebsiella ESBL UTI Low grade temps on 01/10, on Ertapenem WBC down trending Contact precautions ID following Hematology: DVT history A/P: Has IVC filter F.E.N. Fluids: Tolerating PO, off IVF Electrolytes; monitor Disposition: Continues to require inpatient hospitalization. Full code. Visit type - Emergency Visit Emergency Visit: Yes ED Registration Date: 01/07/17 Care time: The patient presented to the Emergency Department on the above date and was hospitalized for further evaluation of their emergent condition. - New Patient This patient is new to me today: No - Critical Care Critical Care patient: No - Discharge Referral Referred to [facility] Med [facility].C[facility] No
[2017-01-12] MEDS ORDERED: LORazepam 2 MG/ML SDV VIAL IM PRN (17:35)
[2017-01-12] MEDS ORDERED: amLODIPine BESYLATE 10 MG TABLET (FP) PO ONE (18:25)
[2017-01-12] MEDS ORDERED: METOPROLOL TARTRATE 25 MG TABLET (FP) PO ONE (18:25)
[2017-01-12] MEDS ORDERED: INSULIN (NOVOLOG) ASPART 100 UNITS/ML 10ML VIAL ONE (21:08)
[2017-01-12] MEDS ORDERED: CHLORHEXIDINE GLUCONATE 4% CLEANSER FOR DECOLONIZATION TP SCH (22:00)
[2017-01-12] MEDS ORDERED: MUPIROCIN 2% TOPICAL OINTMENT FOR DECOLONIZATION NS SCH (22:00)
[2017-01-12] MEDS ORDERED: FAMOTIDINE 20 MG/50 ML IVPB 50 ML IVPB SCH (22:00)
[2017-01-12] MEDS ORDERED: INSULIN DETEMIR 100 UNITS/ML MDV SQ SCH ×2 (22:00)
[2017-01-12] MEDS ORDERED: METOPROLOL TARTRATE 25 MG TABLET (FP) PO SCH (22:00)
[2017-01-13] MEDS ORDERED: LEVOTHYROXINE NA 75 MCG TABLET (FP) ONE (06:19)
[2017-01-13] MEDS ORDERED: LEVOTHYROXINE NA 100 MCG TABLET (FP) ONE (06:19)
[2017-01-13] MEDS: INSULIN SLIDING SCALE (NOVOLOG) 1 VIAL SQ SCH ×4 (06:41→21:49)
[2017-01-13] MEDS: LEVOTHYROXINE 100 MCG, LEVOTHYROXINE 75 MCG PO SCH (06:42)
--- NOTE | 2017-01-13 09:39 | PN ---
Progress Note, Physician Chief Complaint: UTI History of Present Illness: 66 year old male with extensive past medical history s/p R nephrostomy tube replacement on 01/09 and L ureteral JJ stent placed on 11/2015 admitted to the hospital with (+) urine cultures growing ESBL Klebsiella. As of yesterday, his white count has been trending down (3.6 on 01/12) and no fever. Today, patient is refusing vital signs, labs, and medications. He states that he is tired of being in the hospital and just wants to leave. Denies fever, chills, chest pain , SOB, cough, abdominal pain, suprapubic pain. After discussing the importance of treatment, patient is amenable to receiving oral medication, but is still refusing IV. Microbiology 01/08/17 11:00 Urine - Urine Wolfe Urine Culture - Final Klebsiella Pneumoniae - Esbl 01/08/17 10:30 Blood - Peripheral Venous Blood Culture - Final NO GROWTH AFTER 5 DAYS INCUBATION 01/08/17 10:20 Blood - Peripheral Venous Blood Culture - Final NO GROWTH AFTER 5 DAYS INCUBATION - Current Medication List Current Medications: Active Medications Amlodipine Besylate (Norvasc -) 5 mg PO DAILY [facility] Bisacodyl (Dulcolax Suppository -) 10 mg RC PRN PRN PRN Reason: CONSTIPATION Clopidogrel Bisulfate (Plavix -) 75 mg PO DAILY [facility] Docusate Sodium (Colace Liquid -) 300 mg PO DAILY PRN PRN Reason: CONSTIPATION Heparin Sodium (Porcine) (Heparin -) 5,000 unit SQ BID [facility] Last Admin: 01/12/17 21:16 Dose: 5,000 unit Ertapenem 0.5 gm/ Sodium (Chloride) 50 mls @ 100 mls/hr IVPB DAILY [facility] PRN Reason: Protocol Insulin Aspart (Novolog Vial Sliding Scale -) 1 vial SQ ACHS [facility] PRN Reason: Protocol Last Admin: 01/13/17 06:41 Dose: Not Given Insulin Detemir (Levemir Vial) 5 units SQ HS [facility] Last Admin: 01/12/17 21:18 Dose: 5 units Levothyroxine Sodium 100 mcg/ (Levothyroxine Sodium 75 mcg) 175 mcg PO DAILY@ 0700 [facility] Last Admin: 01/13/17 06:42 Dose: 175 mcg Lorazepam (Ativan Injection -) 2 mg IM Q12H PRN PRN Reason: ACUTE AGITATION Metoprolol Tartrate (Lopressor -) 25 mg PO BID [facility] Last Admin: 01/12/17 21:17 Dose: 25 mg Oxycodone/Acetaminophen (Percocet 5/325 -) 2 combo PO Q6H PRN PRN Reason: PAIN LEVEL 6-10 Last Admin: 01/12/17 18:42 Dose: 2 combo Pantoprazole Sodium (Protonix -) 40 mg PO DAILY [facility] Quetiapine Fumarate (Seroquel -) 12.5 mg PO DAILY [facility] Last Admin: 01/12/17 11:34 Dose: 12.5 mg - Objective Vital Signs: Vital Signs Temperature 98.2 F 01/12/17 22:00 Pulse Rate 62 01/13/17 01:00 Respiratory Rate 20 01/13/17 01:00 Blood Pressure 151/77 01/13/17 01:00 O2 Sat by Pulse Oximetry (%) 94 L 01/12/17 21:00 Constitutional: Yes: No Distress, Calm, Thin Eyes: Yes: Conjunctiva Clear, EOM Intact HENT: Yes: Atraumatic, Normocephalic, Other (Poor dentition, teeth present) Neck: Yes: Supple, Trachea Midline Cardiovascular: Yes: Regular Rate and Rhythm Respiratory: Yes: Regular, CTA Bilaterally Gastrointestinal: Yes: Normal Bowel Sounds, Soft Genitourinary: Yes: Wolfe Present (Draining clear yellow urine with significant white sediment), Other (R nephrostomy tube in place draining clear yellow fluid with white sediment) Musculoskeletal: Yes: WNL Extremities: Yes: WNL Edema: No Peripheral Pulses WNL: Yes Integumentary: Yes: WNL Neurological: Yes: Alert, Oriented ...Motor Strength: WNL Psychiatric: Yes: Alert, Oriented Labs: CBC, BMP 01/12/17 05:15 INR, PTT INR 1.01 (0.82-1.09) 01/09/17 05:20 Problem List - Problems (1) SHARMILA (acute kidney injury) Code(s): N17.9 - ACUTE KIDNEY FAILURE, UNSPECIFIED (2) Nephrostomy complication Code(s): N99.528 - OTHER COMP OF INCONTINENT EXTERNAL STOMA OF URINARY TRACT Assessment/Plan 66 year old male recent pmh of R nephrostomy tube replacement with ESBL Klebsiella UTI on ertapenem. Pt noncompliant and refusing vitals, labs, or treatment on the floors. Klebsiell ESBL UTI -continue ertapenem treatment if patient is willing and compliant -pt is leukopenic (last WBC 3.6), repeat labs in AM if pt is compliant
[2017-01-13] MEDS ORDERED: amLODIPine BESYLATE 5 MG TABLET (FP) PO SCH (10:00)
[2017-01-13] MEDS: HEPARIN NA (PORCINE) 5,000 UNITS/ML 1ML VIAL SQ SCH ×2 (10:40→21:46)
[2017-01-13] MEDS: METOPROLOL TARTRATE 25 MG TABLET (FP) PO SCH ×2 (10:40→21:46)
[2017-01-13] MEDS: PANTOPRAZOLE 40 MG TABLET (FP) PO SCH (10:40)
[2017-01-13] MEDS: ERTAPENEM SODIUM 0.5 GM in SODIUM CHLORIDE 50 ML IVPB SCH (10:41)
[2017-01-13] MEDS: CLOPIDOGREL BISULFATE 75 MG TABLET (FP) PO SCH (10:41)
[2017-01-13] MEDS: QUEtiapine FUMARATE 25 MG TABLET (FP) PO SCH (10:43)
--- NOTE | 2017-01-13 11:51 | PN ---
Teaching Attending Note Name of Resident: Stew Maria ATTENDING PHYSICIAN STATEMENT I saw and evaluated the patient. I reviewed the resident's note and discussed the case with the resident. I agree with the resident's findings and plan as documented. SUBJECTIVE:Refusing labs and antibiotics meds !! OBJECTIVE: ASSESSMENT AND PLAN: Selected Entries 01/12/17 01/13/17 22:00 01:00 Temperature 98.2 F Pulse Rate 62 Respiratory 20 Rate Blood Pressure 151/77 Microbiology 01/08/17 11:00 Urine - Urine Wolfe Urine Culture - Final Klebsiella Pneumoniae - Esbl 01/08/17 10:30 Blood - Peripheral Venous Blood Culture - Final NO GROWTH AFTER 5 DAYS INCUBATION 01/08/17 10:20 Blood - Peripheral Venous Blood Culture - Final NO GROWTH AFTER 5 DAYS INCUBATION Laboratory Tests 01/12/17 01/12/17 05:15 05:15 WBC 3.6 L Plt Count 198 BUN 34 H Creatinine 1.7 H Assessment UTI ESBL Klebs Post nephrostomy change Plan Continue current antibiotic assuming he will allow Moniter WBC ( leukopenia) Robb HERNANDEZ
--- NOTE | 2017-01-13 14:41 | CON.PSY ---
Psychiatry Consult Chief Complaint: Patient seen for caute agitation and pulling out tubes. History of Dementia, CVA etc. Symptoms: reports: Impaired Concentration, Memory Impairment, Irritability, Disorganized/Disruptive Thoughts - Previous Psychiatric Treatment Outpatient: None Inpatient: None - Previous Substance Abuse Treatment Outpatient: None Inpatient: None - Current Medications Current Medications: Active Medications Amlodipine Besylate (Norvasc -) 5 mg PO DAILY [facility] Last Admin: 01/13/17 10:40 Dose: 5 mg Bisacodyl (Dulcolax Suppository -) 10 mg RC PRN PRN PRN Reason: CONSTIPATION Clopidogrel Bisulfate (Plavix -) 75 mg PO DAILY [facility] Last Admin: 01/13/17 10:41 Dose: 75 mg Docusate Sodium (Colace Liquid -) 300 mg PO DAILY PRN PRN Reason: CONSTIPATION Heparin Sodium (Porcine) (Heparin -) 5,000 unit SQ BID [facility] Last Admin: 01/13/17 10:40 Dose: Not Given Ertapenem 0.5 gm/ Sodium (Chloride) 50 mls @ 100 mls/hr IVPB DAILY [facility] PRN Reason: Protocol Last Admin: 01/13/17 10:41 Dose: Not Given Insulin Aspart (Novolog Vial Sliding Scale -) 1 vial SQ ACHS [facility] PRN Reason: Protocol Last Admin: 01/13/17 11:40 Dose: 10 units Levothyroxine Sodium 100 mcg/ (Levothyroxine Sodium 75 mcg) 175 mcg PO DAILY@ 0700 [facility] Last Admin: 01/13/17 06:42 Dose: 175 mcg Lorazepam (Ativan Injection -) 2 mg IM Q12H PRN PRN Reason: ACUTE AGITATION Metoprolol Tartrate (Lopressor -) 25 mg PO BID [facility] Last Admin: 01/13/17 10:40 Dose: 25 mg Oxycodone/Acetaminophen (Percocet 5/325 -) 2 combo PO Q6H PRN PRN Reason: PAIN LEVEL 6-10 Last Admin: 01/13/17 10:49 Dose: 2 combo Pantoprazole Sodium (Protonix -) 40 mg PO DAILY [facility] Last Admin: 01/13/17 10:40 Dose: Not Given Quetiapine Fumarate (Seroquel -) 12.5 mg PO DAILY [facility] Last Admin: 01/13/17 10:43 Dose: 12.5 mg - Allergies Allergies: Allergies Allergy/AdvReac Type Severity Reaction Status Date / Time chocolate flavor Allergy Unknown Verified 01/11/17 11:42 Mopmlli-[id number] Reductase Allergy Verified 02/17/13 09:42 Inhibitor - Current Living Status Usual Living Arrangement: [facility] - Current Mental Status Evaluation Appearance: Disheveled Attitude: Belligerent - Affect Affect: Constrictive Appropriateness: Not Appropriate - Mood Mood: Irritable - Speech/Language Expressive: Coherent - Psychomotor Activity Psychomotor Activity: Agitated - Thought Process Thought Process: Loosening of Associations - Thought Content Hallucinations: Absent Delusions: Absent - Self Perception Self Perception: Depersonalization - Cognition Attention: Alert Memory, Immediate Recall: Impaired Memory, Short Term: 1/3 Memory, Remote with Promptin/3 - Concentration Serial Sevens Intact: No Simple Calculations Intact: No - Abstraction Proverb Interpretation: Impaired Judgement: Moderately Impaired - Insight Insight: Impaired - Impulse Control Impulse Control: Moderately Impaired - Suicidal Ideation Suicidal Ideation: No - Homicidal Ideation Homicidal Ideation: No Assessment/Plan Continue [facility] Psych meds.
--- NOTE | 2017-01-13 15:02 | PN ---
Progress Note, Physician History of Present Illness: Pt seen and examined. He refused labs today. - Current Medication List Current Medications: Active Medications Amlodipine Besylate (Norvasc -) 5 mg PO DAILY [facility] Last Admin: 01/13/17 10:40 Dose: 5 mg Bisacodyl (Dulcolax Suppository -) 10 mg RC PRN PRN PRN Reason: CONSTIPATION Clopidogrel Bisulfate (Plavix -) 75 mg PO DAILY [facility] Last Admin: 01/13/17 10:41 Dose: 75 mg Docusate Sodium (Colace Liquid -) 300 mg PO DAILY PRN PRN Reason: CONSTIPATION Heparin Sodium (Porcine) (Heparin -) 5,000 unit SQ BID [facility] Last Admin: 01/13/17 10:40 Dose: Not Given Ertapenem 0.5 gm/ Sodium (Chloride) 50 mls @ 100 mls/hr IVPB DAILY [facility] PRN Reason: Protocol Last Admin: 01/13/17 10:41 Dose: Not Given Insulin Aspart (Novolog Vial Sliding Scale -) 1 vial SQ ACHS [facility] PRN Reason: Protocol Last Admin: 01/13/17 11:40 Dose: 10 units Levothyroxine Sodium 100 mcg/ (Levothyroxine Sodium 75 mcg) 175 mcg PO DAILY@ 0700 [facility] Last Admin: 01/13/17 06:42 Dose: 175 mcg Lorazepam (Ativan Injection -) 2 mg IM Q12H PRN PRN Reason: ACUTE AGITATION Metoprolol Tartrate (Lopressor -) 25 mg PO BID [facility] Last Admin: 01/13/17 10:40 Dose: 25 mg Oxycodone/Acetaminophen (Percocet 5/325 -) 2 combo PO Q6H PRN PRN Reason: PAIN LEVEL 6-10 Last Admin: 01/13/17 10:49 Dose: 2 combo Pantoprazole Sodium (Protonix -) 40 mg PO DAILY [facility] Last Admin: 01/13/17 10:40 Dose: Not Given Quetiapine Fumarate (Seroquel -) 12.5 mg PO DAILY [facility] Last Admin: 01/13/17 10:43 Dose: 12.5 mg - Objective Vital Signs: Vital Signs Temperature 97.8 F 01/13/17 10:35 Pulse Rate 79 01/13/17 10:35 Respiratory Rate 18 01/13/17 10:35 Blood Pressure 162/78 01/13/17 10:35 O2 Sat by Pulse Oximetry (%) 98 01/13/17 09:00 Constitutional: Yes: Calm Eyes: Yes: Conjunctiva Clear HENT: Yes: Atraumatic Neck: Yes: Supple Cardiovascular: Yes: S1, S2 Respiratory: Yes: CTA Bilaterally Gastrointestinal: Yes: Soft Genitourinary: Yes: Wolfe Present, Other (right nephrostomy) Edema: No Neurological: Yes: Oriented Psychiatric: Yes: Oriented Labs: CBC, BMP 01/12/17 05:15 01/13/17 07:45 INR, PTT INR 1.01 (0.82-1.09) 01/09/17 05:20 Problem List - Problems (1) SHARMILA (acute kidney injury) Code(s): N17.9 - ACUTE KIDNEY FAILURE, UNSPECIFIED (2) Diabetic ketoacidosis with coma Code(s): E13.11 - OTH DIABETES MELLITUS WITH KETOACIDOSIS WITH COMA (3) Nephrostomy complication Code(s): N99.528 - OTHER COMP OF INCONTINENT EXTERNAL STOMA OF URINARY TRACT Assessment/Plan Current Medications Generic Name Dose Route Start Last Admin Trade Name Freq PRN Reason Stop Dose Admin Amlodipine Besylate 5 mg 01/13/17 10:00 01/13/17 10:40 Norvasc - PO 5 mg DAILY [facility] Administration Bisacodyl 10 mg 01/12/17 13:28 Dulcolax Suppository - RC PRN PRN CONSTIPATION Clopidogrel Bisulfate 75 mg 01/13/17 10:00 01/13/17 10:41 Plavix - PO 75 mg DAILY [facility] Administration Docusate Sodium 300 mg 01/12/17 13:28 Colace Liquid - PO DAILY PRN CONSTIPATION Heparin Sodium (Porcine) 5,000 unit 01/12/17 22:00 01/13/17 10:40 Heparin - SQ Not Given BID [facility] Ertapenem 0.5 gm/ Sodium 50 mls @ 100 mls/hr 01/13/17 10:00 01/13/17 10:41 Chloride IVPB Not Given DAILY [facility] Protocol Insulin Aspart 1 vial 01/12/17 16:30 01/13/17 11:40 Novolog Vial Sliding Scale - SQ 10 units ACHS [facility] Administration Protocol Levothyroxine Sodium 100 mcg/ 175 mcg 01/13/17 07:00 01/13/17 06:42 Levothyroxine Sodium 75 mcg PO 175 mcg DAILY@0700 [facility] Administration Lorazepam 2 mg 01/12/17 17:35 Ativan Injection - IM Q12H PRN ACUTE AGITATION Metoprolol Tartrate 25 mg 01/12/17 22:00 01/13/17 10:40 Lopressor - PO 25 mg BID [facility] Administration Oxycodone/Acetaminophen 2 combo 01/12/17 11:27 01/13/17 10:49 Percocet 5/325 - PO 2 combo Q6H PRN Administration PAIN LEVEL 6-10 Pantoprazole Sodium 40 mg 01/13/17 10:00 01/13/17 10:40 Protonix - PO Not Given DAILY [facility] Quetiapine Fumarate 12.5 mg 01/12/17 10:45 01/13/17 10:43 Seroquel - PO 12.5 mg DAILY [facility] Administration Impression 1. SHARMILA 2. DKA 3. hyperkalemia 4. ckd with baseline rn practitioner 2.2 5. obstructive uropathy with nephrostomy tube dislodged 6. dementia 7. developemental delay 8. hypothyroidism 9. DM 10. acidosis 11. respiratory failure - acute requiring intubation 12. prostate cancer 13. s/p IVC filter Plan - pt refused labs and says he does not want any more blood-draws - recommend checking BMP at least periodically - discussed care and mortality/morbidity - monitor urine ouput - urology follow up - will follow PRN - monitor blood sugar Dr Ruelas
--- NOTE | 2017-01-13 16:41 | CON.CARD ---
Consult Consult Specialty:: Cardiology Referred by:: Hospitalist Reason for Consultation:: Cardiac evaluation - History of Present Illness History of Present Illness: Patient is a 66 year old male with underlying history of dementia, history of cerebrovascular disese, IDDM, DVTs, hypothyroidism, history of basal cell CA and urinary retention with bilateral nephrostomy tubes. He was brought in after nephrostomy tube came out in nursing facility. During this hospitalization, he developed DKA and then was in ICU after being intubated with respiratory failure. He is back on the floor and today cardiology was consulted due to elevated blood pressure. He denies chest pain, shortness of breath or palpitations. He denies paroxysmal nocturnal dyspnea or orthopnea. He denies fever or chills. He denies headache or lightheadedness. 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 has hardware on CXR in cervical spine. nephrostomy tubes - Alcohol/Substance Use Hx Alcohol Use: No - Smoking History Smoking history: Never smoked Have you smoked in the past 12 months: No Aproximately how many cigarettes per day: 0 - Social History Usual Living Arrangement: Residential Home Medications - Allergies Allergies/Adverse Reactions: Allergies Allergy/AdvReac Type Severity Reaction Status Date / Time chocolate flavor Allergy Unknown Verified 01/11/17 11:42 Anufbqs-Yyh-Lzh Reductase Allergy Verified 02/17/13 09:42 Inhibitor - Home Medications Home Medications: Ambulatory Orders Carboxymethylcellulose Sodium [Refresh Plus] 1 each OP DAILY 01/07/17 Clopidogrel Bisulfate [Plavix -] 75 mg PO DAILY 01/07/17 Insulin Glargine,Hum.rec.anlog [Lantus (nf)] 12 units SQ HS 01/07/17 Insulin Sliding Scale [Novolog Vial Sliding Scale -] 0 units SQ TIDAC 01/07/17 Levothyroxine [Synthroid -] 175 mcg PO DAILY 01/07/17 Metoprolol Succinate [Toprol Xl -] 25 mg PO PRN 01/07/17 Metoprolol Tartrate [Lopressor -] 12.5 mg PO BID 01/07/17 Oxycodone HCl/Acetaminophen [Percocet 5-325 mg Tablet] 2 tab PO Q6H 01/07/17 Ranitidine HCl [Zantac] 150 mg PO DAILY 01/07/17 Family Disease History - Family Disease History Family History: Unable to Obtain Review of Systems - Review of Systems Constitutional: denies: Chills, Fever Cardiovascular: denies: Chest Pain, Palpitations, Shortness of Breath Respiratory: denies: Cough, Hemoptysis, Orthopnea, PND, SOB, SOB on Exertion Gastrointestinal: denies: Abdominal Pain, Constipation, Diarrhea, Melena, Nausea , Rectal Bleeding, Vomiting Neurological: reports: Weakness. denies: Dizziness, Headache, Syncope, Tremors Vital Signs: Vital Signs Temperature 97.8 F 01/13/17 10:35 Pulse Rate 79 01/13/17 10:35 Respiratory Rate 18 01/13/17 10:35 Blood Pressure 162/78 01/13/17 10:35 O2 Sat by Pulse Oximetry (%) 98 01/13/17 09:00 Neck: Yes: Supple Respiratory: Yes: CTA Bilaterally Gastrointestinal: Yes: Normal Bowel Sounds, Soft. No: Tenderness Cardiovascular: Yes: Regular Rate and Rhythm JVD: No Carotid Bruit: No PMI: Non-Displaced Heart Sounds: Yes: S1, S2. No: Gallop Murmur: No: Systolic Murmur Edema: No - Other Data Labs, Other Data: CBC, BMP 01/12/17 05:15 01/13/17 07:45 INR, PTT INR 1.01 (0.82-1.09) 01/09/17 05:20 Problem List - Problems (1) SHARMILA (acute kidney injury) Code(s): N17.9 - ACUTE KIDNEY FAILURE, UNSPECIFIED (2) Diabetic ketoacidosis with coma Code(s): E13.11 - OTH DIABETES MELLITUS WITH KETOACIDOSIS WITH COMA (3) Nephrostomy complication Code(s): N99.528 - OTHER COMP OF INCONTINENT EXTERNAL STOMA OF URINARY TRACT (4) HTN (hypertension) Code(s): I10 - ESSENTIAL (PRIMARY) HYPERTENSION (5) Diabetes mellitus Code(s): E11.9 - TYPE 2 DIABETES MELLITUS WITHOUT COMPLICATIONS Assessment/Plan 1. Hypertension 2. Diabetes mellitus 3. Organic brain/dementia/developmental delay (mild) 4. Recent DKA 5. Post respiratory failure requiring intubation 6. Acute on CKD 7. Obstructive uropathy nephrostomy tube insertion PLAN: 1. Continue Metoprolol Tartrate and Amlodipine (titrate accordingly) 2. Continue Plavix 3. Continue antibiotic coverage 4. Monitor renal function and electrolytes 5. Transthoracic echocardiography to assess LV and valvular function Further plans are to follow Bronson Monzon MD
--- NOTE | 2017-01-13 17:18 | PN ---
Physical Exam: SUBJECTIVE: Patient seen and examined, continues to refuse IVs, medications and glucs checks. OBJECTIVE: I spoke to patient's son who asked that I get an oncology consult for prostate adenocarcinoma Hypoglycemic again this morning, stopped Levemir Monitor blood sugars, ac/hs Patient is refusing IVs, blood work and antibiotics despite staff stressing importance. I also spoke to patient but he is still refusing. I informed patient's son about patient's refusal and asked him to speak to father regarding compliance. Blood pressures improved slightly but still elevated, Toprol increased yesterday. Cardiology consulted. Vital Signs Period Temp Pulse Resp BP Sys/Franklin Pulse Ox Last 24 Hr 97.8 F-98.2 F 62-79 18-20 151-191/77-103 94-98 GENERAL: The patient is awake, alert, and fully oriented, in no acute distress, verbalizing generalized pain HEAD: Normal with no signs of trauma. EYES: PERRL, extraocular movements intact, sclera anicteric, conjunctiva clear. No ptosis. ENT: Ears normal, nares patent, oropharynx clear without exudates, moist mucous membranes. NECK: Trachea midline, full range of motion, supple. LUNGS: Breath sounds equal, clear to auscultation bilaterally, no wheezes, no crackles, no accessory muscle use. ABDOMEN: Soft, nontender, nondistended, normoactive bowel sounds, no guarding, no rebound, no hepatosplenomegaly, no masses. NEUROLOGICAL: Normal speech, gait not observed. PSYCH: Normal mood, normal affect. SKIN: mcbride catheter and right neph. tube Laboratory Results - last 24 hr 01/12/17 01/13/17 01/13/17 21:12 05:54 06:40 Sodium Potassium Chloride Carbon Dioxide Anion Gap BUN Creatinine Creat Clearance w eGFR POC Glucometer 339 34 76 Random Glucose Calcium Total Bilirubin AST ALT Alkaline Phosphatase Total Protein Albumin TSH 01/13/17 01/13/17 01/13/17 07:45 07:45 11:36 Sodium Cancelled Potassium Cancelled Chloride Cancelled Carbon Dioxide Cancelled Anion Gap Cancelled BUN Cancelled Creatinine Cancelled Creat Clearance w eGFR Cancelled POC Glucometer 307 Random Glucose Cancelled Calcium Cancelled Total Bilirubin Cancelled AST Cancelled ALT Cancelled Alkaline Phosphatase Cancelled Total Protein Cancelled Albumin Cancelled TSH Cancelled Active Medications Generic Name Dose Route Start Last Admin Trade Name Zeb PRN Reason Stop Dose Admin Amlodipine Besylate 5 mg 01/13/17 10:00 01/13/17 10:40 Norvasc - PO 5 mg DAILY [facility] Administration Bisacodyl 10 mg 01/12/17 13:28 Dulcolax Suppository - RC PRN PRN CONSTIPATION Clopidogrel Bisulfate 75 mg 01/13/17 10:00 01/13/17 10:41 Plavix - PO 75 mg DAILY [facility] Administration Docusate Sodium 300 mg 01/12/17 13:28 Colace Liquid - PO DAILY PRN CONSTIPATION Heparin Sodium (Porcine) 5,000 unit 01/12/17 22:00 01/13/17 10:40 Heparin - SQ Not Given BID [facility] Ertapenem 0.5 gm/ Sodium 50 mls @ 100 mls/hr 01/13/17 10:00 01/13/17 10:41 Chloride IVPB Not Given DAILY [facility] Protocol Insulin Aspart 1 vial 01/13/17 17:17 Novolog Vial Sliding Scale - SQ ACHS [facility] Protocol Levothyroxine Sodium 100 mcg/ 175 mcg 01/13/17 07:00 01/13/17 06:42 Levothyroxine Sodium 75 mcg PO 175 mcg DAILY@0700 [facility] Administration Lorazepam 2 mg 01/12/17 17:35 Ativan Injection - IM Q12H PRN ACUTE AGITATION Metoprolol Tartrate 25 mg 01/12/17 22:00 01/13/17 10:40 Lopressor - PO 25 mg BID [facility] Administration Oxycodone/Acetaminophen 2 combo 01/12/17 11:27 01/13/17 16:54 Percocet 5/325 - PO 2 combo Q6H PRN Administration PAIN LEVEL 6-10 Pantoprazole Sodium 40 mg 01/13/17 10:00 01/13/17 10:40 Protonix - PO Not Given DAILY [facility] Quetiapine Fumarate 12.5 mg 01/12/17 10:45 01/13/17 10:43 Seroquel - PO 12.5 mg DAILY [facility] Administration ASSESSMENT/PLAN: Patient is a 66 year old male with a significant pasts medical history of HTN, dementia/psych disorder, h/o CVA on Plavix, IDDM, h/o DVTs with IVC filter, hypothyroidism, basal cell carcinoma, CKD, newly diagnosed prostate adenocarcinoma obstructing bilateral ureters, s/p left ureteral JJ stent (2015), s/p right nephrostomy tube replacement (01/09/17 - ), and paraplegia. : Acute Kidney injury/Acute on chronic renal insufficiency Bilateral ureteral obstruction secondary to prostate adenocarcinoma A/P: right nephrostomy tube replacement on 01/09, +mcbride cath for left kidney urine drainage making urine, monitor intake and output refused labs, unable to assess bun/creat Refused IVs, unable to administer ertapenem Oncology: Prostate adenocarcinoma A/P: 01/09 CTAP shows right hydronephrosis with ureter dilated to pelvic region, no stones; left renal stent, non-obstructing nephrolithiasis Urology following, will need outpatient workup patient son asked for oncology consult Cardiology: Hypertensive Urgency A/P: BP elevated yestereday, slight improvement today but not yet at goal Lopressor increased to 25mg BID, Novasc 5mg added Cardiology consulted Endocrine: DKA - now resolved, refusing labs A/P: Episodes of hypoglycemia, stopped Levemir, monitor blood sugars ac/hs Psyche: Psyche disorder/dementia - chronic A/P: Patient has long history of anti-social behavior and has been under psychiatric care Has multiple angry outbursts and often refusing glucose checks and other cares Started on seroquel 12.5mg daily, titrate as needed for agitation Psyche following ID: A/P: + urine cultures with Klebsiella ESBL UTI Low grade temps on 01/10, on Ertapenem Contact precautions ID following, antibiotics not given as pt continues to refuse IV placement Hematology: DVT history A/P: Has IVC filter F.E.N. Fluids: Tolerating PO Electrolytes; monitor Disposition: Continues to require inpatient hospitalization. Full code. Visit type - Emergency Visit Emergency Visit: Yes ED Registration Date: 01/07/17 Care time: The patient presented to the Emergency Department on the above date and was hospitalized for further evaluation of their emergent condition. - New Patient This patient is new to me today: No - Critical Care Critical Care patient: No - Discharge Referral Referred to [facility] No
--- NOTE | 2017-01-13 20:01 | CONSULT ---
Consult - text type - Consultation Consultation Note: Patient seen and examined Very limited history. Single worsds, incoherent. 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 has hardware on CXR in cervical spine. nephrostomy tubes - Alcohol/Substance Use Hx Alcohol Use: No - Smoking History Smoking history: Never smoked Have you smoked in the past 12 months: No Aproximately how many cigarettes per day: 0 - Social History Usual Living Arrangement: [facility] Home Medications - Allergies Allergies/Adverse Reactions: Allergies Allergy/AdvReac Type Severity Reaction Status Date / Time chocolate flavor Allergy Unknown Verified 01/11/17 11:42 [id number]-[id number] Reductase Allergy Verified 02/17/13 09:42 Inhibitor - Home Medications Home Medications: Ambulatory Orders Carboxymethylcellulose Sodium [Refresh Plus] 1 each OP DAILY 01/07/17 Clopidogrel Bisulfate [Plavix -] 75 mg PO DAILY 01/07/17 Insulin Glargine,Hum.rec.anlog [Lantus (nf)] 12 units SQ HS 01/07/17 Insulin Sliding Scale [Novolog Vial Sliding Scale -] 0 units SQ TIDAC 01/07/17 Levothyroxine [Synthroid -] 175 mcg PO DAILY 01/07/17 Metoprolol Succinate [Toprol Xl -] 25 mg PO PRN 01/07/17 Metoprolol Tartrate [Lopressor -] 12.5 mg PO BID 01/07/17 Oxycodone HCl/Acetaminophen [Percocet 5-325 mg Tablet] 2 tab PO Q6H 01/07/17 Ranitidine HCl [Zantac] 150 mg PO DAILY 01/07/17 Vital Signs: Vital Signs Temperature 97.8 F 01/13/17 10:35 Pulse Rate 79 01/13/17 10:35 Respiratory Rate 18 01/13/17 10:35 Blood Pressure 162/78 01/13/17 10:35 O2 Sat by Pulse Oximetry (%) 98 01/13/17 09:00 Abnormal Lab Results 01/15/17 01/15/17 06:00 06:00 WBC 3.7 L D RBC 3.24 L Hgb 9.7 L Hct 29.1 L MPV 6.9 L Eosinophils % 10.5 H BUN 22 H Creatinine 1.4 H Random Glucose 179 H AST 5 L D Albumin 2.5 L A/P 66 year old male with pmhx of HTN, dementia/psych disorder, h/o CVA on Plavix, IDDM, h/o DVTs with IVC filter, hypothyroidism, basal cell carcinoma, CKD, newly diagnosed prostate adenocarcinoma obstructing bilateral ureters, s/p left ureteral JJ stent (11/2015), admitted with dislodged right nephrostomy tube, and paraplegia. Had resp. failure? sepsis, resistant klebsiella s/p intubation prostate cancer,poor performance status, multiple comorbidities will discuss with family palliative care consult will follow
[2017-01-13] MEDS ORDERED: INSULIN (NOVOLOG) ASPART 100 UNITS/ML 10ML VIAL ONE (21:48)
[2017-01-14] MEDS ORDERED: LEVOTHYROXINE NA 100 MCG TABLET (FP) ONE ×2 (05:55→11:51)
[2017-01-14] MEDS ORDERED: LEVOTHYROXINE NA 75 MCG TABLET (FP) ONE (05:55)
[2017-01-14] MEDS: LEVOTHYROXINE 100 MCG, LEVOTHYROXINE 75 MCG PO SCH (06:01)
[2017-01-14] MEDS ORDERED: INSULIN (NOVOLOG) ASPART 100 UNITS/ML 10ML VIAL ONE (06:02)
[2017-01-14] MEDS: INSULIN SLIDING SCALE (NOVOLOG) 1 VIAL SQ SCH ×4 (06:03→21:38)
[2017-01-14 09:27] LABS: BASOPHIL 0.5 % (0-2.0); MCHC 33.3 g/dl (32.0-35.9); MEAN CELL VOLUME 90.1 fl (80-96); MEAN PLT VOLUME 7.2 fl (7.5-11.1); NEUTROPHILS 55.6 % (42.8-82.8); PLATELET COUNT 209 K/MM3 (134-434); RDW 15.3 % (11.9-15.9); WHITE BLOOD COUNT 5.9 K/mm3 (4.0-10.0)
[2017-01-14 09:51] LABS: ALBUMIN 2.3 g/dl (3.4-5.0); ANION GAP 8 (8-16); BILIRUBIN,TOTAL 0.6 mg/dL (0.2-1.0); CALCIUM 8.6 mg/dL (8.5-10.1); CO2 25 mmol/L (21-32); CREATININE 1.7 mg/dL (0.7-1.3); GLUCOSE,RANDOM 180 mg/dL (74-106); MAGNESIUM 1.9 mg/dL (1.8-2.4); SGOT/AST 7 U/L (15-37); SGPT/ALT 16 U/L (12-78); TOT PROT 6.5 g/dl (6.4-8.2)
[2017-01-14] MEDS ORDERED: PT OWN MED DRAWER 7, Y5N ONE (09:57)
[2017-01-14 10:00] LABS: ALK PHOS 105 U/L (45-117)
[2017-01-14] MEDS: ERTAPENEM SODIUM 0.5 GM in SODIUM CHLORIDE 50 ML IVPB SCH (10:14)
[2017-01-14] MEDS: HEPARIN NA (PORCINE) 5,000 UNITS/ML 1ML VIAL SQ SCH ×2 (10:14→21:39)
[2017-01-14] MEDS: CLOPIDOGREL BISULFATE 75 MG TABLET (FP) PO SCH (10:21)
[2017-01-14] MEDS: PANTOPRAZOLE 40 MG TABLET (FP) PO SCH (10:22)
[2017-01-14] MEDS ORDERED: LEVOTHYROXINE NA 100 MCG TABLET (FP) PO SCH (10:22)
[2017-01-14] MEDS: amLODIPine BESYLATE 10 MG TABLET (FP) PO SCH (10:22)
--- NOTE | 2017-01-14 10:23 | PN ---
Physical Exam: SUBJECTIVE: Patient seen and examined. Spoke to patient at bedside about allowing meds, vitals, IVs and blood draws. Patient is now in agreement. OBJECTIVE: TSH elevated, increased Synthroid, repeat levels in 6 weeks K. 3.3 repleted with K 40meq x 1 I spoke to patient's son yesterday who asked that I get an oncology consult for prostate adenocarcinoma. He is aware that urology is also following and aware of same. Vital Signs Period Temp Pulse Resp BP Sys/Franklin Pulse Ox Last 24 Hr 97.8 F-98.8 F 66-79 18-20 112-184/55-88 96 GENERAL: The patient is awake, alert, and fully oriented, in no acute distress, verbalizing generalized pain HEAD: Normal with no signs of trauma. EYES: PERRL, extraocular movements intact, sclera anicteric, conjunctiva clear. No ptosis. ENT: Ears normal, nares patent, oropharynx clear without exudates, moist mucous membranes. NECK: Trachea midline, full range of motion, supple. LUNGS: Breath sounds equal, clear to auscultation bilaterally, no wheezes, no crackles, no accessory muscle use. ABDOMEN: Soft, nontender, nondistended, normoactive bowel sounds, no guarding, no rebound, no hepatosplenomegaly, no masses. NEUROLOGICAL: Normal speech, gait not observed. PSYCH: Normal mood, normal affect. SKIN: mcbride catheter and right neph. tube Laboratory Results - last 24 hr 01/13/17 01/13/17 01/13/17 07:45 11:36 16:58 WBC RBC Hgb Hct MCV MCH MCHC RDW Plt Count MPV Neutrophils % Lymphocytes % Monocytes % Eosinophils % Basophils % Sodium Cancelled Potassium Cancelled Chloride Cancelled Carbon Dioxide Cancelled Anion Gap Cancelled BUN Cancelled Creatinine Cancelled Creat Clearance w eGFR Cancelled POC Glucometer 307 37 Random Glucose Cancelled Calcium Cancelled Magnesium Total Bilirubin Cancelled AST Cancelled ALT Cancelled Alkaline Phosphatase Cancelled Total Protein Cancelled Albumin Cancelled TSH 01/13/17 01/13/17 01/14/17 18:03 21:46 06:00 WBC RBC Hgb Hct MCV MCH MCHC RDW Plt Count MPV Neutrophils % Lymphocytes % Monocytes % Eosinophils % Basophils % Sodium Potassium Chloride Carbon Dioxide Anion Gap BUN Creatinine Creat Clearance w eGFR POC Glucometer 110 313 386 Random Glucose Calcium Magnesium Total Bilirubin AST ALT Alkaline Phosphatase Total Protein Albumin TSH 01/14/17 01/14/17 08:55 08:55 WBC 5.9 D RBC 3.35 L Hgb 10.1 L Hct 30.2 L MCV 90.1 MCH 30.0 MCHC 33.3 RDW 15.3 Plt Count 209 MPV 7.2 L Neutrophils % 55.6 D Lymphocytes % 27.5 D Monocytes % 8.4 D Eosinophils % 8.0 H D Basophils % 0.5 Sodium 141 Potassium 3.3 L Chloride 108 H Carbon Dioxide 25 Anion Gap 8 BUN 24 H D Creatinine 1.7 H Creat Clearance w eGFR 40.53 POC Glucometer Random Glucose 180 H D Calcium 8.6 Magnesium 1.9 Total Bilirubin 0.6 D AST 7 L D ALT 16 D Alkaline Phosphatase 105 Total Protein 6.5 Albumin 2.3 L TSH 19.30 H Active Medications Generic Name Dose Route Start Last Admin Trade Name Freq PRN Reason Stop Dose Admin Amlodipine Besylate 10 mg 01/14/17 10:00 01/14/17 10:22 Norvasc - PO 10 mg DAILY [facility] Administration Bisacodyl 10 mg 01/12/17 13:28 Dulcolax Suppository - RC PRN PRN CONSTIPATION Clopidogrel Bisulfate 75 mg 01/13/17 10:00 01/14/17 10:21 Plavix - PO 75 mg DAILY [facility] Administration Docusate Sodium 300 mg 01/12/17 13:28 Colace Liquid - PO DAILY PRN CONSTIPATION Heparin Sodium (Porcine) 5,000 unit 01/12/17 22:00 01/14/17 10:14 Heparin - SQ 5,000 unit BID [facility] Administration Ertapenem 0.5 gm/ Sodium 50 mls @ 100 mls/hr 01/13/17 10:00 01/14/17 10:14 Chloride IVPB 100 mls/hr DAILY [facility] Administration Protocol Insulin Aspart 1 vial 01/13/17 17:17 01/14/17 06:03 Novolog Vial Sliding Scale - SQ 10 units ACHS [facility] Administration Protocol Levothyroxine Sodium 188 mcg 01/14/17 10:22 Synthroid - PO DAILY@0700 [facility] Lorazepam 2 mg 01/12/17 17:35 Ativan Injection - IM Q12H PRN ACUTE AGITATION Metoprolol Tartrate 25 mg 01/12/17 22:00 01/13/17 21:46 Lopressor - PO 25 mg BID [facility] Administration Oxycodone/Acetaminophen 2 combo 01/12/17 11:27 01/14/17 06:01 Percocet 5/325 - PO 2 combo Q6H PRN Administration PAIN LEVEL 6-10 Pantoprazole Sodium 40 mg 01/13/17 10:00 01/14/17 10:22 Protonix - PO 40 mg DAILY [facility] Administration Quetiapine Fumarate 12.5 mg 01/12/17 10:45 01/13/17 10:43 Seroquel - PO 12.5 mg DAILY [facility] Administration ASSESSMENT/PLAN: Patient is a 66 year old male with a significant pasts medical history of HTN, dementia/psych disorder, h/o CVA on Plavix, IDDM, h/o DVTs with IVC filter, hypothyroidism, basal cell carcinoma, CKD, newly diagnosed prostate adenocarcinoma obstructing bilateral ureters, s/p left ureteral JJ stent (2015), s/p right nephrostomy tube replacement (01/09/17 - ), and paraplegia. ID: UTI +ESBL A/P: + urine cultures with Klebsiella ESBL UTI Low grade temps on 01/10, on Ertapenem daily but pt has missed dose yesterday secondary to IV placement refusal ID following : Acute Kidney injury/Acute on chronic renal insufficiency Bilateral ureteral obstruction secondary to prostate adenocarcinoma A/P: right nephrostomy tube replacement on 01/09, +mcbride cath for left kidney urine drainage making urine, monitor intake and output renal function trending down, improving Renal following Oncology: Prostate adenocarcinoma A/P: 01/09 CTAP shows right hydronephrosis with ureter dilated to pelvic region, no stones; left renal stent, non-obstructing nephrolithiasis Urology following, patient son asked for oncology consult Cardiology: Hypertensive Urgency - BP improving A/P: BP continues to improve with increased dose of Lopressor and Novasc Cardiology following Monitor vitals Endocrine: DKA - now resolved, anion gap closed A/P: Episodes of hypoglycemia, stopped Levemir, monitor blood sugars ac/hs Labile blood sugars Psyche: Psyche disorder/dementia - chronic A/P: Patient has long history of anti-social behavior and has been under psychiatric care Has multiple angry outbursts and often refusing glucose checks and other cares Started on seroquel 12.5mg daily, titrate as needed for agitation Psyche following Hematology: DVT history A/P: Has IVC filter F.E.N. Fluids: Tolerating PO Electrolytes; monitor Disposition: Continues to require inpatient hospitalization. Full code. Visit type - Emergency Visit Emergency Visit: Yes ED Registration Date: 01/07/17 Care time: The patient presented to the Emergency Department on the above date and was hospitalized for further evaluation of their emergent condition. - New Patient This patient is new to me today: No - Critical Care Critical Care patient: No - Discharge Referral Referred to [facility] Med [facility].C.: No
[2017-01-14] MEDS: QUEtiapine FUMARATE 25 MG TABLET (FP) PO SCH (10:24)
[2017-01-14] MEDS: METOPROLOL TARTRATE 25 MG TABLET (FP) PO SCH ×2 (10:24→21:36)
[2017-01-14] MEDS ORDERED: POTASSIUM CHLORIDE TABS 20 MEQ TABLET.ER (FP) PO ONE (11:30)
[2017-01-14] MEDS ORDERED: LEVOTHYROXINE NA 88 MCG TABLET (FP) ONE (11:51)
[2017-01-14] MEDS: LEVOTHYROXINE PO SCH (11:54)
--- NOTE | 2017-01-14 12:37 | PN ---
Progress Note, Physician History of Present Illness: Pt seen and examined at bedside. He is awake and alert. He denies shortness of breath. - Current Medication List Current Medications: Active Medications Amlodipine Besylate (Norvasc -) 10 mg PO DAILY [facility] Last Admin: 01/14/17 10:22 Dose: 10 mg Bisacodyl (Dulcolax Suppository -) 10 mg RC PRN PRN PRN Reason: CONSTIPATION Clopidogrel Bisulfate (Plavix -) 75 mg PO DAILY [facility] Last Admin: 01/14/17 10:21 Dose: 75 mg Docusate Sodium (Colace Liquid -) 300 mg PO DAILY PRN PRN Reason: CONSTIPATION Heparin Sodium (Porcine) (Heparin -) 5,000 unit SQ BID [facility] Last Admin: 01/14/17 10:14 Dose: 5,000 unit Ertapenem 0.5 gm/ Sodium (Chloride) 50 mls @ 100 mls/hr IVPB DAILY [facility] PRN Reason: Protocol Last Admin: 01/14/17 10:14 Dose: 100 mls/hr Insulin Aspart (Novolog Vial Sliding Scale -) 1 vial SQ ACHS [facility] PRN Reason: Protocol Last Admin: 01/14/17 11:55 Dose: 4 units Levothyroxine Sodium 88 mcg/ (Levothyroxine Sodium 100 mcg) 188 mcg PO DAILY@ 0700 [facility] Last Admin: 01/14/17 11:54 Dose: Not Given Lorazepam (Ativan Injection -) 2 mg IM Q12H PRN PRN Reason: ACUTE AGITATION Metoprolol Tartrate (Lopressor -) 25 mg PO BID [facility] Last Admin: 01/14/17 10:24 Dose: 25 mg Oxycodone/Acetaminophen (Percocet 5/325 -) 2 combo PO Q6H PRN PRN Reason: PAIN LEVEL 6-10 Last Admin: 01/14/17 06:01 Dose: 2 combo Pantoprazole Sodium (Protonix -) 40 mg PO DAILY [facility] Last Admin: 01/14/17 10:22 Dose: 40 mg Quetiapine Fumarate (Seroquel -) 12.5 mg PO DAILY [facility] Last Admin: 01/14/17 10:24 Dose: 12.5 mg - Objective Vital Signs: Vital Signs Temperature 98.8 F 01/14/17 09:00 Pulse Rate 72 01/14/17 09:00 Respiratory Rate 20 01/14/17 09:00 Blood Pressure 112/55 01/14/17 09:00 O2 Sat by Pulse Oximetry (%) 96 01/13/17 20:18 Constitutional: Yes: Calm Eyes: Yes: Conjunctiva Clear HENT: Yes: Atraumatic Cardiovascular: Yes: S1, S2 Respiratory: Yes: CTA Bilaterally Gastrointestinal: Yes: WNL Genitourinary: Yes: Wolfe Present, Other (right nephrostomy tube) Edema: No Neurological: Yes: Oriented Psychiatric: Yes: Oriented Labs: CBC, BMP 01/14/17 08:55 01/14/17 08:55 INR, PTT INR 1.01 (0.82-1.09) 01/09/17 05:20 Problem List - Problems (1) SHARMILA (acute kidney injury) Code(s): N17.9 - ACUTE KIDNEY FAILURE, UNSPECIFIED (2) Diabetic ketoacidosis with coma Code(s): E13.11 - OTH DIABETES MELLITUS WITH KETOACIDOSIS WITH COMA (3) Nephrostomy complication Code(s): N99.528 - OTHER COMP OF INCONTINENT EXTERNAL STOMA OF URINARY TRACT Assessment/Plan Current Medications Generic Name Dose Route Start Last Admin Trade Name Freq PRN Reason Stop Dose Admin Amlodipine Besylate 10 mg 01/14/17 10:00 01/14/17 10:22 Norvasc - PO 10 mg DAILY [facility] Administration Bisacodyl 10 mg 01/12/17 13:28 Dulcolax Suppository - RC PRN PRN CONSTIPATION Clopidogrel Bisulfate 75 mg 01/13/17 10:00 01/14/17 10:21 Plavix - PO 75 mg DAILY [facility] Administration Docusate Sodium 300 mg 01/12/17 13:28 Colace Liquid - PO DAILY PRN CONSTIPATION Heparin Sodium (Porcine) 5,000 unit 01/12/17 22:00 01/14/17 10:14 Heparin - SQ 5,000 unit BID [facility] Administration Ertapenem 0.5 gm/ Sodium 50 mls @ 100 mls/hr 01/13/17 10:00 01/14/17 10:14 Chloride IVPB 100 mls/hr DAILY [facility] Administration Protocol Insulin Aspart 1 vial 01/13/17 17:17 01/14/17 11:55 Novolog Vial Sliding Scale - SQ 4 units ACHS [facility] Administration Protocol Levothyroxine Sodium 88 mcg/ 188 mcg 01/14/17 11:30 01/14/17 11:54 Levothyroxine Sodium 100 mcg PO Not Given DAILY@0700 [facility] Lorazepam 2 mg 01/12/17 17:35 Ativan Injection - IM Q12H PRN ACUTE AGITATION Metoprolol Tartrate 25 mg 01/12/17 22:00 01/14/17 10:24 Lopressor - PO 25 mg BID [facility] Administration Oxycodone/Acetaminophen 2 combo 01/12/17 11:27 01/14/17 06:01 Percocet 5/325 - PO 2 combo Q6H PRN Administration PAIN LEVEL 6-10 Pantoprazole Sodium 40 mg 01/13/17 10:00 01/14/17 10:22 Protonix - PO 40 mg DAILY [facility] Administration Quetiapine Fumarate 12.5 mg 01/12/17 10:45 01/14/17 10:24 Seroquel - PO 12.5 mg DAILY [facility] Administration Impression 1. SHARMILA 2. DKA 3. hyperkalemia 4. 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 obstructive uropathy with nephrostomy tube dislodged 6. dementia 7. developemental delay 8. hypothyroidism 9. DM 10. acidosis 11. respiratory failure - acute requiring intubation 12. prostate cancer 13. s/p IVC filter Plan - renal function stable - replace potassium - check mag level - monitor urine ouput - urology follow up Dr Ruelas
--- NOTE | 2017-01-14 20:10 | PN ---
Progress Note, Physician Chief Complaint: Not in distress History of Present Illness: Patient was seen and examined. Awake and alert. Chart was reviewed Denies chest pain, SOB or palpitations - Current Medication List Current Medications: Active Medications Amlodipine Besylate (Norvasc -) 10 mg PO DAILY [facility] Last Admin: 01/14/17 10:22 Dose: 10 mg Bisacodyl (Dulcolax Suppository -) 10 mg RC PRN PRN PRN Reason: CONSTIPATION Clopidogrel Bisulfate (Plavix -) 75 mg PO DAILY [facility] Last Admin: 01/14/17 10:21 Dose: 75 mg Docusate Sodium (Colace Liquid -) 300 mg PO DAILY PRN PRN Reason: CONSTIPATION Heparin Sodium (Porcine) (Heparin -) 5,000 unit SQ BID [facility] Last Admin: 01/14/17 10:14 Dose: 5,000 unit Ertapenem 1 gm/ Sodium (Chloride) 50 mls @ 100 mls/hr IVPB DAILY [facility] PRN Reason: Protocol Insulin Aspart (Novolog Vial Sliding Scale -) 1 vial SQ ACHS [facility] PRN Reason: Protocol Last Admin: 01/14/17 17:04 Dose: Not Given Levothyroxine Sodium 88 mcg/ (Levothyroxine Sodium 100 mcg) 188 mcg PO DAILY@ 0700 [facility] Last Admin: 01/14/17 11:54 Dose: Not Given Lorazepam (Ativan Injection -) 2 mg IM Q12H PRN PRN Reason: ACUTE AGITATION Metoprolol Tartrate (Lopressor -) 25 mg PO BID [facility] Last Admin: 01/14/17 10:24 Dose: 25 mg Oxycodone/Acetaminophen (Percocet 5/325 -) 2 combo PO Q6H PRN PRN Reason: PAIN LEVEL 6-10 Last Admin: 01/14/17 06:01 Dose: 2 combo Pantoprazole Sodium (Protonix -) 40 mg PO DAILY [facility] Last Admin: 01/14/17 10:22 Dose: 40 mg Quetiapine Fumarate (Seroquel -) 12.5 mg PO DAILY [facility] Last Admin: 01/14/17 10:24 Dose: 12.5 mg - Objective Vital Signs: Vital Signs Temperature 97.8 F 01/14/17 14:37 Pulse Rate 64 01/14/17 14:37 Respiratory Rate 18 01/14/17 09:00 Blood Pressure 124/65 01/14/17 14:37 O2 Sat by Pulse Oximetry (%) 97 01/14/17 09:00 Neck: Yes: Supple Cardiovascular: Yes: Regular Rate and Rhythm, S1, S2 Respiratory: Yes: Diminished Gastrointestinal: Yes: Normal Bowel Sounds, Soft. No: Tenderness Edema: No Labs: CBC, BMP 01/14/17 08:55 01/14/17 08:55 Problem List - Problems (1) SHARMILA (acute kidney injury) Code(s): N17.9 - ACUTE KIDNEY FAILURE, UNSPECIFIED (2) Diabetes mellitus Code(s): E11.9 - TYPE 2 DIABETES MELLITUS WITHOUT COMPLICATIONS (3) Diabetic ketoacidosis with coma Code(s): E13.11 - OTH DIABETES MELLITUS WITH KETOACIDOSIS WITH COMA (4) HTN (hypertension) Code(s): I10 - ESSENTIAL (PRIMARY) HYPERTENSION (5) Nephrostomy complication Code(s): N99.528 - OTHER COMP OF INCONTINENT EXTERNAL STOMA OF URINARY TRACT Assessment/Plan 1. Hypertension 2. Diabetes mellitus 3. Organic brain/dementia/developmental delay (mild) 4. Recent DKA 5. Post respiratory failure requiring intubation 6. Acute on CKD 7. Obstructive uropathy nephrostomy tube insertion PLAN: 1. Continue Metoprolol Tartrate and Amlodipine 2. Continue Plavix 3. Continue antibiotic coverage 4. Monitor renal function and electrolytes 5. Transthoracic echocardiography pending - report to follow Further plans are to follow Bronson Monzon MD
[2017-01-15] MEDS ORDERED: LEVOTHYROXINE NA 100 MCG TABLET (FP) ONE (05:54)
[2017-01-15] MEDS ORDERED: LEVOTHYROXINE NA 88 MCG TABLET (FP) ONE (05:54)
[2017-01-15] MEDS: LEVOTHYROXINE PO SCH (06:08)
[2017-01-15] MEDS: INSULIN SLIDING SCALE (NOVOLOG) 1 VIAL SQ SCH ×4 (06:11→22:19)
[2017-01-15 07:59] LABS: EOSINOPHIL 10.5 % (0-4.5); MCH 29.9 pg (25.7-33.7); MCHC 33.2 g/dl (32.0-35.9); MEAN CELL VOLUME 89.9 fl (80-96); MEAN PLT VOLUME 6.9 fl (7.5-11.1); NEUTROPHILS 47.2 % (42.8-82.8); PLATELET COUNT 204 K/MM3 (134-434); RDW 15.2 % (11.9-15.9); WHITE BLOOD COUNT 3.7 K/mm3 (4.0-10.0)
[2017-01-15 08:29] LABS: ALBUMIN 2.5 g/dl (3.4-5.0); ANION GAP 8 (8-16); BILIRUBIN,TOTAL 0.5 mg/dL (0.2-1.0); CALCIUM 8.8 mg/dL (8.5-10.1); CO2 27 mmol/L (21-32); CREATININE 1.4 mg/dL (0.7-1.3); GLUCOSE,RANDOM 179 mg/dL (74-106); SGOT/AST 5 U/L (15-37); SGPT/ALT 14 U/L (12-78)
[2017-01-15 08:30] LABS: ALK PHOS 105 U/L (45-117); TOT PROT 6.7 g/dl (6.4-8.2)
[2017-01-15] MEDS ORDERED: PT OWN MED DRAWER 7, Y5N ONE ×2 (09:10→21:31)
[2017-01-15] MEDS: PANTOPRAZOLE 40 MG TABLET (FP) PO SCH (09:24)
[2017-01-15] MEDS: METOPROLOL TARTRATE 25 MG TABLET (FP) PO SCH ×2 (09:25→22:18)
[2017-01-15] MEDS: QUEtiapine FUMARATE 25 MG TABLET (FP) PO SCH (09:25)
[2017-01-15] MEDS: CLOPIDOGREL BISULFATE 75 MG TABLET (FP) PO SCH (09:25)
[2017-01-15] MEDS: amLODIPine BESYLATE 10 MG TABLET (FP) PO SCH (09:26)
[2017-01-15] MEDS: HEPARIN NA (PORCINE) 5,000 UNITS/ML 1ML VIAL SQ SCH ×2 (09:26→22:22)
[2017-01-15] MEDS: ERTAPENEM SODIUM 1 GM in SODIUM CHLORIDE 50 ML IVPB SCH (09:36)
--- NOTE | 2017-01-15 10:26 | PN ---
Progress Note (short form) - Note Progress Note: renal function continues to improve Vital Signs Period Temp Pulse Resp BP Sys/Franklin Pulse Ox Last 24 Hr 97.7 F-98.4 F 62-76 18-20 120-178/65-81 cor-rrr lungs clear abd soft, nt +Right PCN mcbride ext no edema CBC, BMP 01/15/17 06:00 01/15/17 06:00 Microbiology 01/08/17 10:20 Blood - Peripheral Venous Blood Culture - Final NO GROWTH AFTER 5 DAYS INCUBATION 01/08/17 10:30 Blood - Peripheral Venous Blood Culture - Final NO GROWTH AFTER 5 DAYS INCUBATION 01/08/17 11:00 Urine - Urine Mcbride Urine Culture - Final Klebsiella Pneumoniae - Esbl a/p UTI- Klebsiella ESBL s/p replacement of right PCN renal function improving day #5 of 7 ertapenem contact isolation for resistant Klebsiella
--- NOTE | 2017-01-15 11:07 | PN ---
Progress Note (short form) - Note Progress Note: doing ok with r hydro and l kidney stone abd benign needs diuretic renal scan as inpt l lithotrypsy prostate w/u as out pt for obs uropathy ie - uds and possible tuvp as out pt
[2017-01-15] MEDS ORDERED: INSULIN (NOVOLOG) ASPART 100 UNITS/ML 10ML VIAL ONE (11:27)
--- NOTE | 2017-01-15 13:45 | PN ---
Progress Note, Physician Chief Complaint: Not in distress History of Present Illness: Patient was seen and examined. Awake and alert. Chart was reviewed Denies chest pain, SOB or palpitations - Current Medication List Current Medications: Active Medications Amlodipine Besylate (Norvasc -) 10 mg PO DAILY COUNT INCLUDES THE [facility] Last Admin: 01/15/17 09:26 Dose: 10 mg Bisacodyl (Dulcolax Suppository -) 10 mg RC PRN PRN PRN Reason: CONSTIPATION Clopidogrel Bisulfate (Plavix -) 75 mg PO DAILY COUNT INCLUDES THE [facility] Last Admin: 01/15/17 09:25 Dose: 75 mg Docusate Sodium (Colace Liquid -) 300 mg PO DAILY PRN PRN Reason: CONSTIPATION Heparin Sodium (Porcine) (Heparin -) 5,000 unit SQ BID COUNT INCLUDES THE [facility] Last Admin: 01/15/17 09:26 Dose: 5,000 unit Ertapenem 1 gm/ Sodium (Chloride) 50 mls @ 100 mls/hr IVPB DAILY COUNT INCLUDES THE [facility] PRN Reason: Protocol Last Admin: 01/15/17 09:36 Dose: 100 mls/hr Insulin Aspart (Novolog Vial Sliding Scale -) 1 vial SQ ACHS COUNT INCLUDES THE [facility] PRN Reason: Protocol Last Admin: 01/15/17 11:33 Dose: 8 units Levothyroxine Sodium 88 mcg/ (Levothyroxine Sodium 100 mcg) 188 mcg PO DAILY@ 0700 COUNT INCLUDES THE [facility] Last Admin: 01/15/17 06:08 Dose: 188 mcg Lorazepam (Ativan Injection -) 2 mg IM Q12H PRN PRN Reason: ACUTE AGITATION Metoprolol Tartrate (Lopressor -) 25 mg PO BID COUNT INCLUDES THE [facility] Last Admin: 01/15/17 09:25 Dose: 25 mg Oxycodone/Acetaminophen (Percocet 5/325 -) 2 combo PO Q6H PRN PRN Reason: PAIN LEVEL 6-10 Last Admin: 01/15/17 06:07 Dose: 2 combo Pantoprazole Sodium (Protonix -) 40 mg PO DAILY COUNT INCLUDES THE [facility] Last Admin: 01/15/17 09:24 Dose: 40 mg Quetiapine Fumarate (Seroquel -) 12.5 mg PO DAILY COUNT INCLUDES THE [facility] Last Admin: 01/15/17 09:25 Dose: 12.5 mg - Objective Vital Signs: Vital Signs Temperature 97.7 F 01/15/17 08:42 Pulse Rate 76 01/15/17 08:42 Respiratory Rate 18 01/15/17 09:00 Blood Pressure 144/73 01/15/17 08:42 O2 Sat by Pulse Oximetry (%) 96 01/15/17 09:00 Neck: Yes: Supple Cardiovascular: Yes: Regular Rate and Rhythm, S1, S2 Respiratory: Yes: Diminished Gastrointestinal: Yes: Normal Bowel Sounds, Soft. No: Tenderness Edema: No Labs: CBC, BMP 01/15/17 06:00 01/15/17 06:00 Problem List - Problems (1) SHARMILA (acute kidney injury) Code(s): N17.9 - ACUTE KIDNEY FAILURE, UNSPECIFIED (2) Diabetes mellitus Code(s): E11.9 - TYPE 2 DIABETES MELLITUS WITHOUT COMPLICATIONS (3) Diabetic ketoacidosis with coma Code(s): E13.11 - OTH DIABETES MELLITUS WITH KETOACIDOSIS WITH COMA (4) HTN (hypertension) Code(s): I10 - ESSENTIAL (PRIMARY) HYPERTENSION (5) Nephrostomy complication Code(s): N99.528 - OTHER COMP OF INCONTINENT EXTERNAL STOMA OF URINARY TRACT Assessment/Plan 1. Hypertension 2. Diabetes mellitus 3. Organic brain/dementia/developmental delay (mild) 4. Recent DKA 5. Post respiratory failure requiring intubation 6. Acute on CKD 7. Obstructive uropathy nephrostomy tube insertion PLAN: 1. Continue Metoprolol Tartrate and Amlodipine 2. Continue Plavix 3. Continue antibiotic coverage 4. Monitor renal function and electrolytes 5. Transthoracic echocardiography pending - report to follow Further plans are to follow Bronson Monzon MD
--- NOTE | 2017-01-15 14:58 | PN ---
Physical Exam: SUBJECTIVE: Patient seen and examined. He is asking for insulin. He has no other acute complaints. Sleeping with eye mask on OBJECTIVE: Vital Signs Period Temp Pulse Resp BP Sys/Franklin Pulse Ox Last 24 Hr 97.7 F-98.4 F 62-76 18-20 120-178/60-81 96 PE Neuro: alert, awake, oriented to self, medications Pulm: clear anteriorly Cv: s1 s2 rrrr no mrg Abd: s nt nd + bs : r nephrostomy clear yellow urine, mcbride catheter Ext: warm, no le edema CBCD WBC 3.7 K/mm3 (4.0-10.0) L D 01/15/17 06:00 RBC 3.24 M/mm3 (4.00-5.60) L 01/15/17 06:00 Hgb 9.7 GM/dL (11.7-16.9) L 01/15/17 06:00 Hct 29.1 % (35.4-49) L 01/15/17 06:00 MCV 89.9 fl (80-96) 01/15/17 06:00 MCHC 33.2 g/dl (32.0-35.9) 01/15/17 06:00 RDW 15.2 % (11.9-15.9) 01/15/17 06:00 Plt Count 204 K/MM3 (134-434) 01/15/17 06:00 MPV 6.9 fl (7.5-11.1) L 01/15/17 06:00 CMP Sodium 139 mmol/L (136-145) 01/15/17 06:00 Potassium 4.0 mmol/L (3.5-5.1) D 01/15/17 06:00 Chloride 104 mmol/L (98-107) 01/15/17 06:00 Carbon Dioxide 27 mmol/L (21-32) 01/15/17 06:00 Anion Gap 8 (8-16) 01/15/17 06:00 BUN 22 mg/dL (7-18) H 01/15/17 06:00 Creatinine 1.4 mg/dL (0.7-1.3) H 01/15/17 06:00 Creat Clearance w eGFR 50.70 (>60) 01/15/17 06:00 Calcium 8.8 mg/dL (8.5-10.1) 01/15/17 06:00 Total Bilirubin 0.5 mg/dL (0.2-1.0) 01/15/17 06:00 AST 5 U/L (15-37) L D 01/15/17 06:00 ALT 14 U/L (12-78) 01/15/17 06:00 Alkaline Phosphatase 105 U/L (45-117) 01/15/17 06:00 Total Protein 6.7 g/dl (6.4-8.2) 01/15/17 06:00 Albumin 2.5 g/dl (3.4-5.0) L 01/15/17 06:00 Active Medications Generic Name Dose Route Start Last Admin Trade Name Freq PRN Reason Stop Dose Admin Amlodipine Besylate 10 mg 01/14/17 10:00 01/15/17 09:26 Norvasc - PO 10 mg DAILY CLARE Administration Bisacodyl 10 mg 01/12/17 13:28 Dulcolax Suppository - RC PRN PRN CONSTIPATION Clopidogrel Bisulfate 75 mg 01/13/17 10:00 01/15/17 09:25 Plavix - PO 75 mg DAILY CLARE Administration Docusate Sodium 300 mg 01/12/17 13:28 Colace Liquid - PO DAILY PRN CONSTIPATION Heparin Sodium (Porcine) 5,000 unit 01/12/17 22:00 01/15/17 09:26 Heparin - SQ 5,000 unit BID CLARE Administration Ertapenem 1 gm/ Sodium 50 mls @ 100 mls/hr 01/15/17 10:00 01/15/17 09:36 Chloride IVPB 100 mls/hr DAILY CLARE Administration Protocol Insulin Aspart 1 vial 01/13/17 17:17 01/15/17 11:33 Novolog Vial Sliding Scale - SQ 8 units ACHS CLARE Administration Protocol Levothyroxine Sodium 88 mcg/ 188 mcg 01/14/17 11:30 01/15/17 06:08 Levothyroxine Sodium 100 mcg PO 188 mcg DAILY@0700 CLARE Administration Lorazepam 2 mg 01/12/17 17:35 Ativan Injection - IM Q12H PRN ACUTE AGITATION Metoprolol Tartrate 25 mg 01/12/17 22:00 01/15/17 09:25 Lopressor - PO 25 mg BID CLARE Administration Oxycodone/Acetaminophen 2 combo 01/12/17 11:27 01/15/17 06:07 Percocet 5/325 - PO 2 combo Q6H PRN Administration PAIN LEVEL 6-10 Pantoprazole Sodium 40 mg 01/13/17 10:00 01/15/17 09:24 Protonix - PO 40 mg DAILY CLARE Administration Quetiapine Fumarate 12.5 mg 01/12/17 10:45 01/15/17 09:25 Seroquel - PO 12.5 mg DAILY CLARE Administration Microbiology 01/08/17 10:20 Blood - Peripheral Venous Blood Culture - Final NO GROWTH AFTER 5 DAYS INCUBATION 01/08/17 10:30 Blood - Peripheral Venous Blood Culture - Final NO GROWTH AFTER 5 DAYS INCUBATION 01/08/17 11:00 Urine - Urine Mcbride Urine Culture - Final Klebsiella Pneumoniae - Esbl Imaging: - CTAP 01/09: right hydronephrosis with ureter dilated to pelvic region, no stones; left renal stent, non-obstructing nephrolithiasis Assessment: 66 year old male with pmhx of HTN, dementia/psych disorder, h/o CVA on Plavix, IDDM, h/o DVTs with IVC filter, hypothyroidism, basal cell carcinoma , CKD, newly diagnosed prostate adenocarcinoma obstructing bilateral ureters, s/ p left ureteral JJ stent (11/2015), admitted with dislodged right nephrostomy tube, and paraplegia. Plan: 1. ESBL kelbsiella UTI - Ertapenem day 5 of 7 - Contact precautions 2. R sided hydronephrosis/L kidney stone/urinary retention with neurogenic bladder - Renal US with diuretic ordered - Further urology work up as outpt 3. SHARMILA on CKD - Due to above - R sided nephrostomy replaced 01/09 - Cr improving 4. Prostate adenocarcinoma - Son to obtain further details re: diagnosis prior to treatment 5. HTN - Controlled - Metoprolol 25mg BID - Norvasc 10mg daily - ECHO report pending 6. DM II - Will re dose Levemir 5 units tonight - ISS, BGM ACHS 7. Hypothyroid - Synthroid 188mcg daily - recheck TSH in 6 weeks, dose increased 01/14 7. Dementia/anti social behavior - Is agreeable to antibiotics and insulin at this time, has been refusing - Seroquel 12.5mg daily per psych, uptitrate as needed 8. Acute respiratory failure - Extubated - Stable on RA 9. DKA - Resolved 10. hx of DVT - s/p IVC filter Visit type - Emergency Visit Emergency Visit: Yes ED Registration Date: 01/07/17 Care time: The patient presented to the Emergency Department on the above date and was hospitalized for further evaluation of their emergent condition. - New Patient This patient is new to me today: Yes Date on this admission: 01/15/17 - Critical Care Critical Care patient: No
[2017-01-15] MEDS: INSULIN DETEMIR 100 UNITS/ML MDV SQ SCH (22:19)
[2017-01-16] MEDS: INSULIN DETEMIR 100 UNITS/ML MDV SQ SCH ×2 (00:16→21:53)
[2017-01-16] MEDS ORDERED: LEVOTHYROXINE NA 88 MCG TABLET (FP) ONE (05:51)
[2017-01-16] MEDS ORDERED: LEVOTHYROXINE NA 100 MCG TABLET (FP) ONE (05:51)
[2017-01-16] MEDS: INSULIN SLIDING SCALE (NOVOLOG) 1 VIAL SQ SCH ×4 (06:05→21:52)
[2017-01-16] MEDS: LEVOTHYROXINE PO SCH (06:05)
[2017-01-16] MEDS: QUEtiapine FUMARATE 25 MG TABLET (FP) PO SCH (09:20)
[2017-01-16] MEDS: PANTOPRAZOLE 40 MG TABLET (FP) PO SCH (09:21)
[2017-01-16] MEDS: METOPROLOL TARTRATE 25 MG TABLET (FP) PO SCH ×2 (09:21→21:53)
[2017-01-16] MEDS: amLODIPine BESYLATE 10 MG TABLET (FP) PO SCH (09:21)
[2017-01-16] MEDS: CLOPIDOGREL BISULFATE 75 MG TABLET (FP) PO SCH (09:21)
[2017-01-16] MEDS: HEPARIN NA (PORCINE) 5,000 UNITS/ML 1ML VIAL SQ SCH ×2 (09:21→21:53)
[2017-01-16] MEDS: ERTAPENEM SODIUM 1 GM in SODIUM CHLORIDE 50 ML IVPB SCH (09:22)
[2017-01-16 09:41] LABS: ANION GAP 9 (8-16); CALCIUM 8.7 mg/dL (8.5-10.1); CO2 28 mmol/L (21-32); GLUCOSE,RANDOM 128 mg/dL (74-106)
[2017-01-16 09:43] LABS: CREATININE 1.5 mg/dL (0.7-1.3)
[2017-01-16] MEDS ORDERED: PT OWN MED DRAWER 7, Y5N ONE (11:36)
--- NOTE | 2017-01-16 15:18 | PN ---
Physical Exam: SUBJECTIVE: Patient seen and examined at the bedside. He reports feeling well. Denies discomfort. OBJECTIVE: Patient is calmer and more cooperative on exam. Spoke to son Nba and updated him on patient status Patient had workup with Dr Rivera and will follow patient for possible TURP and prostate adenocarcinoma Vital Signs Period Temp Pulse Resp BP Sys/Franklin Pulse Ox Last 24 Hr 97.8 F-98.9 F 63-78 20-20 142-155/64-74 98 GENERAL: The patient is awake, alert, and fully oriented, in no acute distress, denies pain HEAD: Normal with no signs of trauma. EYES: PERRL, extraocular movements intact, sclera anicteric, conjunctiva clear. No ptosis. ENT: Ears normal, nares patent, oropharynx clear without exudates, moist mucous membranes. NECK: Trachea midline, full range of motion, supple. LUNGS: Breath sounds equal, clear to auscultation bilaterally, no wheezes, no crackles, no accessory muscle use. ABDOMEN: Soft, nontender, nondistended, normoactive bowel sounds, no guarding, no rebound, no hepatosplenomegaly, no masses. NEUROLOGICAL: Normal speech, gait not observed. PSYCH: Normal mood, normal affect. SKIN: mcbride catheter and right neph. tube in place, draining clear yellow urine Laboratory Results - last 24 hr 01/15/17 01/15/17 01/16/17 17:04 22:17 05:30 Sodium Potassium Chloride Carbon Dioxide Anion Gap BUN Creatinine POC Glucometer 122 247 227 Random Glucose Calcium Magnesium 01/16/17 01/16/17 01/16/17 08:15 08:15 11:50 Sodium 139 Potassium 3.9 Chloride 102 Carbon Dioxide 28 Anion Gap 9 BUN 21 H Creatinine 1.5 H POC Glucometer 116 Random Glucose 128 H D Calcium 8.7 Magnesium 2.0 Cancelled Active Medications Generic Name Dose Route Start Last Admin Trade Name Freq PRN Reason Stop Dose Admin Amlodipine Besylate 10 mg 01/14/17 10:00 01/16/17 09:21 Norvasc - PO 10 mg DAILY CLARE Administration Bisacodyl 10 mg 01/12/17 13:28 Dulcolax Suppository - RC PRN PRN CONSTIPATION Clopidogrel Bisulfate 75 mg 01/13/17 10:00 01/16/17 09:21 Plavix - PO 75 mg DAILY CLRAE Administration Docusate Sodium 300 mg 01/12/17 13:28 Colace Liquid - PO DAILY PRN CONSTIPATION Heparin Sodium (Porcine) 5,000 unit 01/12/17 22:00 01/16/17 09:21 Heparin - SQ 5,000 unit BID CLARE Administration Ertapenem 1 gm/ Sodium 50 mls @ 100 mls/hr 01/15/17 10:00 01/16/17 09:22 Chloride IVPB 100 mls/hr DAILY CLARE Administration Protocol Insulin Aspart 1 vial 01/13/17 17:17 01/16/17 11:55 Novolog Vial Sliding Scale - SQ Not Given ACHS [facility] Protocol Insulin Detemir 5 units 01/15/17 22:00 01/16/17 00:16 Levemir Vial SQ Not Given HS [facility] Levothyroxine Sodium 88 mcg/ 188 mcg 01/14/17 11:30 01/16/17 06:05 Levothyroxine Sodium 100 mcg PO 188 mcg DAILY@0700 CLARE Administration Metoprolol Tartrate 25 mg 01/12/17 22:00 01/16/17 09:21 Lopressor - PO 25 mg BID CLARE Administration Oxycodone/Acetaminophen 2 combo 01/12/17 11:27 01/16/17 10:02 Percocet 5/325 - PO 2 combo Q6H PRN Administration PAIN LEVEL 6-10 Pantoprazole Sodium 40 mg 01/13/17 10:00 01/16/17 09:21 Protonix - PO 40 mg DAILY CLARE Administration Quetiapine Fumarate 12.5 mg 01/12/17 10:45 01/16/17 09:20 Seroquel - PO 12.5 mg DAILY CLARE Administration ASSESSMENT/PLAN: Patient is a 66 year old male with a significant pasts medical history of HTN, dementia/psych disorder, h/o CVA on Plavix, IDDM, h/o DVTs with IVC filter, hypothyroidism, basal cell carcinoma, CKD, newly diagnosed prostate adenocarcinoma obstructing bilateral ureters, s/p left ureteral JJ stent (2015), s/p right nephrostomy tube replacement (01/09/17) and paraplegia. ID: UTI +ESBL A/P: + urine cultures with Klebsiella ESBL UTI On Ertapenem daily, dose day 6/7 Continue contact isolation for resistant Klebsiella ID following : Acute Kidney injury/Acute on chronic renal insufficiency - improving Bilateral ureteral obstruction secondary to prostate adenocarcinoma A/P: right nephrostomy tube replacement on 01/09, +mcbride cath for left kidney urine drainage making urine, monitor intake and output renal function trending down, improving Renal following, Dr. Rivera is patient's outpatient urologist, will need to follow up outpatient Prostate adenocarcinoma - new diagnosis, to follow Dr. Rivera outpatient once discharged A/P: 01/09 CTAP shows right hydronephrosis with ureter dilated to pelvic region, no stones; left renal stent, non-obstructing nephrolithiasis Urology following, patient son asked for oncology consult Cardiology: Hypertension - improving A/P: On Lopressor 25mg BID and Novasc 10mg daily Cardiology following, transthoracic echocardiography pending Monitor BP Endocrine: DKA - now resolved, anion gap closed A/P: Episodes of hypoglycemia, Levemir restarted yesterday Monitor blood sugars ac/hs Psyche: Psyche disorder/dementia - chronic A/P: Patient has long history of anti-social behavior and has been under psychiatric care Has multiple angry outbursts and often refusing glucose checks and other cares Started on seroquel 12.5mg daily, titrate as needed for agitation Psyche following Hematology: DVT history A/P: Has IVC filter F.E.N. Fluids: Tolerating PO Electrolytes; monitor Disposition: Continues to require inpatient hospitalization. Full code. Visit type - Emergency Visit Emergency Visit: Yes ED Registration Date: 01/07/17 Care time: The patient presented to the Emergency Department on the above date and was hospitalized for further evaluation of their emergent condition. - New Patient This patient is new to me today: No - Critical Care Critical Care patient: No - Discharge Referral Referred to [facility] Med P.C.: No
[2017-01-16] MEDS ORDERED: INSULIN (NOVOLOG) ASPART 100 UNITS/ML 10ML VIAL ONE (21:43)
--- NOTE | 2017-01-16 21:47 | PN ---
Progress Note (short form) - Note Progress Note: Patient seen and examined Denies any complaints AFVSS Cor: RSR, No murmurs, No gallops Lungs: Clear to P&A Abd: Soft, Normal bowel sounds, No organomegaly Ext:No significant edema Skin: No rashes, Integument intact A/P 66 y/o patient with a significant pasts medical history of HTN, dementia/psych disorder, h/o CVA on Plavix, IDDM, h/o DVTs with IVC filter, hypothyroidism, basal cell carcinoma, CKD, newly diagnosed prostate adenocarcinoma obstructing bilateral ureters, s/p left ureteral JJ stent (11/2015), s/p right nephrostomy tube replacement (01/09/17) and paraplegia. Has been wheelchair bound per patient for > 1yr. will discuss with urology/Dr. Ghassan Rivera will need family meeting/pallative care consult
[2017-01-17] MEDS ORDERED: LEVOTHYROXINE NA 100 MCG TABLET (FP) ONE (06:06)
[2017-01-17] MEDS ORDERED: LEVOTHYROXINE NA 88 MCG TABLET (FP) ONE (06:06)
[2017-01-17] MEDS: INSULIN SLIDING SCALE (NOVOLOG) 1 VIAL SQ SCH ×2 (06:09→11:40)
[2017-01-17] MEDS: LEVOTHYROXINE PO SCH (06:09)
[2017-01-17 07:40] LABS: BASOPHIL 0.8 % (0-2.0); MCH 29.9 pg (25.7-33.7); MCHC 33.4 g/dl (32.0-35.9); MEAN CELL VOLUME 89.6 fl (80-96); MEAN PLT VOLUME 6.7 fl (7.5-11.1); NEUTROPHILS 43.9 % (42.8-82.8); PLATELET COUNT 246 K/MM3 (134-434); RDW 14.9 % (11.9-15.9); WHITE BLOOD COUNT 4.6 K/mm3 (4.0-10.0)
[2017-01-17 08:07] LABS: ALBUMIN 2.4 g/dl (3.4-5.0); ALK PHOS 103 U/L (45-117); ANION GAP 8 (8-16); BILIRUBIN,TOTAL 0.4 mg/dL (0.2-1.0); CALCIUM 8.7 mg/dL (8.5-10.1); CO2 31 mmol/L (21-32); CREATININE 1.5 mg/dL (0.7-1.3); GLUCOSE,RANDOM 134 mg/dL (74-106); MAGNESIUM 1.9 mg/dL (1.8-2.4); PHOSPHOROUS 2.3 mg/dL (2.5-4.9); SGOT/AST 8 U/L (15-37); SGPT/ALT 12 U/L (12-78); TOT PROT 6.9 g/dl (6.4-8.2)
[2017-01-17] MEDS ORDERED: PT OWN MED DRAWER 7, Y5N ONE (09:44)
[2017-01-17] MEDS: amLODIPine BESYLATE 10 MG TABLET (FP) PO SCH (09:55)
[2017-01-17] MEDS: METOPROLOL TARTRATE 25 MG TABLET (FP) PO SCH (09:55)
[2017-01-17] MEDS: QUEtiapine FUMARATE 25 MG TABLET (FP) PO SCH (09:55)
[2017-01-17] MEDS: CLOPIDOGREL BISULFATE 75 MG TABLET (FP) PO SCH (09:55)
[2017-01-17] MEDS: PANTOPRAZOLE 40 MG TABLET (FP) PO SCH (09:55)
[2017-01-17] MEDS: ERTAPENEM SODIUM 1 GM in SODIUM CHLORIDE 50 ML IVPB SCH (09:55)
--- NOTE | 2017-01-17 10:33 | PN ---
Progress Note, Physician Chief Complaint: Not in distress Appears comfortable History of Present Illness: Patient was seen and examined. Awake and alert. Chart was reviewed Denies chest pain, SOB or palpitations - Current Medication List Current Medications: Active Medications Amlodipine Besylate (Norvasc -) 10 mg PO DAILY COUNTS INCLUDE 234 BEDS AT THE [facility] Last Admin: 01/17/17 09:55 Dose: 10 mg Bisacodyl (Dulcolax Suppository -) 10 mg RC PRN PRN PRN Reason: CONSTIPATION Clopidogrel Bisulfate (Plavix -) 75 mg PO DAILY COUNTS INCLUDE 234 BEDS AT THE [facility] Last Admin: 01/17/17 09:55 Dose: 75 mg Docusate Sodium (Colace Liquid -) 300 mg PO DAILY PRN PRN Reason: CONSTIPATION Heparin Sodium (Porcine) (Heparin -) 5,000 unit SQ BID COUNTS INCLUDE 234 BEDS AT THE [facility] Last Admin: 01/16/17 21:53 Dose: 5,000 unit Ertapenem 1 gm/ Sodium (Chloride) 50 mls @ 100 mls/hr IVPB DAILY COUNTS INCLUDE 234 BEDS AT THE [facility] PRN Reason: Protocol Last Admin: 01/17/17 09:55 Dose: 100 mls/hr Insulin Aspart (Novolog Vial Sliding Scale -) 1 vial SQ ACHS COUNTS INCLUDE 234 BEDS AT THE [facility] PRN Reason: Protocol Last Admin: 01/17/17 06:09 Dose: Not Given Insulin Detemir (Levemir Vial) 5 units SQ HS COUNTS INCLUDE 234 BEDS AT THE [facility] Last Admin: 01/16/17 21:53 Dose: 5 units Levothyroxine Sodium 88 mcg/ (Levothyroxine Sodium 100 mcg) 188 mcg PO DAILY@ 0700 COUNTS INCLUDE 234 BEDS AT THE [facility] Last Admin: 01/17/17 06:09 Dose: 188 mcg Metoprolol Tartrate (Lopressor -) 25 mg PO BID COUNTS INCLUDE 234 BEDS AT THE [facility] Last Admin: 01/17/17 09:55 Dose: 25 mg Oxycodone/Acetaminophen (Percocet 5/325 -) 2 combo PO Q6H PRN PRN Reason: PAIN LEVEL 6-10 Last Admin: 01/17/17 06:09 Dose: 2 combo Pantoprazole Sodium (Protonix -) 40 mg PO DAILY COUNTS INCLUDE 234 BEDS AT THE [facility] Last Admin: 01/17/17 09:55 Dose: 40 mg Quetiapine Fumarate (Seroquel -) 12.5 mg PO DAILY COUNTS INCLUDE 234 BEDS AT THE [facility] Last Admin: 01/17/17 09:55 Dose: 12.5 mg - Objective Vital Signs: Vital Signs Temperature 97.5 F L 01/17/17 05:59 Pulse Rate 56 L 01/17/17 05:59 Respiratory Rate 20 01/17/17 05:59 Blood Pressure 142/67 01/17/17 05:59 O2 Sat by Pulse Oximetry (%) 98 01/15/17 21:00 Neck: Yes: Supple Cardiovascular: Yes: Regular Rate and Rhythm, S1, S2 Respiratory: Yes: CTA Bilaterally Gastrointestinal: Yes: Normal Bowel Sounds, Soft. No: Tenderness Edema: No Labs: CBC, BMP 01/17/17 06:30 01/17/17 06:30 Problem List - Problems (1) SHARMILA (acute kidney injury) Code(s): N17.9 - ACUTE KIDNEY FAILURE, UNSPECIFIED (2) Diabetes mellitus Code(s): E11.9 - TYPE 2 DIABETES MELLITUS WITHOUT COMPLICATIONS (3) Diabetic ketoacidosis with coma Code(s): E13.11 - OTH DIABETES MELLITUS WITH KETOACIDOSIS WITH COMA (4) HTN (hypertension) Code(s): I10 - ESSENTIAL (PRIMARY) HYPERTENSION (5) Nephrostomy complication Code(s): N99.528 - OTHER COMP OF INCONTINENT EXTERNAL STOMA OF URINARY TRACT Assessment/Plan 1. Hypertension 2. Diabetes mellitus 3. Organic brain/dementia/developmental delay (mild) 4. Recent DKA 5. Post respiratory failure requiring intubation 6. Acute on CKD 7. Obstructive uropathy nephrostomy tube insertion PLAN: 1. Continue Metoprolol Tartrate and Amlodipine 2. Continue Plavix 3. Continue antibiotic coverage 4. Monitor renal function and electrolytes 5. Transthoracic echocardiography pending - report to follow Further plans are to follow Bronson Monzon MD
--- NOTE | 2017-01-17 11:21 | DS ---
Physical Exam: SUBJECTIVE: Patient seen and examined. He denies any pain or discomfort. OBJECTIVE: For discharge back to [place] with close follow up with Urologist for continued workup. Vital Signs Period Temp Pulse Resp BP Sys/[place] Pulse Ox Last 24 Hr 97.5 F-97.8 F 56-66 20 142-155/65-67 PHYSICAL EXAM GENERAL: The patient is awake, alert, and fully oriented, in no acute distress, denies pain HEAD: Normal with no signs of trauma. EYES: PERRL, extraocular movements intact, sclera anicteric, conjunctiva clear. No ptosis. ENT: Ears normal, nares patent, oropharynx clear without exudates, moist mucous membranes. NECK: Trachea midline, full range of motion, supple. LUNGS: Breath sounds equal, clear to auscultation bilaterally, no wheezes, no crackles, no accessory muscle use. ABDOMEN: Soft, nontender, nondistended, normoactive bowel sounds, no guarding, no rebound, no hepatosplenomegaly, no masses. NEUROLOGICAL: Normal speech, gait not observed. PSYCH: Normal mood, normal affect. SKIN: mcbride catheter and right neph. tube in place, both draining clear yellow urine LABS Laboratory Results - last 24 hr 01/16/17 01/16/17 01/16/17 11:50 17:02 21:51 WBC RBC Hgb Hct MCV MCH MCHC RDW Plt Count MPV Neutrophils % Lymphocytes % Monocytes % Eosinophils % Basophils % Sodium Potassium Chloride Carbon Dioxide Anion Gap BUN Creatinine Creat Clearance w eGFR POC Glucometer 116 366 125 Random Glucose Calcium Phosphorus Magnesium Total Bilirubin AST ALT Alkaline Phosphatase Total Protein Albumin 01/17/17 01/17/17 01/17/17 06:08 06:30 06:30 WBC 4.6 RBC 3.21 L Hgb 9.6 L Hct 28.8 L MCV 89.6 MCH 29.9 MCHC 33.4 RDW 14.9 Plt Count 246 D MPV 6.7 L Neutrophils % 43.9 Lymphocytes % 41.6 H D Monocytes % 7.7 Eosinophils % 6.0 H Basophils % 0.8 Sodium 140 Potassium 3.9 Chloride 101 Carbon Dioxide 31 Anion Gap 8 BUN 21 H Creatinine 1.5 H Creat Clearance w eGFR 46.82 POC Glucometer 134 Random Glucose 134 H Calcium 8.7 Phosphorus 2.3 L Magnesium 1.9 Total Bilirubin 0.4 AST 8 L D ALT 12 Alkaline Phosphatase 103 Total Protein 6.9 Albumin 2.4 L HOSPITAL COURSE: Date of Admission:01/07/17 Date of Discharge: 01/17/17 ASSESSMENT/PLAN: Patient is a 66 year old male with a significant pasts medical history of HTN, dementia/psych disorder, h/o CVA on Plavix, IDDM, h/o DVTs with IVC filter, hypothyroidism, basal cell carcinoma, CKD, newly diagnosed prostate adenocarcinoma obstructing bilateral ureters, s/p left ureteral JJ stent (2015), s/p right nephrostomy tube replacement (01/09/17) and paraplegia. ID: UTI +ESBL - treated A/P: + urine cultures with Klebsiella ESBL UTI Completed Ertapenem x 7 doses, contact isolation for resistant Klebsiella Vitals stable, remains afebrile: monitor outpatient : Acute Kidney injury/Acute on chronic renal insufficiency - much improved Bilateral ureteral obstruction secondary to prostate adenocarcinoma A/P: right nephrostomy tube replacement on 01/09, +mcbride cath for left kidney urine drainage making urine, monitor intake and output - repeat labs as an outpatient within 1 week after discharge Renal following, Dr. Rivera is patient's outpatient urologist, will need to follow up outpatient Prostate adenocarcinoma - new diagnosis, to follow Dr. Rivera outpatient once discharged A/P: 01/09 CTAP shows right hydronephrosis with ureter dilated to pelvic region, no stones; left renal stent, non-obstructing nephrolithiasis Urology following, patient son asked for oncology consult Cardiology: Hypertension - improved, monitor BP as an outpatient A/P: On Lopressor 25mg BID and Novasc 10mg daily - new medications Monitor BP Endocrine: DKA - now resolved, anion gap closed A/P: Check blood sugars ac/hs, On Levemir and sliding scale Hypothyroidism - chronic/new dose of Synthroid A/P: elevated TSH @19.30, increased Synthroid on 01/14 to 188mcgs Please repeat TSH in 6 weeks to monitor Psyche: Psyche disorder/dementia - chronic A/P: Patient has long history of anti-social behavior and has been under psychiatric care Has multiple angry outbursts and often refusing glucose checks and other cares Started on seroquel 12.5mg daily, titrate as needed for agitation Psyche evaluated patient during hospitalization Disposition: Discharge back to [facility]. Will need urology appointment follow up within 1 week after discharge. Full code. Minutes to complete discharge: 60 Discharge Summary Reason For Visit: DISPLACEMENT OF NEPHROSTOMY TUBE Current Active Problems SHARMILA (acute kidney injury) (Acute) Diabetes mellitus (Acute) Diabetic ketoacidosis with coma (Acute) HTN (hypertension) (Acute) Nephrostomy complication (Acute) Condition: Improved - Instructions Diet, Activity, Other Instructions: Mr. Rodriguez: Please follow up with Dr. Rivera within one week for further workup. Please call us with any questions that you may have. Check TSH in 6 weeks [facility] [phone] Referrals: Ruben Rivera MD [Staff Physician] - Disposition: [facility] F[facility] - Home Medications Comprehensive Discharge Medication List: Ambulatory Orders Carboxymethylcellulose Sodium [Refresh Plus] 1 each OP DAILY 01/07/17 Clopidogrel Bisulfate [Plavix -] 75 mg PO DAILY 01/07/17 Insulin Glargine,Hum.rec.anlog [Lantus (nf)] 12 units SQ HS 01/07/17 Insulin Sliding Scale [Novolog Vial Sliding Scale -] 0 units SQ TIDAC 01/07/17 Levothyroxine [Synthroid -] 175 mcg PO DAILY 01/07/17 Metoprolol Succinate [Toprol Xl -] 25 mg PO PRN 01/07/17 Metoprolol Tartrate [Lopressor -] 12.5 mg PO BID 01/07/17 Oxycodone HCl/Acetaminophen [Percocet 5-325 mg Tablet] 2 tab PO Q6H 01/07/17 Ranitidine HCl [Zantac] 150 mg PO DAILY 01/07/17 This patient is new to me today: No Emergency Visit: Yes ED Registration Date: 01/07/17 Care time: The patient presented to the Emergency Department on the above date and was hospitalized for further evaluation of their emergent condition. Critical Care patient: No - Discharge Referral Referred to [facility] No
[2017-01-17] MEDS ORDERED: INSULIN (NOVOLOG) ASPART 100 UNITS/ML 10ML VIAL ONE (11:33)
[2017-01-17] MEDS: HEPARIN NA (PORCINE) 5,000 UNITS/ML 1ML VIAL SQ SCH (11:41)
[2017-01-17 14:48] VITALS: BP 122/60; PULSE 55; TEMP 98.5
== END 2017-01-17 15:30 | DRG 698 ==
LOC: JER 12:32 → JERBED 15:09 → J5S 19:03 → JICU 01-08 08:29 → J6S 01-12 12:55
PROVIDERS: ADMIT Internal Medicine; ATTEND Nurse Practitioner Family
PROC: 0BH17EZ Insertion of Endotracheal Airway into Trachea, Via Natural or Artificial Opening (ICD-10-PCS; principal; 2017-01-08)
PROC: 5A1945Z Respiratory Ventilation, 24-96 Consecutive Hours (ICD-10-PCS; 2017-01-08)
PROC: 0T9B70Z Drainage of Bladder with Drainage Device, Via Natural or Artificial Opening (ICD-10-PCS; 2017-01-08)
PROC: 0T25X0Z Change Drainage Device in Kidney, External Approach (ICD-10-PCS; 2017-01-09)
DX: T83.89XA Other specified complication of genitourinary prosthetic devices, implants and grafts, initial encounter (principal); E13.10 Other specified diabetes mellitus with ketoacidosis without coma; J96.00 Acute respiratory failure, unspecified whether with hypoxia or hypercapnia; A41.9 Sepsis, unspecified organism; E87.1 Hypo-osmolality and hyponatremia; N17.9 Acute kidney failure, unspecified; G82.20 Paraplegia, unspecified; E87.2 Acidosis; N13.30 Unspecified hydronephrosis; N39.0 Urinary tract infection, site not specified; E11.22 Type 2 diabetes mellitus with diabetic chronic kidney disease; I12.9 Hypertensive chronic kidney disease with stage 1 through stage 4 chronic kidney disease, or unspecified chronic kidney disease; N18.9 Chronic kidney disease, unspecified; Y84.6 Urinary catheterization as the cause of abnormal reaction of the patient, or of later complication, without mention of misadventure at the time of the procedure; Y92.122 Bedroom in nursing home as the place of occurrence of the external cause; Z79.4 Long term (current) use of insulin; Z86.718 Personal history of other venous thrombosis and embolism; Z79.01 Long term (current) use of anticoagulants; F03.90 Unspecified dementia, unspecified severity, without behavioral disturbance, psychotic disturbance, mood disturbance, and anxiety; Z85.828 Personal history of other malignant neoplasm of skin; Z86.73 Personal history of transient ischemic attack (TIA), and cerebral infarction without residual deficits; E78.5 Hyperlipidemia, unspecified; Z74.01 Bed confinement status; Z53.29 Procedure and treatment not carried out because of patient's decision for other reasons; F79 Unspecified intellectual disabilities; E83.52 Hypercalcemia; R33.9 Retention of urine, unspecified; N31.9 Neuromuscular dysfunction of bladder, unspecified; N40.0 Benign prostatic hyperplasia without lower urinary tract symptoms; R19.09 Other intra-abdominal and pelvic swelling, mass and lump; N32.89 Other specified disorders of bladder; E87.5 Hyperkalemia; C61 Malignant neoplasm of prostate; N13.5 Crossing vessel and stricture of ureter without hydronephrosis; R15.0 Incomplete defecation; Z91.14 Patient's other noncompliance with medication regimen; B96.1 Klebsiella pneumoniae [K. pneumoniae] as the cause of diseases classified elsewhere; Z51.89 Encounter for other specified aftercare; Z72.811 Adult antisocial behavior; D72.819 Decreased white blood cell count, unspecified; I16.0 Hypertensive urgency; Z99.3 Dependence on wheelchair
CPT/HCPCS: 31500; 36415; 36600; 50432; 71010-TC; 74176-TC; 76098-TC; 76705-TC; 76775-TC; 78708-TC; 80048; 80053; 81003; 81015; 82436; 82570; 82803; 83735; 84100; 84133; 84156; 84300; 84443; 85025; 85027; 85610; 85730; 87040; 87086; 87186; 87389; 87899; 93005; 93010; 94002; 97161-GP; 99282-25; A4358; A9562; C1729; C1769; C1887; J1644